=== PATIENT | female | born 1930 | race Caucasian/White ===

== ENCOUNTER 2016-06-29 17:44 | Inpatient (IN) | payer OTHER, BC ==
[~2016-06-29] VITALS: Ht 144.8 cm; Wt 38.8 kg
[~2016-06-29 17:44] MED LIST: ACET-1311 PO; ARTIOIN OPB; ASPI-435 PO; BSP/10 PO; CALC-211 PO; CARB25TA12 PO; CARB50TA3 PO; CHOL100010 PO; CYAN100020 PO; FERR325T18 PO; MIRT15TA PO; PANC1CAP PO; PANC1CAP17 PO; POLY99.02 OPB; ROPI2TAB PO; SENN-65 PO; SERT20CO PO
[2016-06-29] MEDS ORDERED: SODIUM CHLORIDE 0.9% 500ML 500 ML IV STA (18:06)
[2016-06-29 18:30] LABS: BASO % 0.3 %; BASO ABS # 0.04 K/uL (0-0.2); COMPLETE YES; EOS % 0.3 %; HEMATOCRIT 29.9 % (37-47); IG% 0.2 %; LYMPH % 11.7 %; LYMPH ABS # 1.45 K/uL (1.2-3.4); MEAN CELL VOLUME 92.6 fL (80-100); MEAN CORPUSCULAR HEMOGLOBIN 31.6 pg (25-34); MEAN CORPUSCULAR HGB CONC 34.1 g/dl (32-36); MEAN PLATELET VOLUME 10.5 fL (7.4-10.4); MONO % 11.8 %; NEUT % 75.7 %; PLATELET COUNT 413 K/uL (130-400); RED BLOOD COUNT 3.23 M/uL (4.2-5.4); WHITE BLOOD COUNT 12.38 K/uL (4.8-10.8)
--- NOTE | 2016-06-29 18:39 | DIAGNOSTIC IMAGING REPORT ---
SINGLE VIEW CHEST CLINICAL HISTORY: Change in mental status. FINDINGS: An AP, portable, upright chest radiograph is compared to study dated 02/11/2014. The examination is significantly degraded by portable technique and patient rotation. The heart is mildly enlarged and there is atherosclerotic calcification of the thoracic aorta. The pulmonary vasculature is noncongested. Chronic elevation of the right hemidiaphragm and chronic interstitial thickening is unchanged from previous. No airspace consolidation, large pleural effusion, or pneumothorax is seen. The skeletal structures are osteopenic. Scoliosis is noted in the thoracic spine. Arthritic change is present in the shoulders, left greater than right. IMPRESSION: Cardiomegaly with no acute cardiopulmonary abnormality. Electronically signed by: Landon Loo M.D. 06/29/2016 6:37 PM Dictated Date/Time: 06/29/2016 6:36 PM
[2016-06-29 18:56] LABS: ALT/SGPT 7 U/L (12-78); AST/SGOT 11 U/L (15-37); BLOOD UREA NITROGEN 38 mg/dl (7-18); BUN/CREATININE RATIO 37.7 (10-20); CALCIUM 9.9 mg/dl (8.5-10.1); CARBON DIOXIDE 28 mmol/L (21-32); CHLORIDE 107 mmol/L (98-107); GLUCOSE 95 mg/dl (70-99); MAGNESIUM 2.3 mg/dl (1.8-2.4); SODIUM 145 mmol/L (136-145)
[2016-06-29 19:01] LABS: ALKALINE PHOSPHATASE 85 U/L (45-117)
--- NOTE | 2016-06-29 19:04 | DIAGNOSTIC IMAGING REPORT ---
CT SCAN OF THE BRAIN WITHOUT IV CONTRAST CLINICAL HISTORY: Change in mental status. COMPARISON STUDY: CT of the brain dated 11/13/2015. TECHNIQUE: Unenhanced axial CT scan of the brain is performed from the vertex to the skull base. CT DOSE: 537.48 mGy.cm FINDINGS: Brain parenchyma: There are age-related involutional changes noting moderate subcortical and periventricular microangiopathic change. There is no hemorrhage, mass effect, or evidence of acute territorial ischemia by CT criteria. Lopes-white matter is preserved. No extra-axial fluid collection is seen. Ventricles, sulci, cisterns: Prominent secondary to involutional change. Intracranial vasculature: There is atherosclerotic calcification of the cavernous carotid and vertebral arteries. Calvarium: Unremarkable. Sinuses and mastoids: There is subtotal opacification of the left maxillary antrum with an air-fluid level. The remaining the visualized paranasal sinuses are clear. The mastoid air cells are well pneumatized. Orbits: The bony orbits are grossly intact. There are bilateral ocular lens implants. IMPRESSION: 1. Senescent changes as above with no hemorrhage, mass effect, or evidence of acute territorial ischemia by CT criteria. 2. Left maxillary sinus disease as above. Electronically signed by: Landon Loo M.D. 06/29/2016 7:02 PM Dictated Date/Time: 06/29/2016 6:59 PM
[2016-06-29 19:13] LABS: INR 1.1 (0.9-1.1); PARTIAL THROMBOPLASTIN RATIO 1.1
[2016-06-29] MEDS ORDERED: SODIUM CHLORIDE 0.9% 1000ML 1,000 ML IV STA (19:47)
[2016-06-29] MEDS ORDERED: ALUMINUM/MAGNESIUM/SIMETH (MAALOX MAX) 30 ML UDC PO PRN (20:45)
[2016-06-29] MEDS ORDERED: POLYETHYLENE (MIRALAX) 17 GM PACK PO PRN (20:45)
[2016-06-29] MEDS ORDERED: PANCREAZE (LIPASE 10,500U) CAP PO PRN (20:45)
[2016-06-29] MEDS ORDERED: MAGNESIUM HYDROXIDE SUSP 30 ML UDC PO PRN (20:45)
[2016-06-29] MEDS ORDERED: ONDANSETRON INJ 2 MG/ML 2 ML VIAL IV PRN (20:45)
[2016-06-29] MEDS ORDERED: ACETAMINOPHEN 325 MG TAB PO PRN (20:45)
[2016-06-29] MEDS ORDERED: CARBIDOPA/LEVODOPA 50/200MG EXT REL TAB PO SCH ×2 (21:00→23:00)
--- NOTE | 2016-06-29 21:06 | History and Physical ---
History & Physical Date & Time of Service: Jun 29, 2016 at 20:51 Chief Complaint: Low Grade Fever, Lethargy, Lack Of Appetite Primary Care Physician: Caryn Cho DO History of Present Illness Source: family Nishi Cruz is an 85 yo F with Parkinson's disease who resides at [facility] assisted living who presents with her daughter and son-in-law. The patient was sleeping upon my evaluation and did not communicate, so history was limited and taken from her daughter. Per daughter, she reports over the last 2 weeks the patient has not been eating or drinking much at all. She had a low grade fever last week ranging from 99-100F. She also seemed to not be as interactive as usual. She reportedly has lost weight over the recent months. The nurses at [facility] report her urine also smelled but did not have a sample to test. The daughter reports the patient's Parkinson's is mild but progressing - she does swallow but it takes encouraging from her daughter. She has no history of aspiration. She has not been coughing lately. Past Medical/Surgical History Medical Problems: (1) Closed left clavicular fracture Status: Resolved (2) Closed right tibial fracture Status: Resolved (3) Cushings syndrome Status: Chronic (4) Encounter for removal of michelle Status: Resolved (5) Fall Status: Resolved (6) Fall Status: Resolved (7) Fall at home Status: Resolved (8) Fracture of distal fibula Status: Resolved (9) Head injury Status: Resolved (10) Hypertension Status: Chronic (11) Laceration Status: Resolved (12) Parkinson disease Status: Chronic (13) Right Tibia and Fibula fractures Status: Resolved (14) Right Tibia Fracture Status: Resolved (15) Scalp laceration Status: Resolved (16) Scalp laceration Status: Resolved (17) Scalp laceration Status: Resolved Surgical Problems: (1) History of bilateral mastectomy Status: Resolved (2) History of cataract surgery Status: Resolved (3) History of hip replacement, total Status: Resolved (4) History of splenectomy Status: Resolved (5) Hx of total adrenalectomy Status: Resolved Family History Breast Ca Social History Smoking Status: Never Smoker Drug Use: none Marital Status: Occupational Status: retired Allergies Coded Allergies: Egg (Unverified Allergy, Unknown, UNKNOWN, 06/29/16) Penicillins (Verified Allergy, Unknown, RASH, 06/29/16) Spoke w daughter (Janine), who confirmed w Nishi that reaction was rash. Believes the reaction was to penicillin itself (vs. amoxicillin, etc). Home Medications Scheduled Artificial Tears (Artificial Tears), 1 DROPS OPB BID Artificial Tears Oph Oint (Lacri-Lube Sop Oph Oint), 1 APPLN OPB HS Aspirin (Aspirin 81), 81 MG PO DAILY Buspirone HCl (Buspirone HCl), 10 MG PO TID Calcium Carbonate-Cholecalcife (Oyster Shell Calcium + D), 1 TAB PO DAILY Carbidopa/Levodopa (Sinemet 25MG/100MG), 0.5 TAB PO 5XD Carbidopa/Levodopa (Sinemet Cr 50MG/200MG), 0.5 TAB PO 5XD Carbidopa/Levodopa (Sinemet Cr 50MG/200MG), 1 TAB PO HS Cholecalciferol (Vitamin D), 5,000 MG PO DAILY Cyanocobalamin (Vitamin B12), 1,000 MCG PO DAILY Ferrous Gluconate (Ferrous Gluconate), 324 MG PO DAILY Mirtazapine (Remeron), 15 MG PO DAILY Pancrelipase (Lipase-Protease- (Zenpep), 10,000 UNITS PO TIDM Ropinirole Hydrochloride (Requip Xl), 1 TAB PO DAILY Senna/Docusate Sod (Senokot S), 1-2 TAB PO HS Sertraline Hcl (Zoloft), 6 ML PO DAILY Scheduled PRN Acetaminophen (Tylenol), 650 MG PO Q6 PRN for Pain or Fever Pancrelipase (Lipase-Protease- (Zenpep [id number] Unit), 2 CAP PO UD PRN for W/SNACKS Review of Systems See HPI for pertinent positives & negatives, as per daughter. A total of 10 systems reviewed and were otherwise negative. Physical Exam Vital Signs Date Time Temp Pulse Resp B/P Pulse Ox O2 Delivery O2 Flow Rate FiO2 06/29/16 20:25 78 17 153/91 97 Room Air 06/29/16 18:37 37.3 79 20 145/87 95 06/29/16 18:10 81 06/29/16 18:03 94 06/29/16 18:03 36.7 83 96 Room Air 06/29/16 17:51 82 18 127/87 96 Room Air General Appearance: WD/WN, + cachetic, + thin Head: normocephalic, atraumatic Eyes: normal inspection, + pertinent finding (mild conjunctivitis R eye) ENT: + pertinent finding (dry) Neck: no JVD, no carotid bruits Respiratory/Chest: lungs clear, normal breath sounds, no respiratory distress Cardiovascular: regular rate, rhythm, no murmur, normal peripheral pulses Abdomen/GI: normal bowel sounds, non tender, soft Extremities/Musculoskelatal: no calf tenderness, no pedal edema Skin: + pertinent finding (small abrasian to R heel) Diagnostics Laboratory Results Results Past 24 Hours Test 06/29/16 18:18 Range/Units White Blood Count 12.38 4.8-10.8 K/uL Red Blood Count 3.23 4.2-5.4 M/uL Hemoglobin 10.2 12.0-16.0 g/dL Hematocrit 29.9 37-47 % Mean Corpuscular Volume 92.6 80-100 fL Mean Corpuscular Hemoglobin 31.6 25-34 pg Mean Corpuscular Hemoglobin Concent 34.1 32-36 g/dl Platelet Count 413 130-400 K/uL Mean Platelet Volume 10.5 7.4-10.4 fL Neutrophils (%) (Auto) 75.7 % Lymphocytes (%) (Auto) 11.7 % Monocytes (%) (Auto) 11.8 % Eosinophils (%) (Auto) 0.3 % Basophils (%) (Auto) 0.3 % Neutrophils # (Auto) 9.37 1.4-6.5 K/uL Lymphocytes # (Auto) 1.45 1.2-3.4 K/uL Monocytes # (Auto) 1.46 0.11-0.59 K/uL Eosinophils # (Auto) 0.04 0-0.5 K/uL Basophils # (Auto) 0.04 0-0.2 K/uL RDW Standard Deviation 45.5 36.4-46.3 fL RDW Coefficient of Variation 13.5 11.5-14.5 % Immature Granulocyte % (Auto) 0.2 % Immature Granulocyte # (Auto) 0.02 0.00-0.02 K/uL Prothrombin Time 12.0 9.0-12.0 SECONDS Prothromb Time International Ratio 1.1 0.9-1.1 Activated Partial Thromboplast Time 29.0 21.0-31.0 SECONDS Partial Thromboplastin Ratio 1.1 Sodium Level 145 136-145 mmol/L Potassium Level 4.0 3.5-5.1 mmol/L Chloride Level 107 98-107 mmol/L Carbon Dioxide Level 28 21-32 mmol/L Anion Gap 10.0 3-11 mmol/L Blood Urea Nitrogen 38 7-18 mg/dl Creatinine 1.00 0.60-1.20 mg/dl Estimated GFR () 59.9 Estimated GFR (Non- 51.7 BUN/Creatinine Ratio 37.7 10-20 Random Glucose 95 70-99 mg/dl Calcium Level 9.9 8.5-10.1 mg/dl Magnesium Level 2.3 1.8-2.4 mg/dl Total Bilirubin 0.6 0.2-1 mg/dl Direct Bilirubin 0.1 0-0.2 mg/dl Aspartate Amino Transf (AST/SGOT) 11 15-37 U/L Alanine Aminotransferase (ALT/SGPT) 7 12-78 U/L Alkaline Phosphatase 85 45-117 U/L Troponin I < 0.015 0-0.045 ng/ml Total Protein 7.6 6.4-8.2 gm/dl Albumin 3.1 3.4-5.0 gm/dl Diagnostic Radiology SINGLE VIEW CHEST CLINICAL HISTORY: Change in mental status. FINDINGS: An AP, portable, upright chest radiograph is compared to study dated 02/11/2014. The examination is significantly degraded by portable technique and patient rotation. The heart is mildly enlarged and there is atherosclerotic calcification of the thoracic aorta. The pulmonary vasculature is noncongested. Chronic elevation of the right hemidiaphragm and chronic interstitial thickening is unchanged from previous. No airspace consolidation, large pleural effusion, or pneumothorax is seen. The skeletal structures are osteopenic. Scoliosis is noted in the thoracic spine. Arthritic change is present in the shoulders, left greater than right. IMPRESSION: Cardiomegaly with no acute cardiopulmonary abnormality. CT HEAD: IMPRESSION: 1. Senescent changes as above with no hemorrhage, mass effect, or evidence of acute territorial ischemia by CT criteria. 2. Left maxillary sinus disease as above. Normal EKG Impression Assessment and Plan 85 yo F with lethargy, likely from dehydration,contributing to possible infection - urine vs sinusitis, with conjunctivitis. Plan: Dehydration - Fluid rehydration with 1/2NS with 20mmoL KCL 100mL hour. Received 2 fluid boluses in ED. Infection - pending UA, multiple failed attempts in ED, but left sinusitis on CT - will treat with Rocephin for now Conjunctivitis - Eyedrops to both eyes as prescribed Parkinson's disease - Continue home regime of Sinemet ER 50/200 0.5tablets 5x/ day and 1 tablet qHS, with Sinemet 25/100 0.5tablets 5x/day. Continue Ropinirole. Heel abrasion: Waffle boots PT/OT/Speech study - would benefit from doing this while daughter is there if able to coordinate this VTE: Heparin CODE STATUS: DNR Dispo: Med/Surg VTE Prophylaxis VTE Risk Assessment Done? Y/N: Yes Risk Level: Moderate Resident Tracking Resident Involvement: Resident Care Provided Care Provided: [facility] Medicine Assessment and Plan Attending addendum: I have personally seen and examined this patient, supervised the resident's activity, and my H&P is as follows below. HPI: The patient is an 85-year-old female resident of [facility] with a known history of Parkinson's disease who is brought to the emergency department by her daughter and son-in-law due to lethargy, decreased oral intake over the past 2 weeks, with last substantive meal 2 days ago, and temperature last week ranging from 99-100F. The nurses at [facility] had noted that her urine had a stronger smell than usual and because of the combination of signs and symptoms the patient was brought to the emergency department for assessment. She does have a history of slowly progressive Parkinson's disease, but at a baseline has been interactive with family and nurses. The patient only briefly opens her eyes, and most of the history of present illness and review of systems is obtained from her daughter, who is very involved in her care. Review of systems: The patient's daughter denies that the patient has had chest pain, palpitations , shortness of breath, cough, lower extremity swelling, vision change, hearing change, sore throat, nausea, vomiting, abdominal pain, pelvic pain, blood in urine or stool, headache, rash, abnormal bruising or bleeding, imbalance, focal weakness, numbness or tingling in arms or legs, night sweats, or allergy symptoms. The review of systems is otherwise negative other than for that already noted above, and at least 10 systems have been reviewed. 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 Lacri-Lube ophthalmic ointment, 1 application OPB at bedtime. Aspirin 81 mg by mouth daily. Buspirone 10 mg by mouth 3 times a day. Calcium carbonate 1 tablet by mouth daily. Carbidopa/levodopa 25/100, 0.5 tabs by mouth 5 times per day. Carbidopa/levodopa CR 50/200, 0.5 tablets by mouth 5 times per day. Carbidopa/levodopa CR 50/200, 1 by mouth at bedtime. Cholecalciferol, 5000 mg by mouth daily. Cyanocobalamin 1000 g by mouth daily. Ferrous gluconate 324 mg by mouth daily. Mirtazapine 15 mg by mouth at bedtime. Pancrelipase 10,000 units by mouth 3 times a day with meals. Ropinirole 2 mg by mouth at bedtime. Senokot-S one to 2 tablets by mouth at bedtime. Sertraline 20 mg per mL concentrate, taking 6 mils by mouth daily, for a total 120 mg. Physical examination: The patient is lethargic, does open her eyes to her name being called by her daughter, is lying in bed and in no acute distress. HEENT--PERRL, mucous membranes and oropharynx dry. Crusting at the bases both lashes bilaterally. Neck--supple, no JVD or bruits, thyroid normal, trachea midline, no adenopathy. Heart--normal S1 and S2, no extra beats, no murmurs, rubs or gallops. Lungs--diminished throughout, no respiratory distress, no accessory muscle use. Abdomen--normal bowel sounds and soft, nontender and nondistended, no hernias or masses, no organomegaly. Extremities--no cyanosis, clubbing or edema. There are good distal pulses b/l. Dermatologic--right heel with softening and small abrasion. Neurologic--cranial nerves II through XII grossly intact. Rheumatologic--deferred Psychiatric--lethargic. Imaging studies: Chest x-ray--no acute findings. CT of the head without contrast--left maxillary sinusitis. Urinalysis--positive for infection. Assessment and plan: Altered mental status--secondary to UTI, left maxillary sinusitis, and overall decreased oral intake leading to dehydration. The patient will be admitted to the medical floor, place on ceftriaxone 1 g IV daily, follow urine culture and sensitivity reports, and CBCD, BMP and magnesium levels. Place on half-normal saline with potassium chloride 20 mEq at 100 mils per hour. Bilateral conjunctivitis--place on sulfa Sulamyd ophthalmic solution 10% concentration 2 drops OPB 4 times a day. Parkinson's disease--continue regimen above as outlined. Early Right heal skin changes--incipient stage of injury taking place, we'll place and waffle boots prophylactically. Restless leg syndrome--continue ropinirole 2 mg by mouth at bedtime Anxiety/depression continue sertraline 120 mg liquid by mouth daily and buspirone 10 mg by mouth 3 times a day. Plan B12 deficiency--continue with his micrograms by mouth daily supplement. Malabsorption syndrome--continue pancrelipase as outlined above. Deconditioning--we'll consult PT/OT, discussed with daughter that since her mother stays at [facility], she may need a brief stay at [facility] or other rehabilitation facility prior to go back there if she remains weak. DVT prophylaxis--SCDs and heparin subcutaneous.
--- NOTE | 2016-06-29 21:10 | EMERGENCY ROOM VISIT NOTE ---
History Report prepared by Harsha: Yovana Peterson Under the Supervision of: Dr. Jorge Alamo D.O. First contact with patient: 17:53 Chief Complaint: LETHARGIC Stated Complaint: LOW GRADE FEVER, LETHARGY, LACK OF APPETITE History of Present Illness The patient is a 85 year old female who presents to the Emergency Room via family to be evaluated for worsening lethargy over the past 6 days. Per patient' s daughter, the patient has been running a low-grade fever below 100.4. She has not been eating or drinking compared to baseline. At baseline, she is able to feed herself, talk, and walk with a walker. Currently, she is not able to ambulate on her own. A week ago, the patient went on a walk with her daughter and seemed to be her normal self, but started to decline the following day. Per patient's daughter, staff at the assisted living facility where the patient resides have noticed that her urine smells foul. Pt denies headache, change in vision, chest pain, shortness of breath, nausea, vomiting, diarrhea, pain with urination, and melena. Source of History: patient, family Onset: 6 days ago Position: other (Global) Quality: other (lethargic) Timing: worsening Associated Symptoms: + fevers (low-grade), + urinary symptoms (foul smelling urine), No SOB, No chest pain, No diarrhea, No headache, No melena, No nausea, No vomiting Note: Other symptoms: decreased appetite Review of Systems See HPI for pertinent positives & negatives. A total of 10 systems reviewed and were otherwise negative. Past Medical & Surgical Medical Problems: (1) Closed left clavicular fracture (2) Closed right tibial fracture (3) Cushings syndrome (4) Dehydration (5) Encounter for removal of michelle (6) Fall (7) Fall (8) Fall at home (9) Fracture of distal fibula (10) Head injury (11) Hypertension (12) Laceration (13) Osteoporosis Nos (14) Parkinson disease (15) Right Tibia and Fibula fractures (16) Right Tibia Fracture (17) Scalp laceration (18) Scalp laceration (19) Scalp laceration (20) Urinary tract infection Surgical Problems: (1) History of bilateral mastectomy (2) History of cataract surgery (3) History of hip replacement, 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 Family History Noncontributory secondary to age. Social History Smoking Status: Never Smoker Alcohol Use: none Drug Use: none Marital Status: Housing Status: half-way Occupation Status: retired Current/Historical Medications Scheduled Artificial Tears (Artificial Tears), 1 DROPS OPB BID Artificial Tears Oph Oint (Lacri-Lube Sop Oph Oint), 1 APPLN OPB HS Aspirin (Aspirin 81), 81 MG PO DAILY Buspirone HCl (Buspirone HCl), 10 MG PO TID Calcium Carbonate-Cholecalcife (Oyster Shell Calcium + D), 1 TAB PO DAILY Carbidopa/Levodopa (Sinemet 25MG/100MG), 0.5 TAB PO 5XD Carbidopa/Levodopa (Sinemet Cr 50MG/200MG), 0.5 TAB PO 5XD Carbidopa/Levodopa (Sinemet Cr 50MG/200MG), 1 TAB PO HS Cholecalciferol (Vitamin D), 5,000 MG PO DAILY Cyanocobalamin (Vitamin B12), 1,000 MCG PO DAILY Ferrous Gluconate (Ferrous Gluconate), 324 MG PO DAILY Mirtazapine (Remeron), 15 MG PO DAILY Pancrelipase (Lipase-Protease- (Zenpep), 10,000 UNITS PO TIDM Ropinirole Hydrochloride (Requip Xl), 1 TAB PO DAILY Senna/Docusate Sod (Senokot S), 1-2 TAB PO HS Sertraline Hcl (Zoloft), 6 ML PO DAILY Scheduled PRN Acetaminophen (Tylenol), 650 MG PO Q6 PRN for Pain or Fever Pancrelipase (Lipase-Protease- (Zenpep 41315 Unit), 2 CAP PO UD PRN for W/SNACKS Allergies Coded Allergies: Egg (Unverified Allergy, Unknown, UNKNOWN, 06/29/16) Penicillins (Verified Allergy, Unknown, RASH, 06/29/16) Spoke w daughter (Janine), who confirmed w Nishi that reaction was rash. Believes the reaction was to penicillin itself (vs. amoxicillin, etc). Physical Exam Vital Signs Date Time Temp Pulse Resp B/P Pulse Ox O2 Delivery O2 Flow Rate FiO2 06/29/16 20:25 78 17 153/91 97 Room Air 06/29/16 18:37 37.3 79 20 145/87 95 06/29/16 18:10 81 06/29/16 18:03 94 06/29/16 18:03 36.7 83 96 Room Air 06/29/16 17:51 82 18 127/87 96 Room Air Physical Exam GENERAL: Cachectic, no acute distress, disheveled. EYE EXAM: normal conjunctiva OROPHARYNX: no exudate, no erythema, lips, buccal mucosa, and tongue normal and mucous membranes are moist NECK: supple, no nuchal rigidity, no adenopathy, non-tender LUNGS: Clear to auscultation. Normal chest wall mechanics HEART: no murmurs, S1 normal and S2 normal ABDOMEN: abdomen soft, non-tender, normo-active bowel sounds, no masses, no rebound or guarding. BACK: Back is symmetrical on inspection and there is no deformity, no midline tenderness, no CVA tenderness. SKIN: no rashes and no bruising UPPER EXTREMITIES: upper extremities are grossly normal. LOWER EXTREMITIES: No pitting edema. NEURO EXAM: Eyes are open and tracking, nods head to yes and no questions, non- verbal, able to give bilateral thumbs up and wiggle toes. Medical Decision & Procedures ER Provider Diagnostic Interpretation: Xray results per the radiologist and my interpretation. Other results have been interpreted by the radiologist and reviewed by me. CT SCAN OF THE BRAIN WITHOUT IV CONTRAST CLINICAL HISTORY: Change in mental status. COMPARISON STUDY: CT of the brain dated 11/13/2015. TECHNIQUE: Unenhanced axial CT scan of the brain is performed from the vertex to the skull base. CT DOSE: 537.48 mGy.cm FINDINGS: Brain parenchyma: There are age-related involutional changes noting moderate subcortical and periventricular microangiopathic change. There is no hemorrhage, mass effect, or evidence of acute territorial ischemia by CT criteria. Lopes-white matter is preserved. No extra-axial fluid collection is seen. Ventricles, sulci, cisterns: Prominent secondary to involutional change. Intracranial vasculature: There is atherosclerotic calcification of the cavernous carotid and vertebral arteries. Calvarium: Unremarkable. Sinuses and mastoids: There is subtotal opacification of the left maxillary antrum with an air-fluid level. The remaining the visualized paranasal sinuses are clear. The mastoid air cells are well pneumatized. Orbits: The bony orbits are grossly intact. There are bilateral ocular lens implants. IMPRESSION: 1. Senescent changes as above with no hemorrhage, mass effect, or evidence of acute territorial ischemia by CT criteria. 2. Left maxillary sinus disease as above. Electronically signed by: Landon Loo M.D. 06/29/2016 7:02 PM Dictated Date/Time: 06/29/2016 6:59 PM SINGLE VIEW CHEST CLINICAL HISTORY: Change in mental status. FINDINGS: An AP, portable, upright chest radiograph is compared to study dated 02/11/2014. The examination is significantly degraded by portable technique and patient rotation. The heart is mildly enlarged and there is atherosclerotic calcification of the thoracic aorta. The pulmonary vasculature is noncongested. Chronic elevation of the right hemidiaphragm and chronic interstitial thickening is unchanged from previous. No airspace consolidation, large pleural effusion, or pneumothorax is seen. The skeletal structures are osteopenic. Scoliosis is noted in the thoracic spine. Arthritic change is present in the shoulders, left greater than right. IMPRESSION: Cardiomegaly with no acute cardiopulmonary abnormality. Electronically signed by: Landon Loo M.D. 06/29/2016 6:37 PM Dictated Date/Time: 06/29/2016 6:36 PM Laboratory Results 06/29/16 18:18 Red Blood Count 3.23, Mean Corpuscular Volume 92.6, Mean Corpuscular Hemoglobin 31.6, Mean Corpuscular Hemoglobin Concent 34.1, Mean Platelet Volume 10.5, Neutrophils (%) (Auto) 75.7, Lymphocytes (%) (Auto) 11.7, Monocytes (%) (Auto) 11.8, Eosinophils (%) (Auto) 0.3, Basophils (%) (Auto) 0.3, Neutrophils # (Auto ) 9.37, Lymphocytes # (Auto) 1.45, Monocytes # (Auto) 1.46, Eosinophils # (Auto ) 0.04, Basophils # (Auto) 0.04 06/29/16 18:18 Test 06/29/16 18:18 White Blood Count 12.38 K/uL (4.8-10.8) Red Blood Count 3.23 M/uL (4.2-5.4) Hemoglobin 10.2 g/dL (12.0-16.0) Hematocrit 29.9 % (37-47) Mean Corpuscular Volume 92.6 fL (80-100) Mean Corpuscular Hemoglobin 31.6 pg (25-34) Mean Corpuscular Hemoglobin Concent 34.1 g/dl (32-36) Platelet Count 413 K/uL (130-400) Mean Platelet Volume 10.5 fL (7.4-10.4) Neutrophils (%) (Auto) 75.7 % Lymphocytes (%) (Auto) 11.7 % Monocytes (%) (Auto) 11.8 % Eosinophils (%) (Auto) 0.3 % Basophils (%) (Auto) 0.3 % Neutrophils # (Auto) 9.37 K/uL (1.4-6.5) Lymphocytes # (Auto) 1.45 K/uL (1.2-3.4) Monocytes # (Auto) 1.46 K/uL (0.11-0.59) Eosinophils # (Auto) 0.04 K/uL (0-0.5) Basophils # (Auto) 0.04 K/uL (0-0.2) RDW Standard Deviation 45.5 fL (36.4-46.3) RDW Coefficient of Variation 13.5 % (11.5-14.5) Immature Granulocyte % (Auto) 0.2 % Immature Granulocyte # (Auto) 0.02 K/uL (0.00-0.02) Prothrombin Time 12.0 SECONDS (9.0-12.0) Prothromb Time International Ratio 1.1 (0.9-1.1) Activated Partial Thromboplast Time 29.0 SECONDS (21.0-31.0) Partial Thromboplastin Ratio 1.1 Anion Gap 10.0 mmol/L (3-11) Estimated GFR () 59.9 Estimated GFR (Non- 51.7 BUN/Creatinine Ratio 37.7 (10-20) Calcium Level 9.9 mg/dl (8.5-10.1) Magnesium Level 2.3 mg/dl (1.8-2.4) Total Bilirubin 0.6 mg/dl (0.2-1) Direct Bilirubin 0.1 mg/dl (0-0.2) Aspartate Amino Transf (AST/SGOT) 11 U/L (15-37) Alanine Aminotransferase (ALT/SGPT) 7 U/L (12-78) Alkaline Phosphatase 85 U/L (45-117) Troponin I < 0.015 ng/ml (0-0.045) Total Protein 7.6 gm/dl (6.4-8.2) Albumin 3.1 gm/dl (3.4-5.0) Laboratory results per my review. Medications Administered Medications (Trade) Dose Ordered Sig/Laura Route Start Time Stop Time Status Last Admin Dose Admin Sodium Chloride 500 ml @ 999 mls/hr Q31M STAT IV 06/29/16 18:06 06/29/16 18:36 DC 06/29/16 18:40 999 MLS/HR Sodium Chloride (Nss 1000ml) 1,000 ml @ 999 mls/hr Q1H1M STAT IV 06/29/16 19:47 06/29/16 20:47 DC 06/29/16 19:47 999 MLS/HR ECG Indication: weakness Rate (beats per minute): 81 Rhythm: sinus rhythm Findings: left axis deviation, other (ST scooping, peaked T waves laterally) ED Course ED COURSE: Vital signs were reviewed and showed normal vitals. The patients medical record was reviewed The above diagnostic studies were performed and reviewed. ED treatments and interventions as stated above. 1800: The patient was evaluated in room C7. A complete history and physical examination was performed. 1805: Ordered NSS 500 ml @ 999 mls/hr IV. 1946: I reassessed the patient and spoke with the family about results. They would prefer to take her home, but will take some time to think about it. Ordered NSS 1000 ml @ 999 mls/hr IV. 2044: Upon reevaluation, the patient is stable.I discussed my findings with the patient's family and they understand and agree with the treatment plan. Based on the patients age, coexisting illnesses, exam and lab findings the decision to treat as an inpatient was made. The patient remained stable while under my care. The patient will be evaluated for further management. 2025: I discussed the case with Dr. Tucker [facility] Hospitalist. The patient will be evaluated for further management. Medical Decision Differential diagnoses includes but is not limited to toxic, metabolic, infectious, traumatic, cardiac, neurologic, hematologic, psychiatric and inflammatory etiologies. Patient is an 85-year-old female brought in by daughter from half-way for diffuse weakness. She is not been an drinking for the past several days. She' s been running low-grade fevers less than 100. Patient is nonverbal but answers questions by nodding her head. She is normally able to ambulate and carry on a conversation. She does have a history of Parkinson's. On exam she is very malnourished and cachectic. She has a mild leukocytosis of 12,000. No significant anemia. BMP along with LFTs, bilirubin, magnesium, troponin are all negative. Straight cath was performed but there is no urine. She is given 1.5 L normal saline. Patient family were updated at bedside. She is in its internal medicine for failure to thrive diffuse weakness. Consults Time Called: 2021 Consulting Physician: Dr. Garrett FLOWERS Hospitalist Returned Call: 2025 I discussed the case with Dr. Garrett FLOWERS Hospitalist. The patient will be evaluated for further management. Impression Primary Impression: Altered mental status Additional Impression: Weakness Scribe Attestation The scribe's documentation has been prepared under my direction and personally reviewed by me in its entirety. I confirm that the note above accurately reflects all work, treatment, procedures, and medical decision making performed by me. Departure Information Dispostion Being Evaluated By Hospitalist Referrals Caryn Cho DO (PCP) Patient Instructions My [facility] Problem Qualifiers Primary Impression: Altered mental status Altered mental status type: unspecified Qualified Codes: R41.82 - Altered mental status, unspecified
[2016-06-29] MEDS: SODIUM CHLOR 0.45% + 20MEQ KCL 1,000 ML IV SCH (22:24)
[2016-06-29] MEDS: CEFTRIAXONE SOD INJ 2,000 MG in DEXTROSE 5% 50ML 50 ML IV SCH (22:25)
[2016-06-29] MEDS: HEPARIN SOD 5000 UNIT/0.5 ML CARP SQ SCH (22:27)
[2016-06-29 22:29] LABS: URINE APPEARANCE TURBID (CLEAR); URINE BILIRUBIN NEG (NEG); URINE COLOR YELLOW; URINE NITRITE POS (NEG); URINE SPECIFIC GRAVITY 1.015 (1.000-1.030); UROBILINOGEN NEG (NEG); ZZURINE CULT IF INDIC CATH YES
[2016-06-29] MEDS: ARTIFICIAL TEARS OP OINT 3.5 GM TUBE OPB SCH (22:30)
[2016-06-29] MEDS: ARTIFICIAL TEARS OP SOLN OPB SCH ×2 (22:31)
[2016-06-29 22:35] LABS: MANUAL MICROSCOPIC REQUIRED? NO; REVIEW REQ? YES
[2016-06-29] MEDS ORDERED: CARBIDOPA/LEVODOPA 25/100MG TAB PO SCH (23:00)
[2016-06-29] MEDS ORDERED: NURSING VERBAL MED ORDER ONE (23:00)
[2016-06-29 23:14] VITALS: BP 159/88; PULSE 76; TEMP 36.3; O2SAT 98
[2016-06-29 23:21] VITALS: BP 152/85; PULSE 78; TEMP 36.5; O2SAT 97; BMI 18.5
[2016-06-29] MEDS: DOCUSATE SODIUM/SENNA 50/8.6MG TAB PO SCH (23:47)
[2016-06-29] MEDS: CARBIDOPA/LEVODOPA 50/200MG EXT REL TAB PO SCH (23:47)
[2016-06-29] MEDS: REQUIP XL - ORDER AWAITING ACTION SCH (23:47)
[2016-06-30 01:53] LABS: INFLUENZA A PCR Neg for Influ A (NEG); INFLUENZA B PCR Neg for Influ B (NEG)
[2016-06-30] MEDS: CARBIDOPA/LEVODOPA 25/100MG TAB PO SCH ×5 (06:30→19:00)
[2016-06-30] MEDS: CARBIDOPA/LEVODOPA 50/200MG EXT REL TAB PO SCH ×6 (06:30→23:00)
[2016-06-30 07:24] VITALS: PULSE 74; TEMP 36.8
[2016-06-30 07:25] VITALS: BP 163/98; PULSE 74; TEMP 36.8; O2SAT 95
[2016-06-30] MEDS: SODIUM CHLOR 0.45% + 20MEQ KCL 1,000 ML IV SCH ×2 (07:35→17:29)
[2016-06-30] MEDS: REQUIP XL - ORDER AWAITING ACTION SCH ×3 (07:35→23:11)
[2016-06-30] MEDS: SULFACETAMIDE SODIUM 10% OP SOLN 15 ML BTL OP SCH ×4 (07:36→20:51)
[2016-06-30] MEDS: ARTIFICIAL TEARS OP SOLN OPB SCH ×4 (07:37→20:52)
[2016-06-30] MEDS: FERROUS GLUCONATE 324 MG TAB PO SCH (07:40)
[2016-06-30] MEDS: ASPIRIN 81 MG ECTAB PO SCH (07:40)
[2016-06-30] MEDS: CALCIUM 600MG + VIT D 400 IU TAB PO SCH (07:40)
[2016-06-30] MEDS: SERTRALINE HCL 50 MG TAB PO SCH (07:40)
[2016-06-30] MEDS: CYANOCOBALAMIN 500 MCG TAB (VIT B-12) PO SCH (07:40)
[2016-06-30] MEDS: PANCREAZE (LIPASE 10,500U) CAP PO SCH ×3 (07:40→16:38)
[2016-06-30] MEDS: HEPARIN SOD 5000 UNIT/0.5 ML CARP SQ SCH ×2 (07:44→20:53)
[2016-06-30] MEDS ORDERED: MIRTAZAPINE TAB 15 MG TAB PO SCH (08:00)
--- NOTE | 2016-06-30 09:15 | Clinical Documentation Query ---
CLINICAL DOCUMENTATION QUERY Dr. CURTIS, In your clinical opinion is this patient being managed for: ( ) Metabolic encephalopathy ( ) Other explanation of clinical findings (Please Explain) ( ) Unable to determine (Please Define) ( ) Need to Discuss ( ) Not Agree The medical record reflects the following clinical findings, treatment, and risk factors. Clinical Indicators: 85 yo female presenting with worsening lethargy, low grade temperature. WBC 12.39, BUN 38, UA with large LE/WBC >30/bacteria +4. CT head showed subtotal opacification of the left maxillary antrum with an air-fluid level Treatment: IV fluid bolus 1.5 L then continuous, UA cx pending, IV rocephin, serial labs, CT head Risk Factors: age, suspected UTI, sinusitis, dehydration Please clarify and document your clinical opinion in the progress notes and discharge summary. Terms such as "probable", "suspected", "likely", "questionable", "possible", or "still to be ruled out" are acceptable. IF IN AGREEMENT, YOU MUST DOCUMENT ABOVE DIAGNOSTIC STATEMENT IN DAILY PROGRESS NOTES AND DISCHARGE SUMMARY. This document is not part of the patient's record. Thank You, Maryan Olmedo, MOISÉS [phone]
--- NOTE | 2016-06-30 09:16 | Clinical Documentation Query ---
CLINICAL DOCUMENTATION QUERY Dr. DENTON, In your clinical opinion is this patient being managed for: ( x ) Metabolic encephalopathy ( ) Other explanation of clinical findings (Please Explain) ( ) Unable to determine (Please Define) ( ) Need to Discuss ( ) Not Agree The medical record reflects the following clinical findings, treatment, and risk factors. Clinical Indicators: 85 yo female presenting with worsening lethargy, low grade temperature. WBC 12.39, BUN 38, UA with large LE/WBC >30/bacteria +4. CT head showed subtotal opacification of the left maxillary antrum with an air-fluid level Treatment: IV fluid bolus 1.5 L then continuous, UA cx pending, IV rocephin, serial labs, CT head Risk Factors: age, suspected UTI, sinusitis, dehydration Please clarify and document your clinical opinion in the progress notes and discharge summary. Terms such as "probable", "suspected", "likely", "questionable", "possible", or "still to be ruled out" are acceptable. IF IN AGREEMENT, YOU MUST DOCUMENT ABOVE DIAGNOSTIC STATEMENT IN DAILY PROGRESS NOTES AND DISCHARGE SUMMARY. This document is not part of the patient's record. Thank You, Maryan Olmedo RN [phone]
[2016-06-30 09:18] LABS: HEMATOCRIT 29.3 % (37-47); MEAN CELL VOLUME 93.9 fL (80-100); MEAN CORPUSCULAR HEMOGLOBIN 31.1 pg (25-34); MEAN CORPUSCULAR HGB CONC 33.1 g/dl (32-36); MEAN PLATELET VOLUME 10.9 fL (7.4-10.4); PLATELET COUNT 378 K/uL (130-400); RED BLOOD COUNT 3.12 M/uL (4.2-5.4); WHITE BLOOD COUNT 10.49 K/uL (4.8-10.8)
[2016-06-30 09:51] LABS: BUN/CREATININE RATIO 36.5 (10-20); CALCIUM 8.8 mg/dl (8.5-10.1); CREATININE 0.63 mg/dl (0.60-1.20); POTASSIUM 4.2 mmol/L (3.5-5.1)
--- NOTE | 2016-06-30 12:58 | Family Medicine Progress Note ---
Progress Note Date of Service Jun 30, 2016. Subjective Pt evaluation today including: conversation w/ family, physical exam Unable to complete ROS and history because patient was very lethargic lengthy discussion with Dr Mott and I about the patient's care. The son in law and daughter had a lot of concerns revolving around the patient' s care. First off the family was worried that the patient was not receiving her medications in particular her Sinemet because they believe she has not been getting her correct dose for a few days and this could be te cause of this lethargy. It was discussed and we reiterated our concern many time about aspiration risks etc. Family understood and stated that the will not try to feed / give drinks to the patient prior to asking nurses. They would also like to visit the idea of an NG tube tomorrow and it necessity. Once NG tube is in we will revisit the idea for nutrition and family agrees with rehydration at this time. They were also very concerned with the patient's lack of PT/OT visits as they believe the patient's lack of moving is what is causing the patient's symptoms. We described to the patient that when a patient is ill such as with a UTI and is an older age that reserve etc is depleted and can affect an individual more profoundly. Agreed to order PT/OT but they can assess and they will know how aggressive is appropriate for the patient. Family understood and was agreeable to this. Another concern was that the patient has a tendency to have high anxiety and family does not wish to have her care discussed in the room where she can hear as they believe this will worsen the psyche. Daughter did note that she does have a fear that this is "the end" however " i'm not ready to accept it and I don't believe this is it." As per the family the patient was mentating very well prior to the past two weeks and even went to vote. She would visit her girlfriends at lunch and was able to ambulate with a walker. This is very far from the patient's BL. Medications Medications Administered Medications (Trade) Dose Ordered Sig/Laura Route Start Time Stop Time Status Last Admin Dose Admin Sodium Chloride 500 ml @ 999 mls/hr Q31M STAT IV 06/29/16 18:06 06/29/16 18:36 DC 06/29/16 18:40 999 MLS/HR Sodium Chloride (Nss 1000ml) 1,000 ml @ 999 mls/hr Q1H1M STAT IV 06/29/16 19:47 06/29/16 20:47 DC 06/29/16 19:47 999 MLS/HR Heparin Sodium (Porcine) 5000 unit 5,000 unit Q12 SQ 06/29/16 22:00 07/29/16 21:59 06/30/16 07:44 5,000 UNIT Ceftriaxone Sodium 2000 mg/ Dextrose 70 ml @ 100 mls/hr Q24H IV 06/29/16 22:00 07/09/16 21:59 06/29/16 22:25 100 MLS/HR Potassium Chloride/Sodium Chloride (06/08 Nss + 20meq KCl 1000ml) 1,000 ml @ 100 mls/hr Q10H IV 06/29/16 22:00 07/29/16 21:59 06/30/16 07:35 100 MLS/HR Artificial Tears (Lacri-Lube Oph Oint) 1 appln HS OPB 06/29/16 21:00 07/29/16 20:59 06/29/16 22:30 1 APPLN Artificial Tears (Artificial Tears) 1 drops BID OPB 06/29/16 21:00 07/29/16 20:59 06/30/16 07:37 1 DROPS Sulfacetamide Sodium (Sulfacetamide Sod 10% Oph Soln) 2 drops QID OP 06/29/16 21:00 07/29/16 20:59 06/30/16 11:46 2 DROPS Objective Vital Signs Date Time Temp Pulse Resp B/P Pulse Ox O2 Delivery O2 Flow Rate FiO2 06/30/16 07:30 Room Air 06/30/16 07:25 36.8 74 20 163/98 95 Room Air 06/30/16 07:24 36.8 74 06/29/16 23:21 36.5 78 16 152/85 97 Room Air 06/29/16 23:14 36.3 76 22 159/88 98 Room Air 06/29/16 21:53 81 16 161/95 96 06/29/16 20:25 78 17 153/91 97 Room Air 06/29/16 18:37 37.3 79 20 145/87 95 06/29/16 18:10 81 06/29/16 18:03 94 06/29/16 18:03 36.7 83 96 Room Air 06/29/16 17:51 82 18 127/87 96 Room Air Physical Exam General Appearance: WD/WN, no apparent distress, + cachetic Eyes: normal inspection, + pertinent finding (slightly sunken eyes) ENT: + pertinent finding (dry lips and tongue) Neck: supple Respiratory/Chest: lungs clear, normal breath sounds, no respiratory distress, no accessory muscle use Cardiovascular: regular rate, rhythm, no murmur Abdomen: normal bowel sounds, soft Extremities: normal inspection, no pedal edema, no calf tenderness Neurologic/Psychiatric: + pertinent finding (very somnolent, requires a lot of coaxing to awaken and does not respond to questions) Skin: normal color, warm/dry, no rash Lymphatic: no adenopathy Laboratory Results Results Past 24 Hours Test 06/29/16 18:18 06/29/16 21:35 06/30/16 00:00 06/30/16 08:30 Range/Units White Blood Count 12.38 10.49 4.8-10.8 K/uL Red Blood Count 3.23 3.12 4.2-5.4 M/uL Hemoglobin 10.2 9.7 12.0-16.0 g/dL Hematocrit 29.9 29.3 37-47 % Mean Corpuscular Volume 92.6 93.9 80-100 fL Mean Corpuscular Hemoglobin 31.6 31.1 25-34 pg Mean Corpuscular Hemoglobin Concent 34.1 33.1 32-36 g/dl Platelet Count 413 378 130-400 K/uL Mean Platelet Volume 10.5 10.9 7.4-10.4 fL Neutrophils (%) (Auto) 75.7 % Lymphocytes (%) (Auto) 11.7 % Monocytes (%) (Auto) 11.8 % Eosinophils (%) (Auto) 0.3 % Basophils (%) (Auto) 0.3 % Neutrophils # (Auto) 9.37 1.4-6.5 K/uL Lymphocytes # (Auto) 1.45 1.2-3.4 K/uL Monocytes # (Auto) 1.46 0.11-0.59 K/uL Eosinophils # (Auto) 0.04 0-0.5 K/uL Basophils # (Auto) 0.04 0-0.2 K/uL RDW Standard Deviation 45.5 47.0 36.4-46.3 fL RDW Coefficient of Variation 13.5 13.8 11.5-14.5 % Immature Granulocyte % (Auto) 0.2 % Immature Granulocyte # (Auto) 0.02 0.00-0.02 K/uL Prothrombin Time 12.0 9.0-12.0 SECONDS Prothromb Time International Ratio 1.1 0.9-1.1 Activated Partial Thromboplast Time 29.0 21.0-31.0 SECONDS Partial Thromboplastin Ratio 1.1 Sodium Level 145 143 136-145 mmol/L Potassium Level 4.0 4.2 3.5-5.1 mmol/L Chloride Level 107 109 98-107 mmol/L Carbon Dioxide Level 28 22 21-32 mmol/L Anion Gap 10.0 12.0 3-11 mmol/L Blood Urea Nitrogen 38 23 7-18 mg/dl Creatinine 1.00 0.63 0.60-1.20 mg/dl Estimated GFR () 59.9 95.5 Estimated GFR (Non- 51.7 82.4 BUN/Creatinine Ratio 37.7 36.5 10-20 Random Glucose 95 77 70-99 mg/dl Calcium Level 9.9 8.8 8.5-10.1 mg/dl Magnesium Level 2.3 1.8-2.4 mg/dl Total Bilirubin 0.6 0.2-1 mg/dl Direct Bilirubin 0.1 0-0.2 mg/dl Aspartate Amino Transf (AST/SGOT) 11 15-37 U/L Alanine Aminotransferase (ALT/SGPT) 7 12-78 U/L Alkaline Phosphatase 85 45-117 U/L Troponin I < 0.015 0-0.045 ng/ml Total Protein 7.6 6.4-8.2 gm/dl Albumin 3.1 3.4-5.0 gm/dl Urine Color YELLOW Urine Appearance TURBID CLEAR Urine pH 5.0 4.5-7.5 Urine Specific [place] 1.015 1.000-1.030 Urine Protein TRACE NEG Urine Glucose (UA) NEG NEG Urine Ketones TRACE NEG Urine Occult Blood 1+ NEG Urine Nitrite POS NEG Urine Bilirubin NEG NEG Urine Urobilinogen NEG NEG Urine Leukocyte Esterase LARGE NEG Urine WBC (Auto) >30 0-5 /hpf Urine RBC (Auto) 0-4 0-4 /hpf Urine Hyaline Casts (Auto) 0 0-5 /lpf Urine Epithelial Cells (Auto) 10-20 0-5 /lpf Urine Bacteria (Auto) 4+ NEG Urine Pathogenic Casts 0 /lpf Urine Yeast (Auto) NONE PRSENT Influenza Type A (RT-PCR) Neg for Influ A NEG Influenza Type B (RT-PCR) Neg for Influ B NEG Nucleated RBC Absolute Count (auto) 0.02 0-0 K/uL Nucleated Red Blood Cells % 0.2 % Est Creatinine Clear Calc Drug Dose 40.5 ml/min Microbiology Results 06/29/16 Urine Culture - Preliminary, Resulted Escherichia Coli Assessment and Plan 85 yo F with a h/o parkinsonism that is currently being treated for metabolic encephalopathy for dehydration/ UTI. She is being empirically treated with Rocephin until culture returns. a lot of family concern revolving receiving medications and PT. Will revisit idea of NG tomorrow. 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 Discussed with Dr. Ro and agree with findings and plan as documented in the note. Any exceptions or clarifications are listed here: None Documented By: Jorge Mott no HPI or ROS obtainable from pt. d/w speech - poor volition to swallow - huge aspiration risk at current time; d/w PT - able to get her to sit with assistance but very weak and poor volition. d/w nursing as well. family present - initially son-in-law - was very hostile and accusatory in tones almost before we were even able to introduce ourselves asking about when PT would be working with her and when she would be getting her pills. EXTENSIVE discussion with son in law discussing current working dx (delirium due to dehydration + UTI, possibly with elements of parkinsons at play due to not being able to take her meds, likely with additional compounding delirogenic effects of hospitalization, possibly with small amount of effect of not eating well for days as well; outside concern on ?degree of underlying dementia due to parkinsons- but this doesn't seem as likely with his description of her baseline )-- and plan of treating overlying factors (UTI, dehydration) and treating parkinsons (due to the complicating factor that not getting parkinsons meds could make withdrawal/appearance of delirium worse and no IV equivalent available- may need to consider NGT for parkinsons meds if ability to take PO doesn't quickly improve), while having PT/OT/speech work with her as best she is possible. as he started to express understanding and lessen his hostile tones and posturing, pt's dtr then nearly stormed into room, son-in-law noted that we'd just had ~30mins discussion and he'd fill her in, but wondered if she had any questions, to which she responded, with angry and almost accusatory tones, "when is therapy going to be working with her?!?" when i started to try to re-explain the whole clinical picture to her she demanded we speak in the [place], when i tried to start to explain that disorientation can be part of what perpetuates delirium in hospital, and our having discussions about what's going on can help to at least provide a little clarity on setting and maybe mitigate the confusing/delirogenic effects of being inpatient --- before i could finish explaining even this, dtr stormed out of room, angrily paced halls for a few seconds, then came back in and demanded i speak with her in the hallway. as i tried to apologize for accidentally doing something that offended her, she began to berate me for not being sensitive to her mother's needs and again demanding that therapy be started. as i tried to explain what we were seeing clinically to help her understand the clinical picture (trying to discuss the case as personally as possible, and trying to avoid overtly clinical language), she interrupted me and said, "she's not a patient, she's john sink." and continued with VERY hostile tones and posturing. i answered some of her questions directly, and again tried to explain the clinical picture to her, while at the same time offering background on myself and my team, and how we approach patient care, and that we do look at her mother as a person, that we need to take care of her as a team approach, and that barriers and hostility from the daughter as we are trying to help the patient will actually make it far harder to take care of her mother. she started to calm some and allowed me to explain clinical situation, working diagnoses, and plans, but had a vitriolic reaction when i tried to explain deliriums. she later explained that her mom takes on what's going on around her and internalizes it, and she's worried that her mom is giving up and quitting. i explained then that this will be something we'll need to take into account, but with the UTI, dehydration , and potential issues with parkinsons since she's not been getting her meds, there are plenty of medical issues that can be making her acutely in this state. i explained goals of care (treat overlying medical causes, stabilize situation, have PT/OT/speech work with her, and then, when medically appropriate , that SNF likely would be needed for short term after hospitalization with goal of return to [facility] when she improves). after this second, extensive discussion, dtr did start to express some understanding of what we're seeing and trying to do to help her mother, still seemed skeptical and definitely not showing much of a level of trust, but at least was no longer overtly hostile. when asked what i could do to gain her trust, she did not really directly answer. vitals noted, mucous membranes sl dry, breathing unlabored no respiratory distress, no accessory muscle use, labs and imaging reviewed. a/p acute metabolic encephalopathy - probably driven by UTI + dehydration, likely additional factors being lack of parkinsons meds, lack of sufficient PO intake, and hospital setting provoking further delirium. ?any underlying parkinsons dementia but does not appear that way based on family reports; will review neurology notes as well UTI - continue current abx, pending final ID&S, no appearance of sepsis dehydration - from poor PO intake; only significant lab abnormality was quite high BUN/Cr ratio - which is improving. continue IVFs, continue following BMP daily parkinsons - will review neuro notes for additional information on baseline; because lack of meds could certainly induce worse bradykinesia, stiffness - making clinical picture appear more withdrawn, will need to get meds in her as soon as is safe - however - right now she is not at all safe to swallow in discussion w speech. w IV abx and IVFs, hopefully mentation will improve enough to allow for PO meds by tomorrow - if not then will have to give consideration to NGT to be able to give parkinsons meds. weakness - ongoing PT/OT dysphagia - probably from mental state - d/w speech will have to have ongoing eval as mentation improves acute malnutrition - from poor PO intake - as w meds, hopefully she'll awaken better and this would allow for better PO intake. if, however, NGT needed for parkinsons meds, would start enteral feeds at that time as well. anxiety/"internalizing" as per daughter - will want to resume zoloft as soon as feasible. continue to follow mentation closely. offer encouragement and support to pt and family. otherwise as above >1hr face to face (first ~30mins w son in law initially hostile then calming, followed by additional 30mins of dtr very hostile and slowly calming to more neutral tone) additional time in chart review, planning, d/w Dr Ro, etc. Continued [facility] stay due to: other Discharge planning: uncertain
[2016-06-30 14:49] VITALS: BP 171/106; PULSE 83; TEMP 36.9; O2SAT 100
[2016-06-30 15:05] VITALS: BP 158/96; PULSE 81
[2016-06-30] MEDS: ARTIFICIAL TEARS OP OINT 3.5 GM TUBE OPB SCH (20:56)
[2016-06-30] MEDS: MIRTAZAPINE TAB 15 MG TAB PO SCH (20:59)
[2016-06-30] MEDS: DOCUSATE SODIUM/SENNA 50/8.6MG TAB PO SCH (20:59)
[2016-06-30] MEDS: CEFTRIAXONE SOD INJ 2,000 MG in DEXTROSE 5% 50ML 50 ML IV SCH (23:04)
[2016-06-30 23:09] VITALS: BP_SYST 160; BP_SYST 167; BP_DIAS 112; BP_DIAS 98; PULSE 78; TEMP 36.5; O2SAT 98
[2016-07-01] MEDS: SODIUM CHLOR 0.45% + 20MEQ KCL 1,000 ML IV SCH ×3 (04:18→23:45)
[2016-07-01] MEDS: CARBIDOPA/LEVODOPA 50/200MG EXT REL TAB PO SCH ×6 (06:51→23:00)
[2016-07-01] MEDS: CARBIDOPA/LEVODOPA 25/100MG TAB PO SCH ×5 (06:51→19:00)
[2016-07-01 07:08] LABS: HEMATOCRIT 30.7 % (37-47); MEAN CELL VOLUME 92.7 fL (80-100); MEAN CORPUSCULAR HEMOGLOBIN 31.1 pg (25-34); MEAN CORPUSCULAR HGB CONC 33.6 g/dl (32-36); MEAN PLATELET VOLUME 11.2 fL (7.4-10.4); PLATELET COUNT 404 K/uL (130-400); RED BLOOD COUNT 3.31 M/uL (4.2-5.4); WHITE BLOOD COUNT 9.37 K/uL (4.8-10.8)
--- NOTE | 2016-07-01 07:16 | Clinical Documentation Query ---
CLINICAL DOCUMENTATION QUERY Dr. CURTIS, In your clinical opinion is this patient being managed for: ( ) Pressure ulcer of R medial sacrum, stage 2, and small deep tissue injury L medial buttocks, POA ( ) Other explanation of clinical findings (Please Explain) ( ) Unable to determine (Please Define) ( ) Need to Discuss ( ) Not Agree The medical record reflects the following clinical findings, treatment, and risk factors. Clinical Indicators: Noted consult for [facility] who has documented a stage II pressure ulcer R medial sacrum and small deep tissue injury L medial buttocks present on admission. Treatment: accumax mattress, cleanse with NSS and apply optifoam dressing q 3 days and prn Risk Factors: age, debility, parkinson's disease Please clarify and document your clinical opinion in the progress notes and discharge summary. Terms such as "probable", "suspected", "likely", "questionable", "possible", or "still to be ruled out" are acceptable. IF IN AGREEMENT, YOU MUST DOCUMENT ABOVE DIAGNOSTIC STATEMENT IN DAILY PROGRESS NOTES AND DISCHARGE SUMMARY. This document is not part of the patient's record. Thank You, Maryan Olmedo RN [phone]
[2016-07-01] MEDS: REQUIP XL - ORDER AWAITING ACTION SCH ×3 (07:34→23:45)
[2016-07-01] MEDS: ASPIRIN 81 MG ECTAB PO SCH (07:35)
[2016-07-01] MEDS: FERROUS GLUCONATE 324 MG TAB PO SCH (07:35)
[2016-07-01] MEDS: SERTRALINE HCL 50 MG TAB PO SCH (07:35)
[2016-07-01] MEDS: PANCREAZE (LIPASE 10,500U) CAP PO SCH ×3 (07:35→17:00)
[2016-07-01] MEDS: CYANOCOBALAMIN 500 MCG TAB (VIT B-12) PO SCH (07:35)
[2016-07-01] MEDS: CALCIUM 600MG + VIT D 400 IU TAB PO SCH (07:35)
[2016-07-01 07:40] VITALS: BP 161/98; PULSE 81; TEMP 36.5; O2SAT 98
[2016-07-01 07:42] LABS: BUN/CREATININE RATIO 31.1 (10-20); CALCIUM 9.3 mg/dl (8.5-10.1); CREATININE 0.61 mg/dl (0.60-1.20); MAGNESIUM 1.8 mg/dl (1.8-2.4); POTASSIUM 4.7 mmol/L (3.5-5.1)
[2016-07-01 07:43] LABS: PHOSPHORUS 2.4 mg/dl (2.5-4.9)
[2016-07-01] MEDS ORDERED: POTASSIUM PHOS 3 MMOL/1 ML INFUSION IV STA (07:58)
[2016-07-01] MEDS: ARTIFICIAL TEARS OP SOLN OPB SCH ×4 (08:12→20:52)
[2016-07-01] MEDS: SULFACETAMIDE SODIUM 10% OP SOLN 15 ML BTL OP SCH ×4 (08:12→20:51)
[2016-07-01] MEDS: HEPARIN SOD 5000 UNIT/0.5 ML CARP SQ SCH ×2 (08:17→20:55)
[2016-07-01] MEDS ORDERED: SODIUM PHOSPHATE INJ 21 MMOL in SODIUM CHLORIDE 0.9% 500ML 500 ML IV SCH (08:30)
[2016-07-01 10:44] VITALS: BP 168/102; PULSE 86
[2016-07-01 11:40] VITALS: BP 150/96; PULSE 86
--- NOTE | 2016-07-01 13:41 | Family Medicine Progress Note ---
Progress Note Date of Service Jul 01, 2016. Subjective Pt evaluation today including: conversation w/ family, chart review, lab review PO Intake: NPO Patient is more alert this morning, she opened her eyes to her name and when we asked her to lift her right arm she did attempt however was unable to fully lift Unable to complete ROS/ subjective history because of this Did talk to daughter about the patient and as patient's mentation is improving will continue to hold off on NG for now. She does have some concern about withdrawal and restarting medications and about like neurology involved. Medications Medications Administered Medications (Trade) Dose Ordered Sig/Laura Route Start Time Stop Time Status Last Admin Dose Admin Sodium Chloride 500 ml @ 999 mls/hr Q31M STAT IV 06/29/16 18:06 06/29/16 18:36 DC 06/29/16 18:40 999 MLS/HR Sodium Chloride (Nss 1000ml) 1,000 ml @ 999 mls/hr Q1H1M STAT IV 06/29/16 19:47 06/29/16 20:47 DC 06/29/16 19:47 999 MLS/HR Heparin Sodium (Porcine) 5000 unit 5,000 unit Q12 SQ 06/29/16 22:00 07/29/16 21:59 07/01/16 08:17 5,000 UNIT Ceftriaxone Sodium 2000 mg/ Dextrose 70 ml @ 100 mls/hr Q24H IV 06/29/16 22:00 07/09/16 21:59 06/30/16 23:04 100 MLS/HR Potassium Chloride/Sodium Chloride (06/08 Nss + 20meq KCl 1000ml) 1,000 ml @ 100 mls/hr Q10H IV 06/29/16 22:00 07/29/16 21:59 07/01/16 04:18 100 MLS/HR Artificial Tears (Lacri-Lube Oph Oint) 1 appln HS OPB 06/29/16 21:00 07/29/16 20:59 06/30/16 20:56 1 APPLN Artificial Tears (Artificial Tears) 1 drops BID OPB 06/29/16 21:00 07/29/16 20:59 07/01/16 08:12 1 DROPS Sulfacetamide Sodium 2 drops 2 drops QID OP 06/29/16 21:00 07/29/16 20:59 07/01/16 11:35 2 DROPS Sodium Phosphate/ Sodium Chloride (Sodium Phosphate Inj/Nss 500ml) 507 ml @ 88 mls/hr TODAY@0830 IV 07/01/16 08:30 07/01/16 14:16 07/01/16 09:10 88 MLS/HR Objective Vital Signs Date Time Temp Pulse Resp B/P Pulse Ox O2 Delivery O2 Flow Rate FiO2 07/01/16 11:40 86 150/96 07/01/16 10:44 86 168/102 07/01/16 08:00 Room Air 07/01/16 07:40 36.5 81 18 161/98 98 07/01/16 00:20 Room Air 06/30/16 23:09 36.5 78 24 167/112 98 Room Air 160/98 06/30/16 20:00 Room Air 06/30/16 15:47 Room Air 06/30/16 15:05 81 158/96 06/30/16 14:49 36.9 83 18 171/106 100 Physical Exam General Appearance: no apparent distress, + cachetic Eyes: normal inspection ENT: + pertinent finding (slightly dry mucus membranes) Neck: supple Respiratory/Chest: lungs clear, normal breath sounds, no respiratory distress, no accessory muscle use, + decreased breath sounds (bilat bases) Cardiovascular: regular rate, rhythm, no murmur Abdomen: normal bowel sounds, non tender, soft Extremities: normal inspection, no pedal edema, no calf tenderness, + pertinent finding (minimal active ROM ) Neurologic/Psychiatric: alert (however not responding to questions, she is trying but does not seem like she has the energy to) Skin: normal color, warm/dry, no rash Lymphatic: no adenopathy Laboratory Results Results Past 24 Hours Test 07/01/16 06:15 07/01/16 09:00 Range/Units White Blood Count 9.37 4.8-10.8 K/uL Red Blood Count 3.31 4.2-5.4 M/uL Hemoglobin 10.3 12.0-16.0 g/dL Hematocrit 30.7 37-47 % Mean Corpuscular Volume 92.7 80-100 fL Mean Corpuscular Hemoglobin 31.1 25-34 pg Mean Corpuscular Hemoglobin Concent 33.6 32-36 g/dl RDW Standard Deviation 46.2 36.4-46.3 fL RDW Coefficient of Variation 13.8 11.5-14.5 % Platelet Count 404 130-400 K/uL Mean Platelet Volume 11.2 7.4-10.4 fL Sodium Level 140 136-145 mmol/L Potassium Level 4.7 3.5-5.1 mmol/L Chloride Level 107 98-107 mmol/L Carbon Dioxide Level 16 21-32 mmol/L Anion Gap 17.0 3-11 mmol/L Blood Urea Nitrogen 19 7-18 mg/dl Creatinine 0.61 0.60-1.20 mg/dl Est Creatinine Clear Calc Drug Dose 41.8 ml/min Estimated GFR () 96.5 Estimated GFR (Non- 83.2 BUN/Creatinine Ratio 31.1 10-20 Random Glucose 53 70-99 mg/dl Calcium Level 9.3 8.5-10.1 mg/dl Phosphorus Level 2.4 2.5-4.9 mg/dl Magnesium Level 1.8 1.8-2.4 mg/dl Lactic Acid Level 0.9 0.4-2.0 mmol/L Assessment and Plan 85 yo F with a h/o parkinsonism that is currently being treated for metabolic encephalopathy for dehydration/ UTI. She is being empirically treated with Rocephin until culture returns. a lot of family concern revolving receiving medications and PT. Will revisit idea of NG tomorrow. Metabolic encephalopathy secondary to dehydration UTI - Empiric coverage with Rocephin - pansensitive E Coli so will continue this regimen - 2 L NSS in the ED and currently on 1/2 NSS KCL @ 100 - continue to monitor CBC and BMP Parkinsonism - Medication held at this time - consider administering sinemet tomorrow via NG - continue to hold Buspar Zoloft and Remeron unless AMS improves - PT OT ordered - Speech therapy - reevaluation tomorrow prior to NG tube placement consideration - Spoke with Dr Albrecht - Garrett to restart medications at original doses once NG placed/ tolerating PO Conjunctivitis - continue treatment Pressure Ulcer of right medialsacrum, stage 2, small deep tissue injury left medical buttocks POA - wound care consult- appreciate input 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 Discussed with Dr. Mtz and agree with findings and plan as documented in the note. Any exceptions or clarifications are listed here: None Documented By: Jorge Mott looking more awake! makes eye contact, tries to voice some, but can't really speak intelligibly. Dr mtz spoke w dtr extensively, updated on progress. dtr requested neuro consult. no meaningful hPI or ROS obtainable today, but trying to interact more vitals noted, nad, opens eyes, somewhat slow to react but tries to interact, mucous membranes less dry. skin no pallor. breathing unlabored with no distress and no accessory muscle use metabolic encephalopathy due to UTI, dehydration, compounded by not being able to take parkinson's meds (and maybe some by a mild element of malnutrition due to poor PO intake for weeks) - seems improved. continue IVFs, continue rocephin (e coli sensitive). seems slightly improved. hopefully can take PO intake for meds by tomorrow (will ask speech to re-eval) -- if not, given slow movements, etc - may need to place NGT to treat parkinsons to be able to affect further improvement (hopefully won't have to, though) otherwise as above Continued [facility] stay due to: other Discharge planning: uncertain
[2016-07-01] MEDS ORDERED: METOPROLOL TARTRATE 1 MG/ML VIAL IV PRN (13:45)
[2016-07-01] MEDS ORDERED: HydrALAZINE HCL 20 MG/ML VIAL IV. PRN (15:00)
[2016-07-01 16:07] VITALS: BP 150/83; PULSE 87; TEMP 36.9; O2SAT 97
[2016-07-01 19:58] VITALS: O2SAT 97
[2016-07-01] MEDS: DOCUSATE SODIUM/SENNA 50/8.6MG TAB PO SCH (20:52)
[2016-07-01] MEDS: ARTIFICIAL TEARS OP OINT 3.5 GM TUBE OPB SCH (20:52)
[2016-07-01] MEDS: MIRTAZAPINE TAB 15 MG TAB PO SCH (20:52)
[2016-07-01] MEDS: CEFTRIAXONE SOD INJ 2,000 MG in DEXTROSE 5% 50ML 50 ML IV SCH (22:12)
[2016-07-01 23:10] VITALS: BP 148/94; PULSE 84; TEMP 36.5; O2SAT 99
[2016-07-02] VITALS: O2SAT 97
[2016-07-02] MEDS: CARBIDOPA/LEVODOPA 50/200MG EXT REL TAB PO SCH ×3 (05:03→13:00)
[2016-07-02] MEDS: CARBIDOPA/LEVODOPA 25/100MG TAB PO SCH ×2 (05:03→09:27)
[2016-07-02 06:45] LABS: HEMATOCRIT 29.1 % (37-47); MEAN CELL VOLUME 92.1 fL (80-100); MEAN CORPUSCULAR HEMOGLOBIN 31.3 pg (25-34); PLATELET COUNT 377 K/uL (130-400); RED BLOOD COUNT 3.16 M/uL (4.2-5.4)
[2016-07-02 07:13] LABS: CALCIUM 8.9 mg/dl (8.5-10.1); CREATININE 0.56 mg/dl (0.60-1.20); PHOSPHORUS 2.5 mg/dl (2.5-4.9); POTASSIUM 4.6 mmol/L (3.5-5.1)
[2016-07-02 07:33] VITALS: BP 163/96; PULSE 78; TEMP 36.3; O2SAT 94
[2016-07-02] MEDS: SULFACETAMIDE SODIUM 10% OP SOLN 15 ML BTL OP SCH ×4 (07:37→20:46)
[2016-07-02] MEDS: ARTIFICIAL TEARS OP SOLN OPB SCH ×4 (07:37→20:45)
[2016-07-02] MEDS: HEPARIN SOD 5000 UNIT/0.5 ML CARP SQ SCH ×2 (07:44→20:54)
[2016-07-02] MEDS: SERTRALINE HCL 50 MG TAB PO SCH (07:46)
[2016-07-02] MEDS: CYANOCOBALAMIN 500 MCG TAB (VIT B-12) PO SCH (07:46)
[2016-07-02] MEDS: CALCIUM 600MG + VIT D 400 IU TAB PO SCH (07:46)
[2016-07-02] MEDS: REQUIP XL - ORDER AWAITING ACTION SCH ×3 (07:46→23:32)
[2016-07-02] MEDS: ASPIRIN 81 MG ECTAB PO SCH (07:46)
[2016-07-02] MEDS: FERROUS GLUCONATE 324 MG TAB PO SCH (07:46)
[2016-07-02] MEDS: PANCREAZE (LIPASE 10,500U) CAP PO SCH ×3 (07:46→16:39)
[2016-07-02] MEDS: SODIUM CHLOR 0.45% + 20MEQ KCL 1,000 ML IV SCH ×2 (09:40→20:44)
--- NOTE | 2016-07-02 12:01 | DIAGNOSTIC IMAGING REPORT ---
KUB HISTORY: core safe placement COMPARISON: None. FINDINGS: The bowel gas pattern is unremarkable. There are no dilated loops of small bowel to suggest an obstruction. No renal calculi. No ureteral calculi. No pneumoperitoneum or pneumatosis. Suspect a trace right pleural effusion. There is a feeding tube curled with in the left midabdomen. This likely resides within the distal body of the stomach. There is a right total hip arthroplasty. Of note, the patient is slightly rotated on this study. Moderate stool within the distal colon and rectum. IMPRESSION: The feeding tube projects over the body of the stomach. Electronically signed by: Benjy Reyes M.D. 07/02/2016 12:00 PM Dictated Date/Time: 07/02/2016 11:58 AM
[2016-07-02] MEDS ORDERED: CEFTRIAXONE SOD INJ 1,000 MG in DEXTROSE 5% 50ML 50 ML IV SCH (12:45)
[2016-07-02] MEDS ORDERED: ALUMINUM/MAGNESIUM/SIMETH (MAALOX MAX) 30 ML UDC NG PRN (13:00)
[2016-07-02] MEDS ORDERED: ACETAMINOPHEN SOLN 650MG/20.3 ML UDC NG PRN (13:00)
[2016-07-02] MEDS: CEFTRIAXONE SOD INJ 1,000 MG in DEXTROSE 5% 50ML 50 ML IV SCH (13:22)
[2016-07-02] MEDS: CARBIDOPA/LEVODOPA 25/100MG TAB NG SCH ×3 (13:24→20:49)
[2016-07-02 14:51] VITALS: BP 162/104; PULSE 88; TEMP 36.6; O2SAT 100
[2016-07-02 15:15] VITALS: Ht 144.8 cm; Wt 38.8 kg
--- NOTE | 2016-07-02 15:30 | Family Medicine Progress Note ---
Progress Note Date of Service Jul 02, 2016. Subjective Pt evaluation today including: conversation w/ patient, conversation w/ family , physical exam, chart review Patient has been trying to communicate however still no speech, she does squeeze hand for yes denies pain via this communication method unable to complete ROS Medications Medications Administered Medications (Trade) Dose Ordered Sig/Laura Route Start Time Stop Time Status Last Admin Dose Admin Sodium Chloride 500 ml @ 999 mls/hr Q31M STAT IV 06/29/16 18:06 06/29/16 18:36 DC 06/29/16 18:40 999 MLS/HR Sodium Chloride (Nss 1000ml) 1,000 ml @ 999 mls/hr Q1H1M STAT IV 06/29/16 19:47 06/29/16 20:47 DC 06/29/16 19:47 999 MLS/HR Heparin Sodium (Porcine) 5000 unit 5,000 unit Q12 SQ 06/29/16 22:00 07/29/16 21:59 07/02/16 07:44 5,000 UNIT Ceftriaxone Sodium 2000 mg/ Dextrose 70 ml @ 100 mls/hr Q24H IV 06/29/16 22:00 07/02/16 12:41 DC 07/01/16 22:12 100 MLS/HR Potassium Chloride/Sodium Chloride (1/2 Nss + 20meq KCl 1000ml) 1,000 ml @ 100 mls/hr Q10H IV 06/29/16 22:00 07/29/16 21:59 07/02/16 09:40 100 MLS/HR Artificial Tears (Lacri-Lube Oph Oint) 1 appln HS OPB 06/29/16 21:00 07/29/16 20:59 07/01/16 20:52 1 APPLN Artificial Tears (Artificial Tears) 1 drops BID OPB 06/29/16 21:00 07/29/16 20:59 07/02/16 07:37 1 DROPS Sulfacetamide Sodium 2 drops 2 drops QID OP 06/29/16 21:00 07/29/16 20:59 07/02/16 13:23 2 DROPS Sodium Phosphate 21 mmol/Sodium Chloride 507 ml @ 88 mls/hr TODAY@0830 IV 07/01/16 08:30 07/01/16 14:16 DC 07/01/16 09:10 88 MLS/HR Ceftriaxone Sodium/Dextrose (Rocephin Inj/D5 50ml) 60 ml @ 100 mls/hr Q24H IV 07/02/16 13:00 07/12/16 12:59 07/02/16 13:22 100 MLS/HR Buspirone HCl (Buspar Tab) 10 mg TID NG 07/02/16 14:00 08/01/16 13:59 07/02/16 13:23 10 MG Carbidopa/Levodopa (Sinemet 25/ 100MG Tab) 0.5 tab 0700,1000,1300,1600,1900 NG 07/02/16 16:00 08/01/16 15:59 07/02/16 13:24 0.5 TAB Objective Vital Signs Date Time Temp Pulse Resp B/P Pulse Ox O2 Delivery O2 Flow Rate FiO2 07/02/16 14:51 36.6 88 18 162/104 100 07/02/16 08:00 Room Air 07/02/16 07:33 36.3 78 20 163/96 94 07/02/16 00:00 97 Room Air 07/01/16 23:10 36.5 84 14 148/94 99 Room Air 07/01/16 19:58 97 Room Air 07/01/16 16:07 36.9 87 20 150/83 97 Room Air Physical Exam General Appearance: WD/WN, no apparent distress, + cachetic Eyes: normal inspection ENT: normal ENT inspection Neck: supple Respiratory/Chest: lungs clear, normal breath sounds, no respiratory distress, no accessory muscle use Cardiovascular: regular rate, rhythm, no murmur Abdomen: normal bowel sounds, non tender, soft Extremities: non-tender, normal inspection, no pedal edema Neurologic/Psychiatric: no motor/sensory deficits, alert, oriented x 3 Skin: normal color, no rash Lymphatic: no adenopathy Laboratory Results Results Past 24 Hours Test 07/02/16 06:00 Range/Units White Blood Count 8.40 4.8-10.8 K/uL Red Blood Count 3.16 4.2-5.4 M/uL Hemoglobin 9.9 12.0-16.0 g/dL Hematocrit 29.1 37-47 % Mean Corpuscular Volume 92.1 80-100 fL Mean Corpuscular Hemoglobin 31.3 25-34 pg Mean Corpuscular Hemoglobin Concent 34.0 32-36 g/dl RDW Standard Deviation 45.4 36.4-46.3 fL RDW Coefficient of Variation 13.6 11.5-14.5 % Platelet Count 377 130-400 K/uL Mean Platelet Volume 11.0 7.4-10.4 fL Sodium Level 138 136-145 mmol/L Potassium Level 4.6 3.5-5.1 mmol/L Chloride Level 105 98-107 mmol/L Carbon Dioxide Level 17 21-32 mmol/L Anion Gap 16.0 3-11 mmol/L Blood Urea Nitrogen 16 7-18 mg/dl Creatinine 0.56 0.60-1.20 mg/dl Est Creatinine Clear Calc Drug Dose 45.6 ml/min Estimated GFR () 99.2 Estimated GFR (Non- 85.6 BUN/Creatinine Ratio 28.0 10-20 Random Glucose 67 70-99 mg/dl Calcium Level 8.9 8.5-10.1 mg/dl Phosphorus Level 2.5 2.5-4.9 mg/dl Assessment and Plan 85 yo F with a h/o parkinsonism that is currently being treated for metabolic encephalopathy for dehydration/ UTI. She is being empirically treated with Rocephin until culture returns. a lot of family concern revolving receiving medications and PT. We allowed her 48 hours to help recuperate and potentially be a candidate to start feeding. A second swallow study was done and she is still unable to swallow so we discussed the use of coresafe with the patient's daughter to administer medications and nutrition. Patient's daughter was agreeable with this and it was placed on 07/02. Metabolic encephalopathy secondary to dehydration UTI - Empiric coverage with Rocephin - pansensitive E Coli so will continue this regimen - 2 L NSS in the ED and currently on 12 NSS KCL @ 100 - continue to monitor CBC and BMP - Coresafe was placed 07/02 - will initiate trickle feeds and administer medications via this method Parkinsonism - Restart medications via Coresafe - PT OT ordered - Speech therapy - aspiration risk - Spoke with Dr Ambrocio Tucker to restart medications at original doses once NG placed/ tolerating PO Conjunctivitis - continue treatment Pressure Ulcer of right medial sacrum, stage 2, small deep tissue injury left medical buttocks POA - wound care consult- appreciate input 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 Discussed with Dr. Ro and agree with findings and plan as documented in the note. Any exceptions or clarifications are listed here: None Documented By: Jorge Mott more alert - makes eye contact, loosely nods, and tries to interact. still failing speech, however. dtr contacted and after approval NGT inserted. later called to see due to gurgling sounds w respiration audible from bedside. pt unable to voice HPI or ROS but appearing in no distress. otherwise as above vitals noted, initially nad, less dry mucous membranes and less sunken eyes than before, cardiac reg no r/m/g and lungs cta b/l no r/r/w good effort. later exam still nad, breathign unlabored, upper airway gurgling sounds as well as R slightly > L rhonchi diffusely, still no accessory muscles no respiratory distress, 97-98% on RA. stat CXR chested, no infiltrate, no pulmonary edema a/p metabolic encephalopathy - from UTI and dehydration - compounded by not being able to get parkinsons meds and possibly some from poor PO intake/acute calorie malnutrition - improving. due to "bottleneck in improvement" related to parkinsons meds, had to place NGT to get meds in as her withdrawn state easily would be perpetuated by lack of meds/worsening parkinsons. overall showing slow but steady improvement, however. abnormal breath sounds -fortunatley after further review no overt aspiration pneumonia no CHF. probably a small degree of reflux of tube feeds. already on rocephin, without overt aspiration into lungs will not add anaerobic coverage. continue to follow closely - hold tube feeds for tonight resume in AM and have pt even more upright when giving. dysphagia - as above, continue daily swallowing assessment at bedside since she' s showing slow improvement dtr updated extensively. Continued [facility] stay due to: other Discharge planning: uncertain
[2016-07-02] MEDS: FIBERSOURCE HN 1000ML BAG NG SCH ×2 (16:39)
[2016-07-02 17:25] VITALS: O2SAT 100
--- NOTE | 2016-07-02 18:32 | DIAGNOSTIC IMAGING REPORT ---
CHEST ONE VIEW PORTABLE CLINICAL HISTORY: Abnormal physical examination with rhonchi difficulty breathing. COMPARISON STUDY: 06/29/2016 FINDINGS: The cardiac and mediastinal contours remain stable. There is been interval placement of a nasogastric tube. There is no lobar consolidation. There is a 25 mm opacity within the right midlung zone. This is of questionable significance as this was not visualized on the prior examination. When stable, a PA and lateral study is recommended in follow-up. There are no pleural effusions. There is no overt failure.[ IMPRESSION: 1. Interval placement of a nasogastric tube 2. No evidence of failure 3. No evidence of lobar consolidation 4. 25 mm right midlung zone opacity. As this was not visualized on this study performed earlier in the week, this finding is of uncertain significance. When stable, a PA and lateral chest in the department is recommended. Electronically signed by: Shahbaz Hastings M.D. 07/02/2016 6:31 PM Dictated Date/Time: 07/02/2016 6:25 PM
[2016-07-02] MEDS: SENNA 17.6 MG/10 ML UDP NG SCH (20:45)
[2016-07-02] MEDS: DOCUSATE SODIUM 100 MG/10 ML UDC NG SCH (20:45)
[2016-07-02] MEDS: ARTIFICIAL TEARS OP OINT 3.5 GM TUBE OPB SCH (20:47)
[2016-07-02] MEDS: MIRTAZAPINE TAB 15 MG TAB PO SCH (20:50)
[2016-07-02] MEDS ORDERED: NURSING VERBAL MED ORDER ONE (22:45)
[2016-07-03 00:21] VITALS: BP 130/88; PULSE 84; TEMP 36.3; O2SAT 96
[2016-07-03] MEDS: SODIUM CHLOR 0.45% + 20MEQ KCL 1,000 ML IV SCH ×2 (06:02→18:10)
[2016-07-03] MEDS: CARBIDOPA/LEVODOPA 25/100MG TAB NG SCH ×5 (06:30→20:18)
[2016-07-03 07:29] VITALS: BP 129/83; PULSE 83; TEMP 36.5; O2SAT 98
[2016-07-03] MEDS ORDERED: SERTRALINE HCL 50 MG TAB NG SCH (08:00)
[2016-07-03 08:12] LABS: HEMATOCRIT 29.5 % (37-47); MEAN CELL VOLUME 90.8 fL (80-100); MEAN CORPUSCULAR HEMOGLOBIN 31.4 pg (25-34); MEAN CORPUSCULAR HGB CONC 34.6 g/dl (32-36); MEAN PLATELET VOLUME 11.1 fL (7.4-10.4); PLATELET COUNT 374 K/uL (130-400); RED BLOOD COUNT 3.25 M/uL (4.2-5.4)
[2016-07-03] MEDS: ASPIRIN 81 MG CHEW NG SCH (08:27)
[2016-07-03] MEDS: CYANOCOBALAMIN 500 MCG TAB (VIT B-12) PO SCH (08:28)
[2016-07-03] MEDS: SULFACETAMIDE SODIUM 10% OP SOLN 15 ML BTL OP SCH ×4 (08:29→20:20)
[2016-07-03] MEDS: FERROUS SULFATE 325 MG/7.4 ML UDP NG SCH (08:29)
[2016-07-03] MEDS: PANCREAZE (LIPASE 10,500U) CAP PO SCH ×3 (08:29→16:33)
[2016-07-03] MEDS: ARTIFICIAL TEARS OP SOLN OPB SCH ×4 (08:30→20:21)
[2016-07-03] MEDS: PROSOURCE NOCARB 30ML/PKT NG SCH (08:31)
[2016-07-03] MEDS: CALCIUM 600MG + VIT D 400 IU TAB NG SCH (08:31)
[2016-07-03] MEDS: REQUIP XL - ORDER AWAITING ACTION SCH ×2 (08:31→16:00)
[2016-07-03 08:32] LABS: BUN/CREATININE RATIO 23.4 (10-20); CALCIUM 9.3 mg/dl (8.5-10.1); CREATININE 0.56 mg/dl (0.60-1.20); POTASSIUM 4.6 mmol/L (3.5-5.1)
--- NOTE | 2016-07-03 08:51 | Family Medicine Progress Note ---
Progress Note Date of Service Jul 03, 2016. Subjective Pt evaluation today including: conversation w/ patient, conversation w/ family , physical exam, chart review, lab review Pain: 0/10 PO Intake: coresafe Voiding: no voiding problems Patient is much more alert!!! Limited conversation so unable to complete a full ROS but denies pain. Did have some coarse breath sounds last night and some concern was from aspiration but CXR was clear Will resume trickle feeds this morning at half the rate Medications Medications Administered Medications (Trade) Dose Ordered Sig/Laura Route Start Time Stop Time Status Last Admin Dose Admin Sodium Chloride 500 ml @ 999 mls/hr Q31M STAT IV 06/29/16 18:06 06/29/16 18:36 DC 06/29/16 18:40 999 MLS/HR Sodium Chloride (Nss 1000ml) 1,000 ml @ 999 mls/hr Q1H1M STAT IV 06/29/16 19:47 06/29/16 20:47 DC 06/29/16 19:47 999 MLS/HR Heparin Sodium (Porcine) 5000 unit 5,000 unit Q12 SQ 06/29/16 22:00 07/29/16 21:59 07/02/16 20:54 5,000 UNIT Ceftriaxone Sodium 2000 mg/ Dextrose 70 ml @ 100 mls/hr Q24H IV 06/29/16 22:00 07/02/16 12:41 DC 07/01/16 22:12 100 MLS/HR Potassium Chloride/Sodium Chloride (06/08 Nss + 20meq KCl 1000ml) 1,000 ml @ 100 mls/hr Q10H IV 06/29/16 22:00 07/29/16 21:59 07/03/16 06:02 100 MLS/HR Artificial Tears (Lacri-Lube Oph Oint) 1 appln HS OPB 06/29/16 21:00 07/29/16 20:59 07/02/16 20:47 1 APPLN Artificial Tears (Artificial Tears) 1 drops BID OPB 06/29/16 21:00 07/29/16 20:59 07/03/16 08:30 1 DROPS Cyanocobalamin (Vitamin B-12 Tab) 1,000 mcg DAILY PO 06/30/16 08:00 07/30/16 08:59 07/03/16 08:28 1,000 MCG Amylase/Lipase/ Protease (Pancreaze (Lipase 10,500U) Cap) 1 cap TIDM PO 06/30/16 08:00 07/30/16 07:59 07/03/16 08:29 1 CAP Sulfacetamide Sodium (Sulfacetamide Sod 10% Oph Soln) 2 drops QID OP 06/29/16 21:00 07/29/16 20:59 07/03/16 08:29 2 DROPS Mirtazapine 15 mg 15 mg HS PO 06/30/16 21:00 07/30/16 20:59 07/02/16 20:50 15 MG Sodium Phosphate 21 mmol/Sodium Chloride 507 ml @ 88 mls/hr TODAY@0830 IV 07/01/16 08:30 07/01/16 14:16 DC 07/01/16 09:10 88 MLS/HR Ceftriaxone Sodium/Dextrose (Rocephin Inj/D5 50ml) 60 ml @ 100 mls/hr Q24H IV 07/02/16 13:00 07/12/16 12:59 07/02/16 13:22 100 MLS/HR Aspirin (Aspirin Chew) 81 mg DAILY NG 07/03/16 08:00 08/02/16 07:59 07/03/16 08:27 81 MG Buspirone HCl (Buspar Tab) 10 mg TID NG 07/02/16 14:00 08/01/16 13:59 07/03/16 08:27 10 MG Calcium/Vitamin D (Caltrate Plus Tab) 1 tab DAILY NG 07/03/16 08:00 08/02/16 07:59 07/03/16 08:31 1 TAB Carbidopa/Levodopa (Sinemet 25/ 100MG Tab) 0.5 tab 0700,1000,1300,1600,1900 NG 07/02/16 16:00 07/02/16 18:14 DC 07/02/16 15:33 0.5 TAB Ferrous Sulfate (Feosol Elix) 325 mg DAILY NG 07/03/16 08:00 08/02/16 07:59 07/03/16 08:29 325 MG Docusate Sodium (coLACE SYRUP) 100 mg HS NG 07/02/16 21:00 08/01/16 20:59 07/02/16 20:45 100 MG Senna (Senokot Syrup) 17.6 mg HS NG 07/02/16 21:00 08/01/16 20:59 07/02/16 20:45 17.6 MG Enteral Nutritional Formula (Fibersource HN) 1,000 ml UD NG 07/02/16 15:30 08/01/16 15:29 Future Hold 07/02/16 16:39 1,000 ML Enteral Nutritional Formula (Prosource No Carb) 30 ml DAILY NG 07/03/16 08:00 08/02/16 07:59 07/03/16 08:31 30 ML Carbidopa/Levodopa (Sinemet 25/ 100MG Tab) 1 tab 0700,1000,1300,1600,1900 NG 07/02/16 19:00 08/01/16 18:59 07/03/16 06:30 1 TAB Objective Vital Signs Date Time Temp Pulse Resp B/P Pulse Ox O2 Delivery O2 Flow Rate FiO2 07/03/16 07:29 36.5 83 18 129/83 98 Room Air 07/03/16 00:21 36.3 84 18 130/88 96 Room Air 07/03/16 00:05 Room Air 07/02/16 17:25 100 Room Air 07/02/16 14:51 36.6 88 18 162/104 100 Physical Exam General Appearance: WD/WN, no apparent distress, + cachetic Eyes: normal inspection ENT: normal ENT inspection Neck: supple Respiratory/Chest: lungs clear, normal breath sounds, no respiratory distress, no accessory muscle use Cardiovascular: regular rate, rhythm Abdomen: normal bowel sounds, soft Extremities: non-tender, normal inspection, no pedal edema, no calf tenderness , + pertinent finding (able to lift right arm much more ) Neurologic/Psychiatric: alert Skin: normal color, no rash Lymphatic: no adenopathy Laboratory Results Results Past 24 Hours Test 07/03/16 07:55 Range/Units White Blood Count 7.30 4.8-10.8 K/uL Red Blood Count 3.25 4.2-5.4 M/uL Hemoglobin 10.2 12.0-16.0 g/dL Hematocrit 29.5 37-47 % Mean Corpuscular Volume 90.8 80-100 fL Mean Corpuscular Hemoglobin 31.4 25-34 pg Mean Corpuscular Hemoglobin Concent 34.6 32-36 g/dl RDW Standard Deviation 43.9 36.4-46.3 fL RDW Coefficient of Variation 13.4 11.5-14.5 % Platelet Count 374 130-400 K/uL Mean Platelet Volume 11.1 7.4-10.4 fL Sodium Level 136 136-145 mmol/L Potassium Level 4.6 3.5-5.1 mmol/L Chloride Level 102 98-107 mmol/L Carbon Dioxide Level 20 21-32 mmol/L Anion Gap 14.0 3-11 mmol/L Blood Urea Nitrogen 13 7-18 mg/dl Creatinine 0.56 0.60-1.20 mg/dl Est Creatinine Clear Calc Drug Dose 45.6 ml/min Estimated GFR () 99.2 Estimated GFR (Non- 85.6 BUN/Creatinine Ratio 23.4 10-20 Random Glucose 81 70-99 mg/dl Calcium Level 9.3 8.5-10.1 mg/dl Assessment and Plan 85 yo F with a h/o parkinsonism that is currently being treated for metabolic encephalopathy for dehydration/ UTI. She is being empirically treated with Rocephin until culture returns. a lot of family concern revolving receiving medications and PT. We allowed her 48 hours to help recuperate and potentially be a candidate to start feeding. A second swallow study was done and she is still unable to swallow so we discussed the use of coresafe with the patient's daughter to administer medications and nutrition. Patient's daughter was agreeable with this and it was placed on 07/02. Overnight she had significant improvement in her alertness and ability to converse although limited. Metabolic encephalopathy secondary to dehydration UTI - Empiric coverage with Rocephin - pansensitive E Coli so will continue this regimen - 2 L NSS in the ED and currently on 06/08 NSS KCL @ 100 - continue to monitor CBC and BMP - Coresafe was placed 07/02 - trickle feeds and medications admin Parkinsonism - Restart medications via Coresafe - PT OT ordered - Speech therapy - aspiration risk - Spoke with Dr Albrecht - Ok to restart medications at original doses once NG placed/ tolerating PO Conjunctivitis - continue treatment Pressure Ulcer of right medial sacrum, stage 2, small deep tissue injury left medical buttocks POA - wound care consult- appreciate input 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 Discussed with Dr. Ro and agree with findings and plan as documented in the note. Any exceptions or clarifications are listed here: None Documented By: Jorge Mott more alert. when seen w R2, she noted that actually pt was more sleepy when we saw together than when she saw individually, but still more awake than yesterday , eye contact and loosely voices some words. no pain. no distress vitals noted, mucous membranes moist, eyes less sunken, lungs cta b/l no rrw good effort cardio reg no rmg, skin no pallor a/p acute metabolic encephalopathy due to UTI/dehydration likely also effects from missing parkinsons meds and then also probably lesser effects from acute calorie malnutrition from poor PO intake - improving dysphagia - still not alert/strong enough to swallow - ongoing NGT to get parkinsons meds, tube feeds in; ongoing speech reassessment and dc tube once she is able to swallow parkinsons - continue sinemet via NGT DVT proph - heparin SQ dw pharmacy and OK to open pancrease and put in NGT so may continue that as well Continued [facility] stay due to: other Discharge planning: uncertain
[2016-07-03] MEDS ORDERED: NURSING VERBAL MED ORDER ONE (09:15)
[2016-07-03 09:45] VITALS: O2SAT 98
[2016-07-03] MEDS: FIBERSOURCE HN 1000ML BAG NG SCH ×2 (09:49)
[2016-07-03] MEDS: HEPARIN SOD 5000 UNIT/0.5 ML CARP SQ SCH ×2 (10:28→20:22)
[2016-07-03] MEDS: SERTRALINE NG SCH (10:31)
[2016-07-03 11:56] VITALS: BP 143/94; PULSE 84; TEMP 36.4; O2SAT 96
[2016-07-03] MEDS: CEFTRIAXONE SOD INJ 1,000 MG in DEXTROSE 5% 50ML 50 ML IV SCH (12:44)
[2016-07-03 19:05] VITALS: O2SAT 96
[2016-07-03] MEDS: DOCUSATE SODIUM 100 MG/10 ML UDC NG SCH (20:19)
[2016-07-03] MEDS: MIRTAZAPINE TAB 15 MG TAB PO SCH (20:20)
[2016-07-03] MEDS: SENNA 17.6 MG/10 ML UDP NG SCH (20:20)
[2016-07-03] MEDS: ARTIFICIAL TEARS OP OINT 3.5 GM TUBE OPB SCH (20:21)
[2016-07-03 23:54] VITALS: BP 133/80; PULSE 91; TEMP 36.6; O2SAT 99
[2016-07-04] MEDS: REQUIP XL - ORDER AWAITING ACTION SCH ×3 (00:47→17:01)
[2016-07-04] MEDS: CARBIDOPA/LEVODOPA 25/100MG TAB NG SCH ×5 (06:07→19:05)
[2016-07-04 07:39] VITALS: BP 123/81; PULSE 90; TEMP 36.6; O2SAT 98
[2016-07-04] MEDS: ASPIRIN 81 MG CHEW NG SCH (07:42)
[2016-07-04] MEDS: CYANOCOBALAMIN 500 MCG TAB (VIT B-12) PO SCH (07:42)
[2016-07-04] MEDS: SODIUM CHLOR 0.45% + 20MEQ KCL 1,000 ML IV SCH ×2 (07:42→21:04)
[2016-07-04] MEDS: SULFACETAMIDE SODIUM 10% OP SOLN 15 ML BTL OP SCH ×4 (07:43→21:05)
[2016-07-04] MEDS: PROSOURCE NOCARB 30ML/PKT NG SCH (07:43)
[2016-07-04] MEDS: CALCIUM 600MG + VIT D 400 IU TAB NG SCH (07:43)
[2016-07-04] MEDS: PANCREAZE (LIPASE 10,500U) CAP PO SCH ×3 (07:43→17:03)
[2016-07-04] MEDS: FERROUS SULFATE 325 MG/7.4 ML UDP NG SCH (07:44)
[2016-07-04] MEDS: ARTIFICIAL TEARS OP SOLN OPB SCH ×4 (07:44→21:05)
[2016-07-04] MEDS: SERTRALINE NG SCH (07:45)
[2016-07-04 08:00] VITALS: O2SAT 98
--- NOTE | 2016-07-04 10:08 | Progress Note ---
Subjective Date of Service: Jul 04, 2016. Subjective Pt evaluation today including: conversation w/ patient, conversation w/ family , physical exam, chart review, lab review, review of inpatient medication list having a better day - still not really able to voice HPI or ROS but off and on talking more - dtr agrees more alert. visited twice. d/w psych liaison nurse drew dima noted -able to swallow some now! asked nursing to follow for reliability in this d/w dtr extensively - she's still not convinced pt ever had delirium - feels it' s all been psychogenic withdrawal mechanism Problem List Medical Problems: (1) Altered mental status Status: Acute (2) Facial laceration Status: Acute (3) Weakness Status: Acute Review of Systems see above, not meaningfully obtainable from pt, but does appear improving and dtr notes appears improving as well Objective Vital Signs Date Time Temp Pulse Resp B/P Pulse Ox O2 Delivery O2 Flow Rate FiO2 07/04/16 08:00 98 Room Air 07/04/16 07:39 36.6 90 18 123/81 98 Room Air 07/04/16 00:00 Room Air 07/03/16 23:54 36.6 91 18 133/80 99 Room Air 07/03/16 19:05 96 Room Air 07/03/16 11:56 36.4 84 143/94 96 Room Air Physical Exam General Appearance: no apparent distress Eyes: EOMI ENT: hearing grossly normal (responds to commands well, appears to hear and understand well) Neck: trachea midline Respiratory/Chest: lungs clear, normal breath sounds, no respiratory distress, no accessory muscle use Cardiovascular: regular rate, rhythm Abdomen: non tender, soft Extremities: normal range of motion, no pedal edema, no calf tenderness Neurologic/Psychiatric: tube cutter operator II-XII nml as tested, alert, + pertinent finding ( masked face, slow response, but does follow even multistep commands, although doesn't really verbalize much today) Skin: normal color, warm/dry Laboratory Results Last 24 Hours Test 07/03/16 12:45 07/04/16 08:58 07/04/16 09:22 Phosphorus Level 1.7 mg/dl Assessment and Plan withdrawn mentation -ddx being metabolic encephalopathy vs psychogenic vs elements of both. tried to explain to dtr at length. while she accepts an understanding of what a delirium is, she notes that from the beginning she has not really believed that much (if any) of her mother's mentation is due to delirium, and that most (if not all) is due to a psychogenic withdrawal (willfully keeping herself withdrawn because she gets sick, scared, withdraws -- notes that she's done similar at home from time to time) -i explained to her that certainly this could be a part of the picture, but that medically certainly signs point to (at least from the beginning) delirium being a major factor - but that her mental status is more likely to be a "pie chart" (with elements of delirium/parkinsons, and psychogenic) than a "bar graph " (where all of her mentation would be accounted for by psychogenic). she disagrees. offered to have one of my medical partners assume her care for fresh opinion as despite ongoing daily and frequent communication with her via myself and (during the week) dr mtz, there still seems to be a significant lack of trust and rapport (she notes she does not want this - feels we are working hard on her mother's case and is pleased with care thus far, and doesn' t want to start over with explaining her mom's background). will f/u after speech has seen (late addendum - did, she is swallowing better), after she's been with dtr for a while since dtr may be able to stimulate responsiveness more (late addendum - dtr notes she's doing better with interaction). will also order EEG to eval for disorganized pattern (more c/w delirium/ encephalopathy) vs more organized (would plead more towards psychogenic) and ask for psychiatry evaluation (doriss lisandro); low threshold for neuro consult as well. UTI - finish out 7 days ceftriaxone, appears improved. treat as complicated UTI due to encephalopathy as complication dehydration - -improved. continue fluids only until her PO intake is able to suffice. have reduced rate acute metabolic encephalopathy due to UTI/dehydration likely also effects from missing parkinsons meds and then also probably lesser effects from acute calorie malnutrition from poor PO intake - improving dysphagia - improving! hopefully by tonight/tomorrow can d/c NGT parkinsons - continue sinemet, requip via NGT depression - continue meds via NGT, psych input as above otherwise DVT proph - heparin SQ Pressure Ulcer of right medial sacrum, stage 2, small deep tissue injury left medical buttocks POA - wound care consult- ongoing wound treatment Metabolism disorder - continue pancrease improving
[2016-07-04 10:24] LABS: BUN/CREATININE RATIO 26.2 (10-20); CREATININE 0.6 mg/dl (0.60-1.20); POTASSIUM 4.2 mmol/L (3.5-5.1)
[2016-07-04] MEDS: HEPARIN SOD 5000 UNIT/0.5 ML CARP SQ SCH ×2 (10:37→21:17)
[2016-07-04] MEDS: CEFTRIAXONE SOD INJ 1,000 MG in DEXTROSE 5% 50ML 50 ML IV SCH (12:17)
--- NOTE | 2016-07-04 15:01 | Psychiatric Consultation ---
Psychiatric Consultation Date of Service: Jul 04, 2016. ID: 85 year old female CC: Assess delirium versus psychogenic HPI: Patient admitted 5 days ago from [facility] with UTI after nursing staff at [facility] observed foul smelling urine and mental status changes. Patient has been withdrawn and minimally verbal since admission. Daughter has expressed concern to staff about possibility of mental health source contributing to her her mental status. Patient is followed for outpatient psychiatric care by Dr. Tello Mosley at [facility] and last seen 03/18/16 and anxiety and depression stable on regimen of Remeron, Zoloft and Buspirone. Was tolerating medications well. Follow up appointment scheduled for 6 months. Past Psych History: No previous psychiatric hospitalizations. Previous psychiatric treatment with Dr. Norton in [place] as well as with a psychiatrist in [place]. Previous medications include her current medications and Klonopin in the past. Medical History: Parkinson's Disease. Urinary tract infection. Labs: On 07/03 WBC 7.3 and Hgb 10.2. On 07/04 Creatinine 0.6 and BUN 16 and Calcium 9.0. Allergies: Cillins Mental Status Examination: 85 year old female laying in her hospital bed dressed in hospital gown. No verbal responses to questions asked but would open eyes in response to saying her name. Appeared lethargic. 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 Patient has been stable on combination of Remeron, Zoloft and Buspirone. Plan: Due to patient's unresponsiveness nurse liason will meet with patient's daughter who is scheduled to return in a few hours per nursing staff and will obtain collateral history including time course for symptom development. Will continue current psychiatric medication regimen for now but will reassess with collateral history. Concur with plan for EEG help assess delirium versus psychogenic causes. Ordered TSH, freeT4 and Vitamin B12 levels to be drawn to help rule out other reversible causes of mental status changes. Thank you for this consult request
[2016-07-04 15:57] VITALS: BP 106/71; PULSE 86; TEMP 37; O2SAT 98
[2016-07-04] MEDS: MIRTAZAPINE TAB 15 MG TAB PO SCH (21:06)
[2016-07-04] MEDS: SENNA 17.6 MG/10 ML UDP NG SCH (21:06)
[2016-07-04] MEDS: DOCUSATE SODIUM 100 MG/10 ML UDC NG SCH (21:06)
[2016-07-04] MEDS: ARTIFICIAL TEARS OP OINT 3.5 GM TUBE OPB SCH (21:07)
[2016-07-04 23:44] VITALS: BP 123/77; PULSE 91; TEMP 36.4; O2SAT 98
[2016-07-05] MEDS: FIBERSOURCE HN 1000ML BAG NG SCH ×2 (06:25)
[2016-07-05] MEDS: CARBIDOPA/LEVODOPA 25/100MG TAB NG SCH ×5 (06:25→19:15)
[2016-07-05 06:38] LABS: HEMATOCRIT 28.2 % (37-47); MEAN CELL VOLUME 90.7 fL (80-100); MEAN CORPUSCULAR HEMOGLOBIN 31.8 pg (25-34); MEAN CORPUSCULAR HGB CONC 35.1 g/dl (32-36); MEAN PLATELET VOLUME 11.4 fL (7.4-10.4); PLATELET COUNT 395 K/uL (130-400); RED BLOOD COUNT 3.11 M/uL (4.2-5.4); WHITE BLOOD COUNT 6.44 K/uL (4.8-10.8)
[2016-07-05 07:18] LABS: THYROID STIMULATING HORMONE 1.94 uIu/ml (0.300-4.500)
[2016-07-05] MEDS: SERTRALINE NG SCH (07:31)
[2016-07-05] MEDS: PANCREAZE (LIPASE 10,500U) CAP PO SCH ×3 (07:32→16:58)
[2016-07-05] MEDS: CYANOCOBALAMIN 500 MCG TAB (VIT B-12) PO SCH (07:33)
[2016-07-05] MEDS: ROPINIROLE HCL 1 MG TAB NG SCH (07:33)
[2016-07-05] MEDS: PROSOURCE NOCARB 30ML/PKT NG SCH (07:33)
[2016-07-05] MEDS: CALCIUM 600MG + VIT D 400 IU TAB NG SCH (07:33)
[2016-07-05] MEDS: FERROUS SULFATE 325 MG/7.4 ML UDP NG SCH (07:33)
[2016-07-05] MEDS: ARTIFICIAL TEARS OP SOLN OPB SCH ×4 (07:33→19:41)
[2016-07-05 07:34] VITALS: BP 114/67; PULSE 93; TEMP 36.8; O2SAT 97
[2016-07-05] MEDS: ASPIRIN 81 MG CHEW NG SCH (07:34)
[2016-07-05] MEDS: REQUIP XL - ORDER AWAITING ACTION SCH ×3 (07:34→16:00)
[2016-07-05] MEDS: SULFACETAMIDE SODIUM 10% OP SOLN 15 ML BTL OP SCH ×4 (07:34→19:41)
[2016-07-05] MEDS: HEPARIN SOD 5000 UNIT/0.5 ML CARP SQ SCH ×2 (07:51→19:46)
[2016-07-05] MEDS: SODIUM CHLOR 0.45% + 20MEQ KCL 1,000 ML IV SCH (10:08)
[2016-07-05] MEDS: CEFTRIAXONE SOD INJ 1,000 MG in DEXTROSE 5% 50ML 50 ML IV SCH (12:18)
--- NOTE | 2016-07-05 14:48 | Progress Note ---
Subjective Date of Service: Jul 05, 2016. Subjective Pt evaluation today including: conversation w/ patient, conversation w/ family , physical exam, chart review, lab review, review of inpatient medication list very little HPI or ROS from pt to me - later nursing notes she is up and conversing some. for me she nods and mouths replies a little. denies pain denies complaints. dtr present, son in law present - they feel she is showing progress and i updated them on her care. later nursing notes she did well again on swallowing. NGT dcd Problem List Medical Problems: (1) Altered mental status Status: Acute (2) Facial laceration Status: Acute (3) Weakness Status: Acute Review of Systems see above, no acute problems as best can be ascertained, but ROS otherwise negative except for as above Objective Vital Signs Date Time Temp Pulse Resp B/P Pulse Ox O2 Delivery O2 Flow Rate FiO2 07/05/16 08:00 Room Air 07/05/16 07:34 36.8 93 16 114/67 97 Room Air 07/05/16 00:00 Room Air 07/04/16 23:44 36.4 91 18 123/77 98 Room Air 07/04/16 16:30 Room Air 07/04/16 15:57 37.0 86 19 106/71 98 Room Air Physical Exam General Appearance: no apparent distress Eyes: EOMI ENT: hearing grossly normal (responds to normal voice) Respiratory/Chest: lungs clear, normal breath sounds, no respiratory distress, no accessory muscle use Cardiovascular: regular rate, rhythm Abdomen: non tender, soft Extremities: normal inspection, no pedal edema, no calf tenderness Neurologic/Psychiatric: + pertinent finding (masked face, slow response. L hand chronically tight, no other focal neuro deficits, no new changes) Skin: normal color, warm/dry Laboratory Results Last 24 Hours Test 07/05/16 06:02 White Blood Count 6.44 K/uL Red Blood Count 3.11 M/uL Hemoglobin 9.9 g/dL Hematocrit 28.2 % Mean Corpuscular Volume 90.7 fL Mean Corpuscular Hemoglobin 31.8 pg Mean Corpuscular Hemoglobin Concent 35.1 g/dl RDW Standard Deviation 44.2 fL RDW Coefficient of Variation 13.6 % Platelet Count 395 K/uL Mean Platelet Volume 11.4 fL Vitamin B12 Level 1979 pg/mL Thyroid Stimulating Hormone (TSH) 1.940 uIu/ml Free Thyroxine 1.40 ng/dl Assessment and Plan withdrawn mentation -ddx being metabolic encephalopathy vs psychogenic vs elements of both. improving. NGT out. follow closely. since she's improved enough to where NGT is out, as long as swallowing/aspiration doesn't become a worsening issue again , can hold off on EEG. ongoing speech eval and treat, anticipate video swallow tomorrow UTI - finished 7 days ceftriaxone, appears improved. treated as complicated UTI due to encephalopathy as complication dehydration - -improved. continue fluids only until her PO intake is able to suffice. acute metabolic encephalopathy due to UTI/dehydration likely also effects from missing parkinsons meds and then also probably lesser effects from acute calorie malnutrition from poor PO intake - improving dysphagia - improving - see above, NGT out, cautious diet, video swallow anticipated for tomorrow parkinsons - can resume home meds at home dosing depression - home meds, psych input as above otherwise DVT proph - heparin SQ Pressure Ulcer of right medial sacrum, stage 2, small deep tissue injury left medical buttocks POA - wound care consult- ongoing wound treatment Metabolism disorder - continue pancrease improving dispo - anticipate likely need for SNF w goal of return to personal care. ongoing PT/OT/speech eval and treat to help determine this.
[2016-07-05 15:51] VITALS: BP 137/86; PULSE 106; TEMP 36.8; O2SAT 91
[2016-07-05] MEDS ORDERED: NURSING VERBAL MED ORDER ONE (18:30)
[2016-07-05] MEDS: DOCUSATE SODIUM 100 MG/10 ML UDC NG SCH (19:46)
[2016-07-05] MEDS: SENNA 17.6 MG/10 ML UDP NG SCH (19:46)
[2016-07-05 20:00] VITALS: O2SAT 91
[2016-07-05] MEDS: MIRTAZAPINE TAB 15 MG TAB PO SCH (20:05)
[2016-07-05] MEDS: ARTIFICIAL TEARS OP OINT 3.5 GM TUBE OPB SCH (21:14)
[2016-07-06] MEDS: SODIUM CHLOR 0.45% + 20MEQ KCL 1,000 ML IV SCH ×2 (00:29→13:06)
[2016-07-06] MEDS: CARBIDOPA/LEVODOPA 50/200MG EXT REL TAB PO SCH ×3 (00:47→19:36)
[2016-07-06 01:26] VITALS: BP 132/79; PULSE 76; TEMP 36.6; O2SAT 96
[2016-07-06 02:21] VITALS: O2SAT 91
[2016-07-06] MEDS: REQUIP XL - ORDER AWAITING ACTION SCH ×3 (06:44→16:59)
[2016-07-06] MEDS: CARBIDOPA/LEVODOPA 25/100MG TAB NG SCH ×6 (06:44→19:32)
[2016-07-06 07:50] VITALS: BP 112/76; PULSE 72; TEMP 37; O2SAT 98
[2016-07-06] MEDS: PANCREAZE (LIPASE 10,500U) CAP PO SCH ×3 (08:00→17:08)
[2016-07-06] MEDS: ROPINIROLE HCL 1 MG TAB NG SCH (08:00)
[2016-07-06] MEDS: SERTRALINE NG SCH (08:00)
[2016-07-06] MEDS: PROSOURCE NOCARB 30ML/PKT NG SCH (08:00)
[2016-07-06] MEDS: FERROUS SULFATE 325 MG/7.4 ML UDP NG SCH (08:00)
[2016-07-06] MEDS: ASPIRIN 81 MG CHEW NG SCH (08:00)
[2016-07-06] MEDS: CALCIUM 600MG + VIT D 400 IU TAB NG SCH (08:00)
[2016-07-06] MEDS: CYANOCOBALAMIN 500 MCG TAB (VIT B-12) PO SCH (08:00)
[2016-07-06] MEDS: SULFACETAMIDE SODIUM 10% OP SOLN 15 ML BTL OP SCH ×4 (08:37→19:35)
[2016-07-06] MEDS: ARTIFICIAL TEARS OP SOLN OPB SCH ×4 (08:38→19:35)
[2016-07-06] MEDS: HEPARIN SOD 5000 UNIT/0.5 ML CARP SQ SCH ×2 (08:41→21:12)
--- NOTE | 2016-07-06 09:50 | Psychiatric Progress Notes ---
Psychiatric Progress Note Date of Service Jul 06, 2016. Notes ID: Patient reviewed with liaison nurse. Initial consult by Dr. Wallace reviewed. Reviewed most recent progress note by Dr. Mosley (03/22). Case discussed with Dr. Mosley. 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 Her associated mood symptoms/anxiety have been well controlled on combo of Zoloft, Remeron and Buspar. Her daughter notified him that she had missed meds for a few days until NG tube placed and restarted. ROS: patient is unable to complete MSE: mute, cogwheeling, masked faces. limited to no eye contact. not combative with care. Imp: end stage parkinson's Plan: current symptoms seem primarily driven by parkinson's, no psych med changes recommended by outpatient psychiatrist who as cared for patient since 2012.
[2016-07-06 14:13] VITALS: BP 164/83; PULSE 81; TEMP 36.9; O2SAT 98
--- NOTE | 2016-07-06 16:36 | Family Medicine Progress Note ---
Progress Note Date of Service Jul 06, 2016. Subjective Patient was minimally responsive this morning Opens eyes with verbal stimuli. Additional Comments: unable to obtain Objective Physical Exam General Appearance: + pertinent finding (minimally responsive) Respiratory/Chest: lungs clear, normal breath sounds, no respiratory distress Cardiovascular: regular rate, rhythm, no edema Abdomen: normal bowel sounds, non tender, soft Neurologic/Psychiatric: + depressed affect Assessment and Plan 85 yo F with a h/o end stage parkinsonism presented with altered mentation secondary to UTI/dehydration. This has resolved with treatment and she is back to her baseline as per daughter. We met the daughter this evening and Mrs. Cruz was more responsive, awake and alert, eating dinner. The daughter was concerned about her Sinemet Dosing being inaccurate. We double checked with Dr. Albrecht's last note from may 2016, and we adjusted the dosing as per her last Med rec. We advised to the daughter, that if this is her baseline, she is clinically doing well. She is just not as responsive when her daughter is not around. She will need continued encouragement in order to be up to take meds 5x daily as per her dosing. Video swallow was not done due to her lack of alertness today. Speech recommendations noted. Metabolic encephalopathy secondary to UTI- resolved - Currently on NSS/ KCL End stage Parkinsonism - Meds adjusted Sinemet 25/100 0.5 tab 5x daily sinemet 50/200 0.5 tab 5x daily + 1 tab at night - PT/OT Dysphagia: - likely due to Parkinsons - aspiration precautions thin/pureed diet - no further eval - SPeech Depression: Continue Buspar, Mirtazapine Conjunctivitis - continue treatment Pressure Ulcer of right medial sacrum, stage 2 - wound care following Metabolism disorder - Pancrease will be held for now DVT prophylaxis Heparin Code: DNR Dispo: To SNF, continue PT/OT History Resident Physician Supervision Note: I was present with Dr. Lynn during the history and exam. I discussed the case with the resident and agree with the findings and plan as documented in the note. Any exceptions or clarifications are listed here Pt seen and examined at bedside. Initially, open eyes to voice but did not respond to nor follow commands, would not answer questions and was nonverbal. When re-evaluated in presence of daughter, was interactive, alert and would respond appropriately to conversation and humor, though still nonverbal. Reports no pain, nausea, lightheadedness. General Appearance: no apparent distress, cachetic Eye Exam: bilateral eye EOMI, bilateral eye PERRL Respiratory: chest non-tender, lungs clear, normal breath sounds, no respiratory distress Cardiovascular: normal peripheral pulses, regular rate, rhythm, no edema, no murmur Gastrointestinal: normal bowel sounds, non tender, soft, no organomegaly Assessment/Plan 85 y/o male h/o end-stage Parkinson's, depression p/w metabolic encephalopathy, worsened parkinson's, dehydration w/ DIONI End-stage Parkinson's - re-evaluate outpatient medication regimen w/ 0.5 tab of both doses of sinemet 5/day and 1qHS Depression - psychiatric input appreciated, will continue present psych regimen UTI - completed course of abx Dehydration - improved, encourage POI and continue IVF Acute metabolic encephalopathy - improving, especially with daughter present Dysphagia - was uncooperative w/ S/S but will do puree diet for now w/ aspiration precautions Pressure ulcer (stg 2 R med sacrum) - wound care aware d/w PT/OT and S/S regarding recommended supports in light of waxing/waning mental status. Would recommend supports for most waned status to work toward recovery.
[2016-07-06] MEDS ORDERED: CARBIDOPA/LEVODOPA 50/200MG EXT REL TAB PO SCH (21:00)
[2016-07-06] MEDS: ARTIFICIAL TEARS OP OINT 3.5 GM TUBE OPB SCH (21:08)
[2016-07-06] MEDS: MIRTAZAPINE TAB 15 MG TAB PO SCH (21:08)
[2016-07-06] MEDS: DOCUSATE SODIUM 100 MG/10 ML UDC NG SCH (21:09)
[2016-07-06] MEDS: SENNA 17.6 MG/10 ML UDP NG SCH (21:09)
[2016-07-07 00:13] VITALS: BP 113/70; PULSE 86; TEMP 36.6; O2SAT 96
[2016-07-07] MEDS: CARBIDOPA/LEVODOPA 50/200MG EXT REL TAB PO SCH ×4 (02:10→14:44)
[2016-07-07] MEDS: SODIUM CHLOR 0.45% + 20MEQ KCL 1,000 ML IV SCH (02:13)
[2016-07-07 07:13] LABS: BUN/CREATININE RATIO 18.7 (10-20); CALCIUM 8.5 mg/dl (8.5-10.1); CREATININE 0.61 mg/dl (0.60-1.20); POTASSIUM 4.5 mmol/L (3.5-5.1)
[2016-07-07] MEDS: ASPIRIN 81 MG CHEW NG SCH (07:42)
[2016-07-07] MEDS: CARBIDOPA/LEVODOPA 25/100MG TAB NG SCH ×4 (07:43→16:30)
[2016-07-07] MEDS: CALCIUM 600MG + VIT D 400 IU TAB NG SCH (07:44)
[2016-07-07] MEDS: ROPINIROLE HCL 1 MG TAB NG SCH (07:45)
[2016-07-07] MEDS: PANCREAZE (LIPASE 10,500U) CAP PO SCH ×2 (07:45→12:20)
[2016-07-07] MEDS: PROSOURCE NOCARB 30ML/PKT NG SCH (07:47)
[2016-07-07] MEDS: FERROUS SULFATE 325 MG/7.4 ML UDP NG SCH (07:47)
[2016-07-07] MEDS: ARTIFICIAL TEARS OP SOLN OPB SCH ×2 (07:48)
[2016-07-07] MEDS: SULFACETAMIDE SODIUM 10% OP SOLN 15 ML BTL OP SCH ×2 (07:48→12:36)
[2016-07-07] MEDS: CYANOCOBALAMIN 500 MCG TAB (VIT B-12) PO SCH (07:49)
[2016-07-07] MEDS: REQUIP XL - ORDER AWAITING ACTION SCH ×2 (08:00)
[2016-07-07] MEDS: SERTRALINE NG SCH (08:26)
[2016-07-07 08:39] VITALS: BP 151/95; PULSE 71; O2SAT 99
[2016-07-07] MEDS: HEPARIN SOD 5000 UNIT/0.5 ML CARP SQ SCH (08:53)
[2016-07-07 09:19] VITALS: TEMP 36.4
--- NOTE | 2016-07-07 14:55 | DIAGNOSTIC IMAGING REPORT ---
VIDEO SWALLOW HISTORY: Aspiration. TECHNIQUE: Video fluoroscopic evaluation of swallowing was performed in the AP and lateral projections by the speech pathology staff. The patient is fed thin liquid barium, nectar thick liquid, and pudding. FLUOROSCOPY TIME: 3.6 minutes. COMPARISON STUDY: None. FINDINGS: With swallowing thin liquid barium, there was silent aspiration. When swallowing nectar thick liquid there was penetration but no definite evidence for aspiration. The patient was unable to swallow pudding. The patient was not administered a cracker. IMPRESSION: 1. Aspiration of thin liquids. 2. Please see the speech pathologist report for detailed findings and recommendations. Electronically signed by: Shahbaz Hastings M.D. 07/07/2016 2:54 PM Dictated Date/Time: 07/07/2016 2:41 PM
--- NOTE | 2016-07-07 15:44 | Discharge Instructions ---
Discharge Instructions Admission Reason for Admission: Dehydration,Urinary Tract Infection Discharge Discharge Diagnosis / Problem: altered mental status, parkinsons Discharge Goals Goal(s): Decrease discomfort, Learn about illness, Diagnostic testing, Prevent Disease Progression Activity Recommendations Activity Level: Assistance Required Therapies: Physical Therapy, Occupational Therapy, Speech Therapy Lifting Limitations: gradually increase as tolerated Exercise/Sports Limitations: gradually increase as tolerated Shower/Bathe: no limitations . Additional Information Patient informed of condition: Yes Advance Directives: Yes DNR: Yes Level of Care: Acute Rehab Communicable Disease: No Prognosis: Improving Instructions / Follow-Up Instructions / Follow-Up Please continue her Sinemet at the appropriate dosing and times. Patient is at risk of aspirating. Speech recommendations are Pureed and Honey thick. Encourage fluid intake. Please monitor her sacral pressure ulcer and have appropriate wound care. Continue all other medications unless otherwise specified by her specialists. She will need follow up with her PCP and Neurology upon discharge. Current Hospital Diet Patient's current hospital diet: Regular Diet Discharge Diet Recommended Diet: Regular Diet Diet Texture: Pureed (blended smooth) Liquid Consistency: Honey Thick Pending Studies Studies pending at discharge: no Physician Orders On Transfer POLST Discussion: without POLST completion Medical Emergencies . Who to Call and When: Medical Emergencies: If at any time you feel your situation is an emergency, please call 911 immediately. . Non-Emergent Contact Non-Emergency issues call your: Primary Care Provider, Neurologist . . "Provider Documentation" section prepared by Damaris Munson. Core Measure Problem Core Measures: None
[2016-07-07 15:55] VITALS: BP 117/67; PULSE 90; TEMP 36.5; O2SAT 94
[2016-07-07 16:10] VITALS: BP 117/67; PULSE 90; TEMP 36.5; O2SAT 94
--- NOTE | 2016-07-07 19:11 | Discharge Summary ---
Discharge Summary Admission Date: Jun 29, 2016 at 20:37 Discharge Date: Jul 07, 2016 Discharge Disposition: Rehab Principal Diagnosis: Metabolic encephalopathy, UTI/ Dehydration Problems/Secondary Diagnoses: Pressure Ulcer,Sacral Parkinsonism Procedures: Head CT: IMPRESSION: 1. Senescent changes as above with no hemorrhage, mass effect, or evidence of acute territorial ischemia by CT criteria. 2. Left maxillary sinus disease as above. VIDEO SWALLOW HISTORY: Aspiration. TECHNIQUE: Video fluoroscopic evaluation of swallowing was performed in the AP and lateral projections by the speech pathology staff. The patient is fed thin liquid barium, nectar thick liquid, and pudding. FLUOROSCOPY TIME: 3.6 minutes. COMPARISON STUDY: None. FINDINGS: With swallowing thin liquid barium, there was silent aspiration. When swallowing nectar thick liquid there was penetration but no definite evidence for aspiration. The patient was unable to swallow pudding. The patient was not administered a cracker. IMPRESSION: 1. Aspiration of thin liquids. 2. Please see the speech pathologist report for detailed findings and recommendations. : SPEECH SUMMARY/RECOMMENDATIONS: This patient presents with moderate-severe oral-pharyngeal dysphagia. It is likely that the patients swallowing is varied throughout the day as well. The following is recommended: 1.Pureed diet and HONEY thick liquids 2.Aspiration precautions, NO straws. Stringent oral care. This includes cleaning the mouth prior to oral intake in the morning, after meals, and before going to bed at night. Mouth care q shift as well to minimize oral bacteria that can be aspirated in saliva. 3.Safe swallow strategies: Small bites, small sips. Alternate solids and liquids. Will need to be fed and require verbal encouragement to swallow. Slow rate, discontinue if difficulty noted. Only feed when alert and able to participate. 4. Would benefit from continued speech therapy upon discharge to acute rehab for carryover of diet and strategies. May benefit from a repeat from a repeat video swallow study should her overall status improve as appropriate. (Damaris Lynn MD) Discharge Exam 85 yo F with a h/o end stage parkinsonism presented with Metabolic Encephalopathy secondary to UTI/dehydration. This resolved with antibiotics and supportive therapy and she was back to her baseline prior to discharge. However , her baseline does involve some waxing and waning levels of mentation/ alertness but for the most part she is responsive and cooperative with simple tasks. There were significant concerns about dysphagia, given her Parkinson's and a coresafe was placed temporarily. This was removed a few days later when patients mentation improved and she was tolerating PO intake. A VFSS was eventually done and confirmed silent aspiration. Her diet was adjusted to pureed /honey thick. It was decided that she would benefit from acute rehab to regain better strength prior to going back to [facility]. Arrangements were made for the patient to be transferred to [facility]. Prior to discharge, we had a brief conversation with her daughter about goals of care and the daughter was certain that if her mother had other acute issues in the near future, she would like to proceed with treatment and possibly be brought back to the hospital, if necessary for further eval/treatment. The patient seemed to agree with this as well. No further discussions about palliative care as the daughter did not seem receptive to this idea. The patient is DNR. The patient will need to have all of her meds, specifically her Sinemet timed appropriately. Patient also has a Sacral stage 2 ulcer, that will need close follow up; wound was following here. All other acute/chronic issues were managed accordingly. Review of Systems: Constitutional: No chills, No fever ENT: + hearing loss, + trouble swallowing Respiratory: No cough, No dyspnea at rest, No dyspnea on exertion, No shortness of breath, No sputum Cardiovascular: No chest pain Abdomen: No nausea, No pain, No vomiting Genitourinary - Female: No dysuria, No urinary frequency, No urinary urgency Physical Exam: General Appearance: no apparent distress Eyes: PERRL, EOMI Neck: supple, no adenopathy Respiratory/Chest: lungs clear, normal breath sounds, no respiratory distress, no accessory muscle use Cardiovascular: regular rate, rhythm, no edema Abdomen / GI: normal bowel sounds, non tender, soft Extremities: no calf tenderness, no pedal edema Skin: + pertinent finding (Damaris Lynn MD) Hospital Course Total Time Spent: Greater than 30 minutes This includes examination of the patient, discharge planning, medication reconciliation, and communication with other providers. (Damaris Lynn MD) Total Time Spent: Less than 30 minutes (Braden Holt MD) Discharge Instructions Please refer to the electronic Patient Visit Report (Discharge Instructions) for additional information. (Damaris Lynn MD) Follow-Up PCP Neurology (Damaris Lynn MD) History Resident Physician Supervision Note: I was present with Dr. Lynn during the history and exam. I discussed the case with the resident and agree with the findings and plan as documented in the note. Any exceptions or clarifications are listed here. Pt seen and examined at bedside. Awake, sitting comfortably, drinking cocoa and eating raspberries without difficulty. Pleasant and talkative. Reports no KHAN, vision changes, nausea, CP/SOB, urinary complaints, abd pain, fatigue. Feels she is returning to baseline. (Braden Holt MD) General Appearance: no apparent distress, thin Respiratory: chest non-tender, lungs clear, normal breath sounds, no respiratory distress Cardiovascular: normal peripheral pulses, regular rate, rhythm, no edema, no murmur Gastrointestinal: normal bowel sounds, non tender, soft, no organomegaly (Braden Holt MD) Assessment/Plan 85 y/o male h/o end-stage Parkinson's, depression p/w metabolic encephalopathy, worsened parkinson's, dehydration w/ DIONI End-stage Parkinson's - on outpatient regimen, returning to baseline Depression - psychiatric input appreciated, will discharge on present psych regimen UTI - completed course of abx Dehydration - improved, encourage POI Acute metabolic encephalopathy - improving to baseline, especially with daughter present Dysphagia - VFSS completed, result pending Pressure ulcer (stg 2 R med sacrum) - wound care follow as outpatient (Braden Holt MD)
== END 2016-07-07 16:45 | DRG 689 ==
LOC: ENRESERVDT → ENRESERVTM → C.EDB 17:45 → C.4E 20:37
PROVIDERS: ADMIT Hospitalist; ATTEND Family Medicine
DX: N39.0 Urinary tract infection, site not specified (principal); G93.41 Metabolic encephalopathy; E46 Unspecified protein-calorie malnutrition; N17.9 Acute kidney failure, unspecified; R64 Cachexia; E24.9 Cushing's syndrome, unspecified; Z68.1 Body mass index [BMI] 19.9 or less, adult; K90.9 Intestinal malabsorption, unspecified; E89.6 Postprocedural adrenocortical (-medullary) hypofunction; E86.0 Dehydration; Z66 Do not resuscitate; I10 Essential (primary) hypertension; H10.9 Unspecified conjunctivitis; G25.81 Restless legs syndrome; F41.9 Anxiety disorder, unspecified; F32.9 Major depressive disorder, single episode, unspecified; E53.8 Deficiency of other specified B group vitamins; R13.10 Dysphagia, unspecified; B96.20 Unspecified Escherichia coli [E. coli] as the cause of diseases classified elsewhere; L89.152 Pressure ulcer of sacral region, stage 2; G20 Parkinson's disease; Z79.82 Long term (current) use of aspirin; Z79.899 Other long term (current) drug therapy; Z91.012 Allergy to eggs; Z88.0 Allergy status to penicillin; Z80.3 Family history of malignant neoplasm of breast; Z90.13 Acquired absence of bilateral breasts and nipples; Z96.649 Presence of unspecified artificial hip joint; Z90.81 Acquired absence of spleen

== ENCOUNTER 2017-02-06 08:08 | Emergency (ER) | payer OTHER, BC ==
[~2017-02-06] VITALS: Ht 144.8 cm; Wt 40.0 kg
[2017-02-06 08:16] VITALS: TEMP 36.4; Ht 144.8 cm; Wt 40.0 kg
--- NOTE | 2017-02-06 08:39 | EMERGENCY ROOM VISIT NOTE ---
History Report prepared by Harsha: Agusto Correa Under the Supervision of: Dr. Laurent Gautam M.D. First contact with patient: 08:20 Chief Complaint: LACERATION/CUT (SUT/DERMABOND) Stated Complaint: GASH NEAR CROWN OF HEAD FROM A FALL Nursing Triage Summary: pt arrives from [facility] with daughter pt fell around 0200 striking head on dresser, lac to top of head,denies LOC , History of Present Illness The patient is a 86 year old female who presents to the Emergency Room with complaints of laceration to the top of her head that occurred 6 hours ago. The patient has a history of Parkinson's and frequent falls and lives at [facility]. At this time, she fell and hit her head on her dresser. She did not lose consciousness, and she is not having any head pain, neck pain, or back pain. Source of History: patient, custodial notes Onset: 6 horus ago Position: head Symptom Intensity: mild Quality: other (Laceration) Timing: constant Associated Symptoms: No LOC, No headache, No neck pain, No back pain Review of Systems See HPI for pertinent positives & negatives. A total of 10 systems reviewed and were otherwise negative. Past Medical & Surgical Medical Problems: (1) Closed left clavicular fracture (2) Closed right tibial fracture (3) Cushings syndrome (4) Dehydration (5) Encounter for removal of michelle (6) Fall (7) Fall (8) Fall at home (9) Fracture of distal fibula (10) Head injury (11) Hypertension (12) Laceration (13) Osteoporosis Nos (14) Parkinson disease (15) Right Tibia and Fibula fractures (16) Right Tibia Fracture (17) Scalp laceration (18) Scalp laceration (19) Scalp laceration (20) Urinary tract infection Surgical Problems: (1) History of bilateral mastectomy (2) History of cataract surgery (3) History of hip replacement, 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 Social History Smoking Status: Never Smoker Smokeless Tobacco Use: No Alcohol Use: none Drug Use: none Marital Status: Housing Status: custodial Occupation Status: retired Current/Historical Medications Scheduled Artificial Tears (Artificial Tears), 1 DROPS OPB BID Artificial Tears Oph Oint (Lacri-Lube Sop Oph Oint), 1 APPLN OPB HS Aspirin (Aspirin 81), 81 MG PO DAILY Buspirone HCl (Buspirone HCl), 10 MG PO TID Calcium Carbonate-Cholecalcife (Oyster Shell Calcium + D), 1 TAB PO DAILY Carbidopa/Levodopa (Sinemet 25MG/100MG), 0.5 TAB PO 5XD Carbidopa/Levodopa (Sinemet Cr 50MG/200MG), 0.5 TAB PO 5XD Carbidopa/Levodopa (Sinemet Cr 50MG/200MG), 1 TAB PO HS Cholecalciferol (Vitamin D), 5,000 MG PO DAILY Cyanocobalamin (Vitamin B12), 1,000 MCG PO DAILY Docusate Sodium (Docusate Sodium), 100 MG PO HS Ferrous Gluconate (Ferrous Gluconate), 324 MG PO DAILY Mirtazapine (Remeron), 15 MG PO DAILY Multivitamin (Multivitamin), 1 TAB PO DAILY Pancrelipase (Lipase-Protease- (Zenpep), 10,000 UNITS PO TIDM Ropinirole Hydrochloride (Requip Xl), 1 TAB PO DAILY Sertraline Hcl (Zoloft), 7 ML PO DAILY Scheduled PRN Acetaminophen (Tylenol), 650 MG PO Q6 PRN for Pain or Fever Pancrelipase (Lipase-Protease- (Zenpep 24168 Unit), 2 CAP PO UD PRN for W/SNACKS Allergies Coded Allergies: Egg (Unverified Allergy, Unknown, UNKNOWN, 02/06/17) Penicillins (Verified Allergy, Unknown, RASH, 02/06/17) Spoke w daughter (Janine), who confirmed w Nishi that reaction was rash. Believes the reaction was to penicillin itself (vs. amoxicillin, etc). Physical Exam Vital Signs Date Time Temp Pulse Resp B/P (MAP) Pulse Ox O2 Delivery O2 Flow Rate FiO2 02/06/17 10:45 75 18 128/86 98 02/06/17 08:16 36.4 79 20 146/87 99 Room Air Medical Decision & Procedures ER Provider Diagnostic Interpretation: Radiology results and stated below per my review and radiologist interpretation: HEAD WITHOUT CONTRAST (CT) CLINICAL HISTORY: 86 years-old Female with Fall, laceration on back of head. Acute posterior injury status post fall TECHNIQUE: Multiple axial CT images of the head were obtained without contrast. A dose lowering technique was utilized adhering to the principles of ALARA. CT DOSE: 614.27 mGy.cm COMPARISON: CT head 06/29/2016 FINDINGS: No acute intracranial hemorrhage, midline shift, mass, large territorial ischemia or abnormal extra-axial collection. Moderate atrophy with background moderate to severe chronic microvascular ischemic changes. Vascular calcifications are seen at the level of the skull base. The calvarium is intact. [id number] mucosal disease in the left maxillary sinus with air-fluid level. Prior bilateral cataract repair. No large scalp hematoma. IMPRESSION: 1. No acute intracranial abnormality. Negative for hemorrhage or calvarial fracture. 2. Atrophy with background moderate to severe chronic microvascular ischemic changes. 3. Acute left maxillary sinus disease. The above report was generated using voice recognition software. It may contain grammatical, syntax or spelling errors. Electronically signed by: Tayo Mendez M.D. 02/06/2017 9:01 AM Dictated Date/Time: 02/06/2017 8:57 AM Medications Administered Medications (Trade) Dose Ordered Sig/Laura Route Start Time Stop Time Status Last Admin Dose Admin Acetaminophen (Tylenol Tab) 650 mg NOW STAT PO 02/06/17 10:02 02/06/17 10:03 DC 02/06/17 10:18 650 MG Bacitracin (Bacitracin Oint) 1 appln NOW ONCE EXT 02/06/17 10:15 02/06/17 10:16 DC 02/06/17 10:18 1 APPLN ED Course 0820: The patient was evaluated in room A3. A complete history and physical exam was performed. Medical Decision Differential: Intracranial Injury, Cervical Injury, Intrathoracic/Abdominal Injury, Neurologic Injuries, Fractures/Dislocations, Lacerations, Tetanus Status , amongst other pathologies entertained. Head Trauma GCS Score: 15 Medication Reconcilliation Current Medication List: was personally reviewed by me Blood Pressure Screening Patient's blood pressure: Elevated blood pressure Blood pressure disposition: Elevated BP felt to be situational Scribe Attestation The scribe's documentation has been prepared under my direction and personally reviewed by me in its entirety. I confirm that the note above accurately reflects all work, treatment, procedures, and medical decision making performed by me. Departure Information Dispostion Home / Self-Care Referrals No Doctor, Assigned (PCP) Forms HOME CARE DOCUMENTATION FORM, IMPORTANT VISIT INFORMATION Patient Instructions My [facility]
[2017-02-06] MEDS ORDERED: MULT-506 PO (08:45)
[2017-02-06] MEDS ORDERED: DOCU100C31 PO (08:45)
--- NOTE | 2017-02-06 09:02 | DIAGNOSTIC IMAGING REPORT ---
HEAD WITHOUT CONTRAST (CT) CLINICAL HISTORY: 86 years-old Female with Fall, laceration on back of head. Acute posterior injury status post fall TECHNIQUE: Multiple axial CT images of the head were obtained without contrast. A dose lowering technique was utilized adhering to the principles of ALARA. CT DOSE: 614.27 mGy.cm COMPARISON: CT head 06/29/2016 FINDINGS: No acute intracranial hemorrhage, midline shift, mass, large territorial ischemia or abnormal extra-axial collection. Moderate atrophy with background moderate to severe chronic microvascular ischemic changes. Vascular calcifications are seen at the level of the skull base. The calvarium is intact. [id number] mucosal disease in the left maxillary sinus with air-fluid level. Prior bilateral cataract repair. No large scalp hematoma. IMPRESSION: 1. No acute intracranial abnormality. Negative for hemorrhage or calvarial fracture. 2. Atrophy with background moderate to severe chronic microvascular ischemic changes. 3. Acute left maxillary sinus disease. The above report was generated using voice recognition software. It may contain grammatical, syntax or spelling errors. Electronically signed by: Tayo Mendez M.D. 02/06/2017 9:01 AM Dictated Date/Time: 02/06/2017 8:57 AM
[2017-02-06] MEDS ORDERED: LIDO/EPINEPHRINE/SOD BICARB 20 ML VIAL INFIL ONE ×2 (09:15→09:18)
[2017-02-06] MEDS ORDERED: XYLOCAINE 1%/SOD BICARB 20 ML VIAL INFIL ONE (09:16)
[2017-02-06] MEDS ORDERED: ACETAMINOPHEN 325 MG TAB PO STA (10:02)
--- NOTE | 2017-02-06 10:11 | EMERGENCY ROOM VISIT NOTE ---
History First contact with patient: 08:20 Chief Complaint: LACERATION/CUT (SUT/DERMABOND) Stated Complaint: GASH NEAR CROWN OF HEAD FROM A FALL Nursing Triage Summary: pt arrives from [facility] with daughter pt fell around 0200 striking head on dresser, lac to top of head,denies LOC , History of Present Illness The patient is a 86 year old female with Parkinson's disease who presents to the Emergency Room with complaints of scalp laceration after falling. She falls approximately x4/month due to her Parkinson's disease she loses balance and usually goes backwards. On this occasion she hit her dresser on the way down. It initially bled a lot but she stopped it with a bandage and pressure. She denies any pre-syncopal symptoms including dizziness, chest pain and shortness of breath. She did not lose consciousness. Since her fall she denies any change in mental status, vision/hearing/speech changes, new weakness or change in sensation. She has been up and walking after the fall. She denies any other injuries from the fall and does not have any back pain, hip pain or wrist pain. Review of Systems All other systems otherwise negative other than HPI Past Medical/Surgical History Medical Problems: (1) Closed left clavicular fracture (2) Closed right tibial fracture (3) Cushings syndrome (4) Dehydration (5) Encounter for removal of michelle (6) Fall (7) Fall (8) Fall at home (9) Fracture of distal fibula (10) Head injury (11) Hypertension (12) Laceration (13) Osteoporosis Nos (14) Parkinson disease (15) Right Tibia and Fibula fractures (16) Right Tibia Fracture (17) Scalp laceration (18) Scalp laceration (19) Scalp laceration (20) Urinary tract infection Surgical Problems: (1) History of bilateral mastectomy (2) History of cataract surgery (3) History of hip replacement, 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 Social History Smoking Status: Never Smoker Smokeless Tobacco Use: No Alcohol Use: none Drug Use: none Marital Status: Housing Status: group home Occupation Status: retired Current/Historical Medications Scheduled Artificial Tears (Artificial Tears), 1 DROPS OPB BID Artificial Tears Oph Oint (Lacri-Lube Sop Oph Oint), 1 APPLN OPB HS Aspirin (Aspirin 81), 81 MG PO DAILY Buspirone HCl (Buspirone HCl), 10 MG PO TID Calcium Carbonate-Cholecalcife (Oyster Shell Calcium + D), 1 TAB PO DAILY Carbidopa/Levodopa (Sinemet 25MG/100MG), 0.5 TAB PO 5XD Carbidopa/Levodopa (Sinemet Cr 50MG/200MG), 0.5 TAB PO 5XD Carbidopa/Levodopa (Sinemet Cr 50MG/200MG), 1 TAB PO HS Cholecalciferol (Vitamin D), 5,000 MG PO DAILY Cyanocobalamin (Vitamin B12), 1,000 MCG PO DAILY Docusate Sodium (Docusate Sodium), 100 MG PO HS Ferrous Gluconate (Ferrous Gluconate), 324 MG PO DAILY Mirtazapine (Remeron), 15 MG PO DAILY Multivitamin (Multivitamin), 1 TAB PO DAILY Pancrelipase (Lipase-Protease- (Zenpep), 10,000 UNITS PO TIDM Ropinirole Hydrochloride (Requip Xl), 1 TAB PO DAILY Sertraline Hcl (Zoloft), 7 ML PO DAILY Scheduled PRN Acetaminophen (Tylenol), 650 MG PO Q6 PRN for Pain or Fever Pancrelipase (Lipase-Protease- (Zenpep 00526 Unit), 2 CAP PO UD PRN for W/SNACKS Physical Exam Vital Signs Date Time Temp Pulse Resp B/P (MAP) Pulse Ox O2 Delivery O2 Flow Rate FiO2 02/06/17 10:45 75 18 128/86 98 02/06/17 08:16 36.4 79 20 146/87 99 Room Air Physical Exam General Appearance: no apparent distress, + thin Head: + evidence of trama (7cm posterior scalp laceration, non bleeding, visible bone on inspection) Eyes: normal inspection, PERRL, EOMI Respiratory/Chest: chest non-tender, lungs clear, normal breath sounds, no respiratory distress, no accessory muscle use Cardiovascular: regular rate, rhythm, no murmur, normal peripheral pulses Abdomen / GI: normal bowel sounds, non tender, soft Back: normal inspection (no back pain on palpation), no CVA tenderness Extremities: no calf tenderness, normal capillary refill, no pedal edema, + pertinent finding (no pain on hip rotation or wrist flexion/extension) 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 Acute posterior injury status post fall TECHNIQUE: Multiple axial CT images of the head were obtained without contrast. A dose lowering technique was utilized adhering to the principles of ALARA. CT DOSE: 614.27 mGy.cm COMPARISON: CT head 06/29/2016 FINDINGS: No acute intracranial hemorrhage, midline shift, mass, large territorial ischemia or abnormal extra-axial collection. Moderate atrophy with background moderate to severe chronic microvascular ischemic changes. Vascular calcifications are seen at the level of the skull base. The calvarium is intact. Bhdi-[id number] mucosal disease in the left maxillary sinus with air-fluid level. Prior bilateral cataract repair. No large scalp hematoma. IMPRESSION: 1. No acute intracranial abnormality. Negative for hemorrhage or calvarial fracture. 2. Atrophy with background moderate to severe chronic microvascular ischemic changes. 3. Acute left maxillary sinus disease. The above report was generated using voice recognition software. It may contain grammatical, syntax or spelling errors. Electronically signed by: Tayo Mendez M.D. 02/06/2017 9:01 AM Dictated Date/Time: 02/06/2017 8:57 AM Medications Administered Medications (Trade) Dose Ordered Sig/Laura Route Start Time Stop Time Status Last Admin Dose Admin Acetaminophen (Tylenol Tab) 650 mg NOW STAT PO 02/06/17 10:02 02/06/17 10:03 DC 02/06/17 10:18 650 MG Bacitracin (Bacitracin Oint) 1 appln NOW ONCE EXT 02/06/17 10:15 02/06/17 10:16 DC 02/06/17 10:18 1 APPLN Procedure Location: scalp Total length: 7cm Complexity: mild Verbal consent was obtained after the risks and benefits were explained, including but not limited to bleeding, scarring, infection, pain, and bone/joint /nerve damage. At this time, the risks of the procedure are less than the risks of NOT performing the procedure. A time out was taken and the correct patient and site identified. The skin was prepped with normal saline. The target area was anesthetized with 11 ml of 1% lidocaine with epinephrine. Copious irrigation was performed using normal saline. The skin was re-prepped with normal saline and a sterile field set. The wound was explored for foreign bodies and none found. Examination revealed no injury to deep structures such as tendons, bone, or significant blood vessels. Debridement was not performed. The wound edges were approximated using 13 michelle. Hemostasis and excellent approximation was achieved. Antibacterial ointment and a sterile dressing applied. Detailed wound care instructions and signs and symptoms of infection reviewed with the patient and her daughter. No complications and the patient tolerated the procedure well. ED Course 8:23am - Complete history and physical was performed by myself 8:30am - Patient was discussed with Dr Gautam who separately performed history and examination 9:16am - Patient's scalp laceration was stapled (see procedure above) 10:26am - Patient was reassessed. No new symptoms. Pain under control. Happy for discharge. Medical Decision Prior records/ancillary studies reviewed. Triage Nursing notes reviewed. Additional history obtained from patient and her daughter. The patient's history was concerning for traumatic head injury Differential diagnosis: Etiologies such as concussion, contusion, fracture, subdural hematoma, epidural hematoma, intraparenchymal hemorrhage, as well as other traumatic pathologies were entertained. Physical examination findings: As above. 7cm scalp laceration ER treatment provided: Stapled laceration (see procedure above) P.o. Tylenol Bacitracin applied to wound On reassessment the patient felt better. Given her multiple falls and clear history of balance problems with Parkinson's no further investigations were deemed necessary to evaluate her fall. CT head was performed due to degree of scalp laceration and difficulty in neurological examination secondary to Parkinson's disease and chronic changes. Imaging studies: CT head - left maxillary sinus opacity (she is not having any pain here), otherwise no acute intracranial findings It appears the patient has a mechanical fall and subsequent scalp laceration. I did discuss if symptoms were to change she should return to the ER including change in mental status, vision, hearing, speech, weakness or change in sensation. By the evaluation outlined above emergent etiologies such as fracture, subdural hematoma, epidural hematoma, intraparenchymal hemorrhage, as well as others were deemed relatively unlikely. The patient and her daughter were informed about the findings as listed above. All questions were answered and they pleased with the treatment. Return instructions were outlined and the patient was discharged in stable condition. She will return to the ER in 10-14 days for a wound check and suture removal. Medication Reconcilliation Current Medication List: was personally reviewed by me Blood Pressure Screening Patient's blood pressure: Normal blood pressure Blood pressure disposition: Did not require urgent referral Impression Primary Impression: Scalp laceration Additional Impressions: Fall at home Parkinson disease Departure Information Dispostion Home / Self-Care ([facility]) Condition GOOD Referrals Lynda Villaseñor MD (PCP) Patient Instructions My [facility] Additional Instructions Keep the area clean and dry. If you develop a scab or dried crust, soak the area using a hot washcloth for 20 minutes until the scab is soft, and then use a Q-tip to loosen any debris.If the debris persists, mix equal amounts of hydrogen peroxide and water and use a Q-tip to clean the wound. Every day, apply Bacitracin ointment. The michelle should be removed in 10-14 days. If you see any signs of infection such as redness, swelling, pus, drainage, increased pain, or if you get sick with a fever, call or come back to the Emergency Department. Take Tylenol as directed for pain relief. Use ice 3 to 4 times a day for 4 to 5 days to help with pain and swelling. Come back to the Emergency Department for a wound check in 10-14 days. Problem Qualifiers Primary Impression: Scalp laceration Encounter type: initial encounter Qualified Codes: S01.01XA - Laceration without foreign body of scalp, initial encounter Additional Impressions: Fall at home Encounter type: initial encounter Qualified Codes: W19.XXXA - Unspecified fall, initial encounter; Y92.099 - Unspecified place in other non-institutional residence as the place of occurrence of the external cause
[2017-02-06] MEDS ORDERED: BACITRACIN OINT 15 GM TUBE EXT ONE (10:15)
[2017-02-06 10:45] VITALS: BP 128/86; PULSE 75; O2SAT 98
--- NOTE | 2017-02-06 13:37 | EMERGENCY ROOM VISIT NOTE ---
ED Visit Note First contact with patient: 08:20 Resident Physician Supervision Note: Dr. Otilio Smith was resident physician during care of patient. I separately evaluated patient and did history and exam. I discussed the case with the resident and generally agree with the findings and plan. Very pleasant 86 yr old female arrives with daughter after trip/fall hitting back of head. Large laceration repaired by Dr Smith with stapled. CT head negative for acute findings. She is stable. No indication for labs/further imaging at this time. Diagnosis: Head injury, Closed Scalp Laceration Mechanical Fall Documented By: Laurent Gautam MD
== END 2017-02-06 10:44 | disposition home or self-care (01) ==
LOC: C.EDB 08:10 → C.EDA 10:44
DX: S01.01XA Laceration without foreign body of scalp, initial encounter (principal); W01.190A Fall on same level from slipping, tripping and stumbling with subsequent striking against furniture, initial encounter; Y92.099 Unspecified place in other non-institutional residence as the place of occurrence of the external cause; G20 Parkinson's disease; I10 Essential (primary) hypertension; M81.0 Age-related osteoporosis without current pathological fracture; E89.6 Postprocedural adrenocortical (-medullary) hypofunction; Z91.81 History of falling; Z87.828 Personal history of other (healed) physical injury and trauma; Z87.440 Personal history of urinary (tract) infections; Z90.81 Acquired absence of spleen; Z90.13 Acquired absence of bilateral breasts and nipples; Z98.49 Cataract extraction status, unspecified eye; Z96.649 Presence of unspecified artificial hip joint; Z79.82 Long term (current) use of aspirin

== ENCOUNTER 2017-02-18 17:13 | Emergency (ER) | payer OTHER, BC ==
[~2017-02-18 17:13] MED LIST changes: +DOCU100C31 PO; +MULT-506 PO; -SENN-65 PO
[2017-02-18 17:17] VITALS: BP 116/81; PULSE 85; TEMP 36.8; O2SAT 94
--- NOTE | 2017-02-18 17:30 | EMERGENCY ROOM VISIT NOTE ---
ED Visit Note First contact with patient: 17:20 CHIEF COMPLAINT: Staple removal HPI: This patient returns to the ED today for removal of michelle that were placed 12 days ago on the patient's scalp. There has been no swelling, redness , or drainage from the wound. The patient feels like the laceration is healing well. REVIEW OF SYSTEMS: A complete 6 point review of systems was reviewed with the patient with pertinent positives and negatives as per history of present illness. All else were negative. PMH: Anxiety, Parkinson's disease, RLS, depression MEDS: See List. I did personally review the patient's medication list with her at bedside. ALLERGIES: Egg, PCN SOCIAL HISTORY: Patient lives locally in an assisted living. She denies drug, alcohol, tobacco use. PHYSICAL EXAM: Vital Signs: Reviewed Nurse's notes. There is a stapled wound on the superior/posterior scalp with no signs of infection. There is no erythema, swelling, or tenderness. EMERGENCY DEPARTMENT COURSE: 13 michelle were removed from the superior/ posterior scalp without any difficulty and there was no separation of the wound edges. DIAGNOSIS: Healing laceration and staple removal DISCHARGE INSTRUCTIONS AND TREATMENT: Wash any remaining crusts off of the wound today and resume your normal activities. Problem List Medical Problems: (1) Closed left clavicular fracture Status: Resolved (2) Closed right tibial fracture Status: Resolved (3) Cushings syndrome Status: Chronic (4) Encounter for removal of michelle Status: Resolved (5) Fall Status: Resolved (6) Fall Status: Resolved (7) Fall at home Status: Resolved (8) Fracture of distal fibula Status: Resolved (9) Head injury Status: Resolved (10) Hypertension Status: Chronic (11) Laceration Status: Resolved (12) Parkinson disease Status: Chronic (13) Right Tibia and Fibula fractures Status: Resolved (14) Right Tibia Fracture Status: Resolved (15) Scalp laceration Status: Resolved (16) Scalp laceration Status: Resolved (17) Scalp laceration Status: Resolved Surgical Problems: (1) History of bilateral mastectomy Status: Resolved (2) History of cataract surgery Status: Resolved (3) History of hip replacement, total Status: Resolved (4) History of splenectomy Status: Resolved (5) Hx of total adrenalectomy Status: Resolved Current/Historical Medications Scheduled Artificial Tears (Artificial Tears), 1 DROPS OPB BID Artificial Tears Oph Oint (Lacri-Lube Sop Oph Oint), 1 APPLN OPB HS Aspirin (Aspirin 81), 81 MG PO DAILY Buspirone HCl (Buspirone HCl), 10 MG PO TID Calcium Carbonate-Cholecalcife (Oyster Shell Calcium + D), 1 TAB PO DAILY Carbidopa/Levodopa (Sinemet 25MG/100MG), 0.5 TAB PO 5XD Carbidopa/Levodopa (Sinemet Cr 50MG/200MG), 0.5 TAB PO 5XD Carbidopa/Levodopa (Sinemet Cr 50MG/200MG), 1 TAB PO HS Cholecalciferol (Vitamin D), 5,000 MG PO DAILY Cyanocobalamin (Vitamin B12), 1,000 MCG PO DAILY Docusate Sodium (Docusate Sodium), 100 MG PO HS Ferrous Gluconate (Ferrous Gluconate), 324 MG PO DAILY Mirtazapine (Remeron), 15 MG PO DAILY Multivitamin (Multivitamin), 1 TAB PO DAILY Pancrelipase (Lipase-Protease- (Zenpep), 10,000 UNITS PO TIDM Ropinirole Hydrochloride (Requip Xl), 1 TAB PO DAILY Sertraline Hcl (Zoloft), 7 ML PO DAILY Scheduled PRN Acetaminophen (Tylenol), 650 MG PO Q6 PRN for Pain or Fever Pancrelipase (Lipase-Protease- (Zenpep 02706 Unit), 2 CAP PO UD PRN for W/SNACKS Allergies Coded Allergies: Egg (Unverified Allergy, Unknown, UNKNOWN, 02/06/17) Penicillins (Verified Allergy, Unknown, RASH, 02/06/17) Spoke w daughter (Janine), who confirmed w Nishi that reaction was rash. Believes the reaction was to penicillin itself (vs. amoxicillin, etc). Vital Signs Date Time Temp Pulse Resp B/P (MAP) Pulse Ox O2 Delivery O2 Flow Rate FiO2 02/18/17 17:17 36.8 85 20 116/81 94 Room Air Departure Information Impression Primary Impression: Encounter for removal of michelle Dispostion Home / Self-Care Condition GOOD Referrals Caryn Cho DO (PCP) Patient Instructions ED Stap Removal No Complication, My [facility] Additional Instructions Proper wound care is essential for adequate wound healing and infection prevention. You can shower and clean the wound with soap and water. Do not scour over the wound, pat dry with a towel. Do not submerse the wound (i.e. bathe or dish wash) until the wound has fully healed. You can use an antibiotic ointment with a dressing over the wound for the next 3-4 days. After this time you may leave the wound dry and open to the air. You may wash the hair and wash the crusts from the laceration. Return for redness, pus-like drainage, fever, chills, nausea, vomiting, or other concerning symptoms.
== END 2017-02-18 17:46 | disposition home or self-care (01) ==
LOC: C.EDB 17:15 → C.EDD 17:46
DX: S01.01XD Laceration without foreign body of scalp, subsequent encounter (principal); X58.XXXD Exposure to other specified factors, subsequent encounter; G20 Parkinson's disease; I10 Essential (primary) hypertension; E89.6 Postprocedural adrenocortical (-medullary) hypofunction; F32.9 Major depressive disorder, single episode, unspecified; G25.81 Restless legs syndrome; Z91.81 History of falling; Z90.13 Acquired absence of bilateral breasts and nipples; Z90.81 Acquired absence of spleen; Z98.49 Cataract extraction status, unspecified eye; Z96.649 Presence of unspecified artificial hip joint; Z79.82 Long term (current) use of aspirin; Z79.899 Other long term (current) drug therapy

== ENCOUNTER 2018-10-09 02:31 | Inpatient (IN) ==
[2018-10-09] MEDS ORDERED: SODIUM CHLORIDE 0.9% 1000ML 500 ML IV ONE (02:56)
[2018-10-09 04:07] LABS: Basophils # (auto) 0.04 K/uL (0-0.2); Basophils % (auto) 0.2 %; Eosinophils # (auto) 0.02 K/uL (0-0.5); Eosinophils % (auto) 0.1 %; Hematocrit (blood only) 31.6 % (37-47); Hemoglobin 10.8 g/dL (12.0-16.0); Immature Granulocytes # (auto) 0.04 K/uL (0.00-0.02); Immature Granulocytes % (auto) 0.2 %; Lymphocytes # (auto) 1.36 K/uL (1.2-3.4); Lymphocytes % (auto) 8.2 %; Mean Corpuscular Hgb Conc 34.2 g/dL (32-36); Mean Corpuscular Volume 95.2 fL (80-100); Mean Platelet Volume 10.3 fL (7.4-10.4); Monocytes # (auto) 2.38 K/uL (0.11-0.59); Monocytes % (auto) 14.3 %; Neutrophils # (auto) 12.82 K/uL (1.4-6.5); Platelet Count 276 K/uL (130-400); RDW Coefficient of Variation 14.1 % (11.5-14.5); RDW Standard Deviation 48.6 fL (36.4-46.3); Red Blood Count 3.32 M/uL (4.2-5.4); White Blood Count 16.66 K/uL (4.8-10.8)
[2018-10-09 04:14] LABS: Prothrombin Time 10.6 Seconds (9.0-12.0)
[2018-10-09] MEDS ORDERED: VANCOMYCIN HCL 750 MG in SODIUM CHLORIDE 0.9% 500 ML IV ONE (04:23)
[2018-10-09] MEDS ORDERED: VANCOMYCIN CONSULT ACTIVE PRN (04:23)
[2018-10-09 04:42] LABS: Alanine Aminotransferase < 6 U/L (12-78); Albumin Level 2.8 gm/dl (3.4-5.0); Aspartate Aminotransferase 19 U/L (15-37); BUN Creatinine Ratio 24.5 (10-20); Bilirubin Direct 0.2 mg/dl (0-0.2); Blood Urea Nitrogen 26 mg/dl (7-18); Calcium 8.5 mg/dl (8.5-10.1); Carbon Dioxide 26 mmol/L (21-32); Chloride 109 mmol/L (98-107); Creatinine Clr Calc Pharmacy 20.1 ml/min; Est GFR (African American) 54.7; Est GFR (Non-African American) 47.2; Glucose 131 mg/dl (70-99); Magnesium 2.2 mg/dl (1.8-2.4); Sodium 138 mmol/L (136-145)
[2018-10-09] MEDS ORDERED: SODIUM CHLORIDE 0.9% 1000ML 1,000 ML IV SCH (04:45)
[2018-10-09 04:47] LABS: Alkaline Phosphatase 70 U/L (45-117); Total Protein 6.2 gm/dl (6.4-8.2); Troponin I < 0.015 ng/ml (0-0.045)
--- NOTE | 2018-10-09 06:43 | History & Physical Report ---
Date of Service October 09, 2018 Assessment & Plan (1) Cellulitis of left lower extremity without foot: Cellulitis of left lower extremity/stage II pressure ulcer of sacral region-- Patient has had enterococcus faecalis and MRSA grown from buttock lesions. She received vancomycin in the ED. We will place on daptomycin IV. Consult infectious disease. Consult wound care. PICC line Gentle IV fluid rehydration Present on Admission?: Yes (2) Stage II pressure ulcer of sacral region: See above Present on Admission?: Yes (3) Parkinson disease: Continue usual regimen of carbidopa levodopa and Neupro Present on Admission?: Yes (4) Vitamin B12 deficiency: Continue oral supplement 1000 mcg every morning Present on Admission?: Yes (5) Anxiety with depression: Continue usual regimen of buspirone 3 times daily and mirtazapine at bedtime Present on Admission?: Yes (6) Pancreatic insufficiency: Resume pancreatic enzymes Zenpep or equivalent when dietary intake is normalized Present on Admission?: Yes History of Present Illness Chief Complaint: The patient presents to the emergency department with a worsening wound on her left lower extremity. Primary Care Provider: Eze Benton DO The patient is a 88-year-old female resident of [facility], who has been followed at the wound care clinic for a buttock lesion, and more recently developed left lower extremity injury, there is now become infected and has presented to the ED for assessment. She has a history of enterococcus faecalis and staph aureus MRSA in her buttock wounds. She is also somewhat more fatigued than usual, appears dehydrated as well. Patient is unable to contribute significantly to her HPI and review of systems due to altered mental state, and her daughter who is with her, who has been her primary levi maker for years until recently, is with her aunt and relates her information. Allergies Allergy/AdvReac Type Severity Reaction Status Date / Time egg Allergy Unknown UNKNOWN Verified 10/09/18 05:44 Penicillins Allergy Unknown RASH Verified 10/09/18 05:44 Home Medications Home Medications Medication Instructions Recorded Confirmed Type acetaminophen [Tylenol] 650 mg PO Q4H PRN MDD 3G/24HR 02/16/18 10/09/18 History aspirin 81 mg PO QAM 02/16/18 10/09/18 History buspirone 10 mg PO TID 02/16/18 10/09/18 History carbidopa-levodopa [Sinemet CR] 0.5 tab PO 5XD 02/16/18 10/09/18 History carbidopa-levodopa [Sinemet CR] 1 tab PO HS 02/16/18 10/09/18 History carbidopa-levodopa [Sinemet] 0.5 tab PO 5XD 02/16/18 10/09/18 History cholecalciferol (vitamin D3) 5,000 unit PO QAM 02/16/18 09/29/18 History [Vitamin D3] cyanocobalamin (vitamin B-12) 1,000 mcg PO QAM 02/16/18 09/29/18 History [Vitamin B-12] dextran 70-hypromellose 1 drp OPHTHALMIC (EYE) BID 02/16/18 10/09/18 History [Artificial Tears (PF)] docusate sodium 100 mg PO HS 02/16/18 09/29/18 History ferrous gluconate 324 mg PO QAM 02/16/18 09/29/18 History vavjts-tgyespwx-parljou [Zenpep] 1 cap PO TIDM 02/16/18 09/29/18 History zynsir-leowgesx-icxvsha [Zenpep] 2 cap PO Q1H PRN 02/16/18 09/29/18 History mirtazapine 15 mg PO HS 02/16/18 09/29/18 History multivitamin 1 tab PO QAM 02/16/18 09/29/18 History rotigotine [Neupro] 2 mg TRANSDERMAL QAM 02/16/18 09/29/18 History sertraline [Zoloft] 7 ml PO QAM 02/16/18 09/29/18 History calcium carbonate-vitamin D3 1 tab PO QAM 04/17/18 09/29/18 History [Oyster Shell Calcium-Vit D3] white petrolatum-mineral oil 1 applic OPHTHALMIC (EYE) HS 09/19/18 10/09/18 History [Artificial Tears (nguyen/min)] Past Med/Surg History Social History Communication Ability: Effective Hearing Ability: Normal Beliefs That Will Affect Care: None current occupational status: retired other: Lives in Personal Care Feels Safe at Home: Yes Smoking Status: Never smoker Review of Systems Review of Systems: As noted above. Physical Exam Physical Exam: The patient is somewhat somnolent, normocephalic and atraumatic, lying in bed and in no acute distress. HEENT--PERRL, EOMI, mucous membranes and oropharynx dry. Neck--supple. No JVD. No bruits. Thyroid normal, trachea midline, no adenopathy. Heart--normal S1 and S2. No murmurs, rubs or gallops. Lungs--clear bilaterally, no respiratory distress, no accessory muscle use. Abdomen--normal bowel sounds and soft. Nontender. Nondistended. Extremities--no cyanosis or clubbing. No edema. Dermatologic--buttock/sacral ulcer as noted in wound care notes, and left lower extremity cellulitis/abscess recently wrapped. Neurologic--cranial nerves II through XII grossly intact. Rheumatologic-deferred Psychiatric--somnolent Results & Data Vital Signs (Past 12 Hours) Vital Signs Temp Pulse Pulse Resp BP BP Pulse Ox 10/09/18 06:00 94 H 19 10/09/18 05:45 99 H 34 H 10/09/18 05:31 82 22 128/69 10/09/18 05:30 110 H 25 H 10/09/18 05:15 83 19 115/71 98 10/09/18 05:01 81 22 122/72 99 10/09/18 05:00 82 20 98 10/09/18 04:46 81 20 113/71 96 10/09/18 04:45 82 20 97 10/09/18 04:31 81 17 113/68 98 10/09/18 04:30 81 20 98 10/09/18 04:25 80 16 113/68 97 10/09/18 04:24 82 19 96 10/09/18 04:22 81 19 109/68 99 10/09/18 02:38 98.8 F 91 H 18 84/55 L 96 Laboratory Results Laboratory Results WBC 16.66 K/uL (4.8-10.8) H 10/09/18 03:25 RBC 3.32 M/uL (4.2-5.4) L 10/09/18 03:25 Hgb 10.8 g/dL (12.0-16.0) L 10/09/18 03:25 Hct 31.6 % (37-47) L 10/09/18 03:25 MCV 95.2 fL (80-100) 10/09/18 03:25 MCH 32.5 pg (25-34) 10/09/18 03:25 MCHC 34.2 g/dL (32-36) 10/09/18 03:25 RDW Std Deviation 48.6 fL (36.4-46.3) H 10/09/18 03:25 RDW Coeff of Sawyer 14.1 % (11.5-14.5) 10/09/18 03:25 Plt Count 276 K/uL (130-400) 10/09/18 03:25 MPV 10.3 fL (7.4-10.4) 10/09/18 03:25 Immature Gran % (Auto) 0.2 % 10/09/18 03:25 Neut % (Auto) 77.0 % 10/09/18 03:25 Lymph % (Auto) 8.2 % 10/09/18 03:25 Ocean % (Auto) 14.3 % 10/09/18 03:25 Eos % (Auto) 0.1 % 10/09/18 03:25 Baso % (Auto) 0.2 % 10/09/18 03:25 Immature Gran # (Auto) 0.04 K/uL (0.00-0.02) H 10/09/18 03:25 Neut # (Auto) 12.82 K/uL (1.4-6.5) H 10/09/18 03:25 Lymph # (Auto) 1.36 K/uL (1.2-3.4) 10/09/18 03:25 Ocean # (Auto) 2.38 K/uL (0.11-0.59) H 10/09/18 03:25 Eos # (Auto) 0.02 K/uL (0-0.5) 10/09/18 03:25 Baso # (Auto) 0.04 K/uL (0-0.2) 10/09/18 03:25 PT 10.6 Seconds (9.0-12.0) 10/09/18 03:25 INR 1.0 (0.9-1.1) 10/09/18 03:25 Sodium 138 mmol/L (136-145) 10/09/18 03:55 Potassium 4.0 mmol/L (3.5-5.1) 10/09/18 03:55 Chloride 109 mmol/L (98-107) H 10/09/18 03:55 Carbon Dioxide 26 mmol/L (21-32) 10/09/18 03:55 Anion Gap 3.0 (3-11) 10/09/18 03:55 BUN 26 mg/dl (7-18) H 10/09/18 03:55 Creatinine 1.06 mg/dl (0.6-1.2) 10/09/18 03:55 Est Cr Clr Drug Dosing 20.1 ml/min 10/09/18 03:55 Est GFR ( Amer) 54.7 10/09/18 03:55 Est GFR (Non-Af Amer) 47.2 10/09/18 03:55 BUN/Creatinine Ratio 24.5 (10-20) H 10/09/18 03:55 Glucose 131 mg/dl (70-99) H 10/09/18 03:55 Lactate 1.0 mmol/L (0.4-2.0) 10/09/18 04:16 Calcium 8.5 mg/dl (8.5-10.1) 10/09/18 03:55 Magnesium 2.2 mg/dl (1.8-2.4) 10/09/18 03:55 Total Bilirubin 1.0 mg/dl (0.2-1) 10/09/18 03:55 Direct Bilirubin 0.2 mg/dl (0-0.2) 10/09/18 03:55 AST 19 U/L (15-37) 10/09/18 03:55 ALT < 6 U/L (12-78) L 10/09/18 03:55 Alkaline Phosphatase 70 U/L (45-117) 10/09/18 03:55 Troponin I < 0.015 ng/ml (0-0.045) 10/09/18 03:55 Total Protein 6.2 gm/dl (6.4-8.2) L 10/09/18 03:55 Albumin 2.8 gm/dl (3.4-5.0) L 10/09/18 03:55 Code Status & VTE Plan Code Status DNR/DNI VTE Prophylaxis Plan VTE Prophylaxis will be ordered: Yes
--- NOTE | 2018-10-09 07:58 | XRay Report ---
LEFT TIBIA AND FIBULA 2 VIEWS CLINICAL HISTORY: Left randall injury. Laceration. FINDINGS: AP and crosstable lateral views of the left tibia and fibula are obtained. No prior studies are available for comparison at the time of dictation. The skeletal structures are osteopenic. There is no radiographic evidence of left tibial or fibular fracture. The knee and ankle joints appear celso ntained. There is mild pretibial soft tissue edema. No radiodense foreign body is identified. IMPRESSION: Mild soft tissue swelling with no radiographic evidence of left tibial or fibular fractur e. Electronically signed by: Landon Loo M.D. 10/09/2018 7:57 AM
--- NOTE | 2018-10-09 08:10 | Emergency Department Note ---
Entered by Susan Welch acting as a scribe for Laurent Gautam MD ED Provider Note Chief complaint: Fever The patient is an 88 year old female presenting to the Emergency Department complaining of persistent fever starting 2 days ago. The patient reports that she has had a fever of 103F. The patients daughter reports that the patient has a wound on her buttocks and a new wound on her left leg. She states that the patient has been taking Keflex for the wound on her buttocks that seemed to help. She notes that the patient is a resident at [facility]. The patient reports that she is not currently in any pain or discomfort. She states that her appetite has been normal. She notes that she has been taking Tylenol [employer] for her fever. The patient denies vomiting, abdominal pain, chest pain and shortness of breath. ROS: See above HPI for pertinent positives & negatives. A total of 10 systems reviewed and were otherwise negative. Past Medical History: Bilateral carpal tunnel syndrome, Pain in joint, Vitamin D deficiency, Pancreatic internal secretion disorder, Major depressive disorder, Anxiety disorder, Diverticulitis, Nonpyogenic meningitis, HTN, Parkinsons disease, Cushings syndrome. Past Surgical History: Bilateral mastectomy, Total adrenalectomy, Splenectomy, Total hip replacement, Cataract surgery. Family History: Non-contributory. Social History: Feels safe at home. Never a smoker.Lives in personal care. Home Medications: Tylenol 650 mg PO, Aspirin 81 mg PO, Buspirone 10 mg PO, Sinemet CR 0.5 tab PO,Vitamin D3 5000 unit PO, Vitamin B-12 1000 mcg PO, Docusate sodium 100 mg PO, Ferrous gluconate 324 mg PO, Zenpep 2 cap PO, Calmoseptine 1 applic TOPICAL, Mirtazapine 15 mg PO, Neupro 2 mg PO, Zoloft 7 ml PO. Allergies: Egg, Penicillins. Physical: Vitals: BP: 84/55, Pulse: 91, Respirations: 18, Temperature: 98.8F, O2 Saturation: 96, Delivery: Room Air . Exam: GENERAL: Patient is cachectic and dehydrating appearing and in no acute distress. EYES: No scleral icterus, unremarkable pupils. ENT: Mucous membranes moist, no nasal congestion. NECK: No masses appreciated, no meningismus, trachea is midline. RESPIRATORY: No dyspnea. Clear to auscultation and equal bilaterally. No wheeze, no rhonchi. CARDIOVASCULAR: Regular rate and rhythm. No murmurs, rubs, gallops appreciated. GASTROINTESTINAL: Abdomen soft, non-tender, no peritonitis. Bowel sounds positive. No masses appreciated. BACK: No midline tenderness, no CVA tenderness EXTREMITIES: Normal motion all extremities, no cyanosis, no edema. 4 cm wound to left anterior randall with surrounding cellulitis and poor wound healing. This is significantly worse from imaging done 2 days ago. Left buttock pressure ulcer with thickened skin. Mild erythema. This is significantly improved from picture a few days ago. NEUROLOGIC: Alert and oriented, no acute motor or sensory deficits, no focal weakness, cranial nerves grossly intact. Parkinsons with very soft voice. Continuous tremor. SKIN: No rash, no jaundice, no diaphoresis. ED Course: 0249: Prior Medical Record, Triage/Nursing Notes, Medications reviewed by Me. The patient was evaluated in room A12B, and a complete history and physical examination were performed. 0342: I reevaluated the patient at this time. 0429: The patients systolic blood pressure is 109 after fluid bolus. 0500: I discussed the patients case with Dr. Tucker - [facility] hospitalist. He will evaluate the patient for further management. Labs reviewed and remarkable for elevated WBC, normal lactate Vital Signs reviewed and remarkable for hypotension Imaging: X ray results are stated below per my interpretation: Chest: 1 view: No infiltrate, no effusion, normal cardiac border. Consults: Hospitalist Blood pressure: Hypotensive initially Differentials: sepsis, UTI, pneumonia, bacteremia, metabolic process, electrolyte abnormalities, cardiac sources, intracerebral event, intra-abdominal process, toxicological process, neurologic process, as well as others were entertained. Medical Decision Makin yr old female with fevers over last few days. Patient on keflex for left leg laceration. She has worsening wound of left lower leg without evidence of abscess and imaging without sub q air nor evidence osteo. She has improving left buttock sacral ulcer. She is not febrile here but had tylenol prior to arrival. Hypotensive on arrival responded well to initial fluid bolus. WBC is elevated. She is already on keflex with worsening. She is likely early sepsis. I do not see evidence lung involvement. She has soft abdomen. No other clear cause of infection at this time other than left anterior randall infection. With worsening and early sepsis will need to bring in for further management. Given IV vanco as recent culture of sacral wound enteroccocus. While not shock she was hypotensive on arrival which after initial bolus improving and she was given further fluids for 30ml/kg through nss and vanco. Impression: Sepsis Acute Hypotension Wound Infection Laurent Gautam MD The scribe's documentation has been prepared under my direction and personally reviewed by me in its entirety. I confirm that the note above accurately refle cts all work, treatment, procedures, and medical decision making performed by me. Impression & Plan Sepsis, Acute hypotension, Wound infection Past Med/Surg History Social History Communication Ability: Effective Hearing Ability: Normal Beliefs That Will Affect Care: None current occupational status: retired other: Lives in Personal Care Feels Safe at Home: Yes Smoking Status: Never smoker Results & Data Vital Signs Vital Signs - 24 hr 10/09/18 02:38 10/09/18 04:22 10/09/18 04:24 Temperature 37.1 C Temperature Source Oral Sepsis Recent Fever Within 48 Hours Yes Sepsis Action Taken by Nursing No Action Required Pulse Rate 91 H 81 82 Pulse Rate [Apical] Pulse Rate from SpO2 Sensor 81 82 Respiratory Rate 18 19 19 Respiratory Effort / Characteristics Non-Labored Spontaneous Respiratory Depth Normal Blood Pressure 84/55 L 109/68 Blood Pressure [Right Arm] Blood Pressure Mean 64 81 Blood Pressure Mean [Right Arm] Pulse Oximetry 96 99 96 Oxygen Delivery Method Room Air 10/09/18 04:25 10/09/18 04:30 10/09/18 04:31 Temperature Temperature Source Sepsis Recent Fever Within 48 Hours Sepsis Action Taken by Nursing Pulse Rate 81 81 Pulse Rate [Apical] 80 Pulse Rate from SpO2 Sensor 80 81 Respiratory Rate 16 20 17 Respiratory Effort / Characteristics Non-Labored Spontaneous Respiratory Depth Normal Blood Pressure 113/68 Blood Pressure [Right Arm] 113/68 Blood Pressure Mean 83 Blood Pressure Mean [Right Arm] 83 Pulse Oximetry 97 98 98 Oxygen Delivery Method Room Air 10/09/18 04:45 10/09/18 04:46 10/09/18 05:00 Temperature Temperature Source Sepsis Recent Fever Within 48 Hours Sepsis Action Taken by Nursing Pulse Rate 82 81 82 Pulse Rate [Apical] Pulse Rate from SpO2 Sensor 82 81 83 Respiratory Rate 20 20 20 Respiratory Effort / Characteristics Respiratory Depth Blood Pressure 113/71 Blood Pressure [Right Arm] Blood Pressure Mean 85 Blood Pressure Mean [Right Arm] Pulse Oximetry 97 96 98 Oxygen Delivery Method 10/09/18 05:01 10/09/18 05:15 10/09/18 05:30 Temperature Temperature Source Sepsis Recent Fever Within 48 Hours Sepsis Action Taken by Nursing Pulse Rate 81 83 110 H Pulse Rate [Apical] Pulse Rate from SpO2 Sensor 82 83 Respiratory Rate 22 19 25 H Respiratory Effort / Characteristics Respiratory Depth Blood Pressure 122/72 115/71 Blood Pressure [Right Arm] Blood Pressure Mean 88 85 Blood Pressure Mean [Right Arm] Pulse Oximetry 99 98 Oxygen Delivery Method 10/09/18 05:31 10/09/18 05:45 10/09/18 06:00 Temperature Temperature Source Sepsis Recent Fever Within 48 Hours Sepsis Action Taken by Nursing Pulse Rate 82 99 H 94 H Pulse Rate [Apical] Pulse Rate from SpO2 Sensor Respiratory Rate 22 34 H 19 Respiratory Effort / Characteristics Respiratory Depth Blood Pressure 128/69 Blood Pressure [Right Arm] Blood Pressure Mean 88 Blood Pressure Mean [Right Arm] Pulse Oximetry Oxygen Delivery Method 10/09/18 07:15 Temperature Temperature Source Sepsis Recent Fever Within 48 Hours Sepsis Action Taken by Nursing Pulse Rate Pulse Rate [Apical] 97 H Pulse Rate from SpO2 Sensor Respiratory Rate 16 Respiratory Effort / Characteristics Respiratory Depth Blood Pressure Blood Pressure [Right Arm] 148/95 H Blood Pressure Mean Blood Pressure Mean [Right Arm] 112 Pulse Oximetry 94 Oxygen Delivery Method Room Air Home Medications Current Medication List: was personally reviewed by me Laboratory Data Attestation: I reviewed the patient's lab results. Result diagrams: 10/09/18 03:25 10/09/18 03:55 Lab Results 10/09/18 10/09/18 10/09/18 Range/Units 03:25 03:25 03:55 WBC 16.66 H (4.8-10.8) K/uL RBC 3.32 L (4.2-5.4) M/uL Hgb 10.8 L (12.0-16.0) g/dL Hct 31.6 L (37-47) % MCV 95.2 (80-100) fL MCH 32.5 (25-34) pg MCHC 34.2 (32-36) g/dL RDW Std Deviation 48.6 H (36.4-46.3) fL RDW Coeff of Sawyer 14.1 (11.5-14.5) % Plt Count 276 (130-400) K/uL MPV 10.3 (7.4-10.4) fL Immature Gran % (Auto) 0.2 % Neut % (Auto) 77.0 % Lymph % (Auto) 8.2 % [place] % (Auto) 14.3 % Eos % (Auto) 0.1 % Baso % (Auto) 0.2 % Immature Gran # (Auto) 0.04 H (0.00-0.02) K/uL Neut # (Auto) 12.82 H (1.4-6.5) K/uL Lymph # (Auto) 1.36 (1.2-3.4) K/uL [place] # (Auto) 2.38 H (0.11-0.59) K/uL Eos # (Auto) 0.02 (0-0.5) K/uL Baso # (Auto) 0.04 (0-0.2) K/uL PT 10.6 (9.0-12.0) Seconds INR 1.0 (0.9-1.1) Sodium 138 (136-145) mmol/L Potassium 4.0 (3.5-5.1) mmol/L Chloride 109 H (98-107) mmol/L Carbon Dioxide 26 (21-32) mmol/L Anion Gap 3.0 (3-11) BUN 26 H (7-18) mg/dl Creatinine 1.06 (0.6-1.2) mg/dl Est Cr Clr Drug Dosing 20.1 ml/min Est GFR ( Amer) 54.7 Est GFR (Non-Af Amer) 47.2 BUN/Creatinine Ratio 24.5 H (10-20) Glucose 131 H (70-99) mg/dl Lactate (0.4-2.0) mmol/L Calcium 8.5 (8.5-10.1) mg/dl Magnesium 2.2 (1.8-2.4) mg/dl Total Bilirubin 1.0 (0.2-1) mg/dl Direct Bilirubin 0.2 (0-0.2) mg/dl AST 19 (15-37) U/L ALT < 6 L (12-78) U/L Alkaline Phosphatase 70 (45-117) U/L Troponin I < 0.015 (0-0.045) ng/ml Total Protein 6.2 L (6.4-8.2) gm/dl Albumin 2.8 L (3.4-5.0) gm/dl 10/09/18 Range/Units 04:16 WBC (4.8-10.8) K/uL RBC (4.2-5.4) M/uL Hgb (12.0-16.0) g/dL Hct (37-47) % MCV (80-100) fL MCH (25-34) pg MCHC (32-36) g/dL RDW Std Deviation (36.4-46.3) fL RDW Coeff of Sawyer (11.5-14.5) % Plt Count (130-400) K/uL MPV (7.4-10.4) fL Immature Gran % (Auto) % Neut % (Auto) % Lymph % (Auto) % [place] % (Auto) % Eos % (Auto) % Baso % (Auto) % Immature Gran # (Auto) (0.00-0.02) K/uL Neut # (Auto) (1.4-6.5) K/uL Lymph # (Auto) (1.2-3.4) K/uL [place] # (Auto) (0.11-0.59) K/uL Eos # (Auto) (0-0.5) K/uL Baso # (Auto) (0-0.2) K/uL PT (9.0-12.0) Seconds INR (0.9-1.1) Sodium (136-145) mmol/L Potassium (3.5-5.1) mmol/L Chloride (98-107) mmol/L Carbon Dioxide (21-32) mmol/L Anion Gap (3-11) BUN (7-18) mg/dl Creatinine (0.6-1.2) mg/dl Est Cr Clr Drug Dosing ml/min Est GFR ( Amer) Est GFR (Non-Af Amer) BUN/Creatinine Ratio (10-20) Glucose (70-99) mg/dl Lactate 1.0 (0.4-2.0) mmol/L Calcium (8.5-10.1) mg/dl Magnesium (1.8-2.4) mg/dl Total Bilirubin (0.2-1) mg/dl Direct Bilirubin (0-0.2) mg/dl AST (15-37) U/L ALT (12-78) U/L Alkaline Phosphatase (45-117) U/L Troponin I (0-0.045) ng/ml Total Protein (6.4-8.2) gm/dl Albumin (3.4-5.0) gm/dl Administered Medications Sodium Chloride (Nss 1000ml) 1,000 mls @ 80 mls/hr IV .[id number] PITA Stop: 11/08/18 04:44 Last Infusion: 10/09/18 07:36 Dose: 0 mls/hr Documented by: [id number] Admin: 10/09/18 04:59 Dose: 80 mls/hr Documented by: [id number] Discontinued Medications Sodium Chloride (Nss 1000ml) 500 mls @ 999 mls/hr IV .[id number] ONE Stop: 10/09/18 03:26 Last Infusion: 10/09/18 04:28 Dose: 0 mls/hr Documented by: [id number] Admin: 10/09/18 03:55 Dose: 999 mls/hr Documented by: [id number] Vancomycin HCl 750 mg/ Sodium (Chloride) 515 mls @ 200 mls/hr IV NOW ONE; Prot ocol Stop: 10/09/18 06:52 Last Admin: 10/09/18 04:59 Dose: 200 mls/hr Documented by: [id number] Blood Pressure Blood Pressure Findings: Normal blood pressure Blood Pressure Disposition: further management by hospitalist Discharge Plan Visit Data Chief Complaint: Fever Stated Complaint: FEVER,WOUND ON BUTTOX AND RIGHT LEG ED Provider: Laurent Gautam Discharge Problem: Sepsis, Acute hypotension, Wound infection Patient Disposition: Being Evaluated by Hospitalist Discharge Problem: Sepsis Qualifiers: Sepsis type: sepsis due to unspecified organism Qualified Code(s): A41.9 - Sepsis, unspecified organism The scribe's documentation has been prepared under my direction and personally reviewed by me in its entirety. I confirm that the note above accurately reflects all work, treatment, procedures, and medical decision making performed by me.
--- NOTE | 2018-10-09 08:17 | XRay Report ---
SINGLE VIEW CHEST CLINICAL HISTORY: Sepsis. Fever. FINDINGS: An AP, portable, upright chest radiograph is compared to study dated 09/19/2018 and correlat ed with chest CT dated 04/17/2018. The examination is significantly degraded by portable technique an d patient rotation. The heart is enlarged and there is atherosclerotic calcification of the thoracic aorta. The pulmonary vasculature is noncongested. There is chronic elevation of the right hemidiaphr agm and bibasilar atelectasis. No airspace consolidation or large pleural effusion is identified. No pneumothorax is seen. The skeletal structures are osteopenic. The bony thorax is grossly intact. Adva nced degenerative change is noted in the shoulders. IMPRESSION: Cardiomegaly with no acute cardiopulmonary abnormality. Electronically signed by: Landon Loo M.D. 10/09/2018 8:16 AM
[2018-10-09] MEDS ORDERED: ACETAMINOPHEN 325 MG TAB PO PRN (08:33)
[2018-10-09] MEDS ORDERED: DAPTOMYCIN IV ONE (08:33)
[2018-10-09] MEDS ORDERED: ARTIFICIAL TEARS OP SCH (09:00)
[2018-10-09] MEDS ORDERED: DAPTOmycin 150 MG in SYRINGE 0 ML IV ONE (09:00)
[2018-10-09] MEDS: CARBIDOPA/LEVODOPA 25/100MG TAB PO SCH ×4 (09:54→18:43)
[2018-10-09] MEDS: ASPIRIN 81 MG CHEW PO SCH (09:54)
[2018-10-09] MEDS: CARBIDOPA/LEVODOPA 50/200MG EXT REL TAB PO SCH ×5 (09:55→21:30)
[2018-10-09] MEDS: MULTIVITAMIN TAB PO SCH ×2 (10:13→12:53)
[2018-10-09] MEDS: CYANOCOBALAMIN 500 MCG TABLET (VITAMIN B-12) PO SCH ×2 (10:13→12:53)
[2018-10-09] MEDS: CHOLECALCIFEROL 1,000 UNITS TAB PO SCH ×2 (10:14→12:53)
[2018-10-09] MEDS: ACETAMINOPHEN 1000 MG/100 ML IV IV PRN ×2 (10:35→21:57)
[2018-10-09] MEDS: SERTRALINE 20 MG/ML PO SCH (13:09)
--- NOTE | 2018-10-09 13:35 | Hospitalist Progress Note ---
Date of Service October 09, 2018 Assessment & Plan (1) Cellulitis of left lower extremity without foot: Cellulitis of left lower extremity/stage II pressure ulcer of sacral region-- Patient has had enterococcus faecalis 10/04 and MRSA 08/16 grown from buttock lesions. Continue daptomycin IV. Consult infectious disease. Consult wound care. PICC line Gentle IV fluid rehydration (2) Stage II pressure ulcer of sacral region: See above (3) Parkinson disease: Continue usual regimen of carbidopa levodopa and Neupro (4) Vitamin B12 deficiency: Continue oral supplement 1000 mcg every morning (5) Anxiety with depression: Continue usual regimen of buspirone 3 times daily and mirtazapine at bedtime (6) Pancreatic insufficiency: Resume pancreatic enzymes Zenpep or equivalent when dietary intake is normalized (7) DVT prophylaxis: SCDs Subjective Ms. Cruz is accompanied by her daughter and son in law at bedside. She reports that she has some pain but feels a bit better than when she arrived. She continu es to be febrile Review of Systems Review of Systems: All systems reviewed & are unremarkable except as noted in HPI & below Physical Exam Physical Exam: General: no distress Eyes: normal inspection, PERLL Respiratory: chest non tender, clear to auscultation, normal breath sounds, no respiratory distress, no accessory muscle use Cardiac: regular rate and rhythm, no rub or gallop, no murmur, no edema, no jvd GI/: active bowel sounds, no abd pain or tenderness, soft, non distended Extremities: normal range of motion, generalized weakness, non tender Neuro/Psych: alert and oriented x 3, normal mood and affect Skin: normal color, dry, fragile Results & Data Vital Signs (Past 12 Hours) Vital Signs Temp Pulse Pulse Resp BP BP Pulse Ox 10/09/18 10:18 38.6 C H 10/09/18 08:26 36.9 C 94 H 16 144/76 H 95 10/09/18 07:15 97 H 16 148/95 H 94 10/09/18 06:00 94 H 19 10/09/18 05:45 99 H 34 H 10/09/18 05:31 82 22 128/69 10/09/18 05:30 110 H 25 H 10/09/18 05:15 83 19 115/71 98 10/09/18 05:01 81 22 122/72 99 10/09/18 05:00 82 20 98 10/09/18 04:46 81 20 113/71 96 10/09/18 04:45 82 20 97 10/09/18 04:31 81 17 113/68 98 10/09/18 04:30 81 20 98 10/09/18 04:25 80 16 113/68 97 10/09/18 04:24 82 19 96 10/09/18 04:22 81 19 109/68 99 10/09/18 02:38 37.1 C 91 H 18 84/55 L 96
--- NOTE | 2018-10-09 16:51 | Infectious Disease Consult ---
Date of Consultation October 09, 2018 Assessment & Plan (1) Cellulitis of left lower extremity without foot: 88-year-old female with infected traumatic wound to her left lower extremity, as well as sacral pressure sore. Given previous culture results, daptomycin appropriate pending further culture results. Will adjust once these are available. Length of IV antibiotics will be determined by clinical response. Will follow. (2) Stage II pressure ulcer of sacral region: History of Present Illness Reason for Consultation: Left lower extremity cellulitis, sacral pressure ulcer Attending Physician: Gael Tucker MD History of Present Illness History obtained from medical staff and medical records as patient unable to provide adequate history. 88-year-old female with history of Parkinson's, hypertension, Pérez's syndrome, who follows with the wound care center because of sacral pressure wound. She has received local wound care, and previous cultures were positive for MRSA and enterococcus. She had previously been treated with cephalexin without apparent improvement. She recently suffered a traumatic wound to her left lower leg, over the past several days has developed fever to 103 associated with increasing redness and swelling around the left leg wound. She was transferred for admission, and is started empirically on daptomycin. Blood cultures are pending. X-ray of left lower leg, read by me, shows no obvious bony infection. Allergies Allergy/AdvReac Type Severity Reaction Status Date / Time egg Allergy Unknown UNKNOWN Verified 10/09/18 05:44 Penicillins Allergy Unknown RASH Verified 10/09/18 05:44 Home Medications Home Medications Medication Instructions Recorded Confirmed Type acetaminophen [Tylenol] 650 mg PO Q4H PRN MDD 3G/24HR 02/16/18 10/09/18 History aspirin 81 mg PO QAM 02/16/18 10/09/18 History buspirone 10 mg PO TID 02/16/18 10/09/18 History carbidopa-levodopa [Sinemet CR] 0.5 tab PO 5XD 02/16/18 10/09/18 History carbidopa-levodopa [Sinemet CR] 1 tab PO HS 02/16/18 10/09/18 History carbidopa-levodopa [Sinemet] 0.5 tab PO 5XD 02/16/18 10/09/18 History cholecalciferol (vitamin D3) 5,000 unit PO QAM 02/16/18 10/09/18 History [Vitamin D3] cyanocobalamin (vitamin B-12) 1,000 mcg PO QAM 02/16/18 10/09/18 History [Vitamin B-12] dextran 70-hypromellose 1 drp OPHTHALMIC (EYE) BID 02/16/18 10/09/18 History [Artificial Tears (PF)] docusate sodium 100 mg PO HS 02/16/18 10/09/18 History ferrous gluconate 324 mg PO QAM 02/16/18 10/09/18 History vhukua-vuyexbkf-kzoexhk [Zenpep] 1 cap PO TIDM 02/16/18 10/09/18 History owbzyu-tygfvran-aeuhrqr [Zenpep] 2 cap PO Q1H PRN 02/16/18 10/09/18 History mirtazapine 15 mg PO HS 02/16/18 10/09/18 History multivitamin 1 tab PO QAM 02/16/18 10/09/18 History rotigotine [Neupro] 2 mg TRANSDERMAL QAM 02/16/18 10/09/18 History sertraline [Zoloft] 7 ml PO QAM 02/16/18 10/09/18 History calcium carbonate-vitamin D3 1 tab PO QAM 04/17/18 10/09/18 History [Oyster Shell Calcium-Vit D3] white petrolatum-mineral oil 1 applic OPHTHALMIC (EYE) HS 09/19/18 10/09/18 History [Artificial Tears (nguyen/min)] Patient History Medical History Hypertension (Chronic) Parkinson disease (Chronic) Cushings syndrome (Chronic) Urinary tract infection Parkinson disease Anxiety disorder (Chronic) Bilateral carpal tunnel syndrome (Chronic) Disorder of pancreatic internal secretion (Chronic) Diverticulosis of large intestine without perforation or abscess without bleeding (Chronic) Muscle weakness (generalized) (Chronic) Nonpyogenic meningitis (Chronic) Other dietary vitamin B12 deficiency anemia (Chronic) Pain in joint (Chronic) Recurrent major depressive disorder (Chronic) Vitamin D deficiency (Chronic) Cataract (Resolved) Surgical History History of bilateral mastectomy (Resolved) Hx of total adrenalectomy (Resolved) History of splenectomy (Resolved) History of hip replacement, total (Resolved) History of cataract surgery (Resolved) Family History Other Family history non-contributory Social History Preferred Language: Burkinan Communication Ability: Effective Hearing Ability: Normal Beliefs That Will Affect Care: None Current Living Situation: Personal Care Facility Current Living Situation Comment: [facility] current occupational status: retired Other Information That Helps Us Care for You: No other: Lives in Personal Care Feels Safe at Home: Yes Safety Concerns: Feels Safe At This Time Smoking Status: Never smoker Hx Alcohol Use: No Hx Substance Use: No Review of Systems Review of Systems: Unobtainable due to cognitive status Physical Exam Constitutional: WD/WN, vitals as above comfortable; no acute distress Eyes: PERRL, conjunctivae normal, anicteric sclerae ENMT: external ear and nose normal, oropharynx normal Neck: trachea midline, no thyromegaly neck nontender Respiratory: normal respiratory effort, lungs clear to auscultation normal percussion; does not use accessory muscles Cardiovascular: Rate/Rhythm: regular rate and regular rhythm Heart Sounds: normal S1 and normal S2; no gallop, no murmur and no cardiac rub Vessels: normal peripheral pulses; no JVD Gastrointestinal (Abdomen): normal bowel sounds, soft, nontender, no hepatosplenomegaly Musculoskeletal: no cyanosis or clubbing, extremities motor strength 5/5 Spine: thoracic spine normal to inspection and lumbar spine normal to inspection; no cervical spinal tenderness Skin: normal turgor and + wound (Sacral pressure sore with some surrounding erythema, left lower leg superficial hematoma with surrounding erythema); no rashes Neurologic: moves all extremities, awake and + confused Psychiatric: Orientation: alert and oriented to person Lymphatic: no cervical or axillary lymphadenopathy no inguinal lymphadenopathy Results & Data Vital Signs (Past 12 Hours) Vital Signs Temp Pulse Pulse Resp BP BP Pulse Ox 10/09/18 15:51 36.4 C L 77 20 91/54 L 96 10/09/18 10:18 38.6 C H 10/09/18 08:26 36.9 C 94 H 16 144/76 H 95 10/09/18 07:15 97 H 16 148/95 H 94 10/09/18 06:00 94 H 19 10/09/18 05:45 99 H 34 H 05/05/19 05:31 82 22 128/69 05/05/19 05:30 110 H 25 H 10/09/18 05:15 83 19 115/71 98 10/09/18 05:01 81 22 122/72 99 10/09/18 05:00 82 20 98 Laboratory Results Short CBC 10/09/18 Range/Units 03:25 WBC 16.66 H (4.8-10.8) K/uL Hgb 10.8 L (12.0-16.0) g/dL Hct 31.6 L (37-47) % Plt Count 276 (130-400) K/uL BMP 10/09/18 03:55 Sodium 138 Potassium 4.0 Chloride 109 H Carbon Dioxide 26 BUN 26 H Creatinine 1.06 Glucose 131 H Calcium 8.5 Cardiac Enzymes 10/09/18 Range/Units 03:55 Troponin I < 0.015 (0-0.045) ng/ml Liver Function 10/09/18 Range/Units 03:55 Total Bilirubin 1.0 (0.2-1) mg/dl Direct Bilirubin 0.2 (0-0.2) mg/dl AST 19 (15-37) U/L ALT < 6 L (12-78) U/L Alkaline Phosphatase 70 (45-117) U/L Albumin 2.8 L (3.4-5.0) gm/dl Diagnostic Findings 10/04/18-UNK Received: 10/04/18-[address]: Fidel Cordova, Copy To: Eze Benton DO Source: Buttock OV Order: Ordered: Surf Wnd Cul/Sm Procedure Result Verified Site Gram Stain Final 10/05/18 Gram Stain Result No Epithelial Cells No WBCs Seen No Organisms Seen Surface Wound Culture Final 10/07/18-124 Organism 1 Enterococcus faecalis Quantity Rare Sens Sensitivities to Follow E faecalis RX M.I.C. --- --------- Ampicillin S <=2 Daptomycin S 2 Gent Synergy R >500 Penicillin S 2 Strep Synergy S <=1000 Vancomycin S 2 Enterococcus faecalis: Positive Combo 33 Streptomycin Synergy Screen S Gentamicin Synergy Screen R S = SENSITIVE I = INTERMEDIATE R = RESISTANT LEFT TIBIA AND FIBULA 2 VIEWS CLINICAL HISTORY: Left randall injury. Laceration. FINDINGS: AP and crosstable lateral views of the left tibia and fibula are obtained. No prior studies are available for comparison at the time of dictation. The skeletal structures are osteopenic. There is no radiographic evidence of left tibial or fibular fracture. The knee and ankle joints appear maintained. There is mild pretibial soft tissue edema. No radiodense foreign body is identified. IMPRESSION: Mild soft tissue swelling with no radiographic evidence of left tibial or fibular fracture. Electronically signed by: Landon Loo M.D. 10/09/2018 7:57 AM Name: AYANA PEDRO : 1930 PAGE 1 Printed: 10/09/18 [id number]
[2018-10-09] MEDS: ARTIFICIAL TEARS OP SCH ×2 (17:45→21:32)
[2018-10-09] MEDS: ARTIFICIAL TEARS OP OINT 3.5 GM TUBE OP SCH (21:31)
[2018-10-09] MEDS: MIRTAZAPINE TAB 15 MG TAB PO SCH (21:32)
[2018-10-10 07:04] LABS: Hematocrit (blood only) 32.9 % (37-47); Hemoglobin 11.4 g/dL (12.0-16.0); Mean Corpuscular Hgb Conc 34.7 g/dL (32-36); Mean Corpuscular Volume 95.4 fL (80-100); Mean Platelet Volume 10.3 fL (7.4-10.4); Platelet Count 265 K/uL (130-400); RDW Standard Deviation 48.5 fL (36.4-46.3); Red Blood Count 3.45 M/uL (4.2-5.4); White Blood Count 21.24 K/uL (4.8-10.8)
[2018-10-10 07:21] LABS: BUN Creatinine Ratio 21.7 (10-20); Calcium 9.1 mg/dl (8.5-10.1); Creatinine Clr Calc Pharmacy 24.5 ml/min; Est GFR (African American) 69.4; Est GFR (Non-African American) 59.9; Potassium 4.1 mmol/L (3.5-5.1)
[2018-10-10] MEDS: CARBIDOPA/LEVODOPA 25/100MG TAB PO SCH ×5 (08:12→20:04)
[2018-10-10] MEDS: CARBIDOPA/LEVODOPA 50/200MG EXT REL TAB PO SCH ×6 (08:14→21:38)
[2018-10-10] MEDS: CYANOCOBALAMIN 500 MCG TABLET (VITAMIN B-12) PO SCH (08:15)
[2018-10-10] MEDS: MULTIVITAMIN TAB PO SCH (08:15)
[2018-10-10] MEDS: CHOLECALCIFEROL 1,000 UNITS TAB PO SCH (08:15)
[2018-10-10] MEDS: ASPIRIN 81 MG CHEW PO SCH (08:16)
[2018-10-10] MEDS: SERTRALINE 20 MG/ML PO SCH (08:18)
[2018-10-10] MEDS: ARTIFICIAL TEARS OP SCH ×4 (08:19→21:39)
--- NOTE | 2018-10-10 11:57 | Hospitalist Progress Note ---
Date of Service October 10, 2018 Assessment & Plan (1) Cellulitis of left lower extremity without foot: Cellulitis of left lower extremity/stage II pressure ulcer of sacral region-- Patient has had enterococcus faecalis 10/04 and MRSA 08/16 grown from buttock lesions. Continue daptomycin IV. Discussed with pharmacy and ordered 48h. Consulted infectious disease. Consulted wound care. PICC line Gentle IV fluid rehydration (2) Stage II pressure ulcer of sacral region: See above (3) Parkinson disease: Continue usual regimen of carbidopa levodopa and Neupro (4) Vitamin B12 deficiency: Continue oral supplement 1000 mcg every morning (5) Anxiety with depression: Continue usual regimen of buspirone 3 times daily and mirtazapine at bedtime (6) Pancreatic insufficiency: Resume pancreatic enzymes Zenpep or equivalent when dietary intake is normalized (7) DVT prophylaxis: SCDs Spent 35 minutes in mnagement of patient this included chart review. Subjective 88 YO female is found sitting in wheelchair. Patient currently denies any new complaints. She is soft spoken and mainly nods. Her daughter is at bedside, and states she does look better. Her mental status has some waxing and waning mainly due to her parkison. Review of Systems Review of Systems: Unobtainable due to mental health condition Physical Exam Physical Exam: General: no distress Eyes: normal inspection, PERLL Respiratory: chest non tender, clear to auscultation, normal breath sounds, no respiratory distress, no accessory muscle use Cardiac: regular rate and rhythm, no rub or gallop, no murmur, no edema, no jvd GI/: active bowel sounds, no abd pain or tenderness, soft, non distended Extremities: normal range of motion, generalized weakness, non tender , wound on affected extremity shows some erythema, but no drainage of any kind) Neuro/Psych: alert and oriented x 3, normal mood and affect Skin: normal color, dry, fragile Results & Data Vital Signs (Past 12 Hours) Vital Signs Temp Pulse Resp BP Pulse Ox 10/10/18 07:49 36.5 C 83 16 118/73 97 10/10/18 06:30 85 131/65 95
[2018-10-10] MEDS ORDERED: DAPTOmycin 500 MG VIAL IV SCH (12:00)
[2018-10-10] MEDS ORDERED: DAPTOmycin 150 MG in SYRINGE 0 ML IV SCH (14:00)
[2018-10-10] MEDS: ACETAMINOPHEN 1000 MG/100 ML IV IV PRN (18:25)
--- NOTE | 2018-10-10 19:13 | Infectious Disease Progress Nt ---
Date of Service October 10, 2018 Assessment & Plan (1) Cellulitis of left lower extremity without foot: 88-year-old female with infected traumatic wound to her left lower extremity, as well as sacral pressure sore. Given previous culture results, daptomycin appropriate pending further culture results. Will adjust once these are available. Length of IV antibiotics will be determined by clinical response. Will follow. (2) Stage II pressure ulcer of sacral region: Subjective Patient seen in follow-up for lower extremity infection and pressure score of buttocks. Appears improved, remains afebrile. Tolerating antibiotics without apparent difficulty. Expresses no increase in pain. Review of Systems Review of Systems: All systems reviewed & are unremarkable except as noted in HPI & below Physical Exam Constitutional: WD/WN, vitals as above comfortable; no acute distress Eyes: PERRL, conjunctivae normal, anicteric sclerae ENMT: external ear and nose normal, oropharynx normal Neck: trachea midline, no thyromegaly neck nontender Respiratory: normal respiratory effort, lungs clear to auscultation normal percussion; does not use accessory muscles Cardiovascular: Rate/Rhythm: regular rate and regular rhythm Heart Sounds: normal S1 and normal S2; no gallop, no murmur and no cardiac rub Vessels: normal peripheral pulses; no JVD Gastrointestinal (Abdomen): normal bowel sounds, soft, nontender, no hepatosplenomegaly Musculoskeletal: no cyanosis or clubbing, extremities motor strength 5/5 Spine: thoracic spine normal to inspection and lumbar spine normal to inspection; no cervical spinal tenderness Skin: normal turgor and + wound (Sacral pressure sore with some surrounding erythema, left lower leg superficial hematoma with surrounding erythema); no rashes Neurologic: moves all extremities, awake and + confused Psychiatric: Orientation: alert and oriented to person Lymphatic: no cervical or axillary lymphadenopathy no inguinal lymphadenopathy Results & Data Vital Signs (Past 12 Hours) Vital Signs Temp Pulse Resp BP Pulse Ox 10/10/18 18:18 39.8 C H 10/10/18 15:30 37.3 C 88 20 103/66 98 10/10/18 07:49 36.5 C 83 16 118/73 97 Laboratory Results Short CBC 10/10/18 Range/Units 06:50 WBC 21.24 H (4.8-10.8) K/uL Hgb 11.4 L (12.0-16.0) g/dL Hct 32.9 L (37-47) % Plt Count 265 (130-400) K/uL BMP 10/10/18 06:50 Sodium 140 Potassium 4.1 Chloride 108 H Carbon Dioxide 23 BUN 19 H Creatinine 0.87 Glucose 94 Calcium 9.1
[2018-10-10] MEDS: ARTIFICIAL TEARS OP OINT 3.5 GM TUBE OP SCH (21:38)
[2018-10-10] MEDS: MIRTAZAPINE TAB 15 MG TAB PO SCH (21:38)
[2018-10-11 06:14] LABS: Hematocrit (blood only) 31.9 % (37-47); Hemoglobin 11.1 g/dL (12.0-16.0); Mean Corpuscular Hgb Conc 34.8 g/dL (32-36); Mean Corpuscular Volume 93.3 fL (80-100); Platelet Count 288 K/uL (130-400); RDW Standard Deviation 47.9 fL (36.4-46.3); Red Blood Count 3.42 M/uL (4.2-5.4); White Blood Count 18.18 K/uL (4.8-10.8)
[2018-10-11] MEDS: CARBIDOPA/LEVODOPA 25/100MG TAB PO SCH ×5 (06:29→19:03)
[2018-10-11] MEDS: CARBIDOPA/LEVODOPA 50/200MG EXT REL TAB PO SCH ×6 (06:29→21:42)
[2018-10-11 06:40] LABS: BUN Creatinine Ratio 23.6 (10-20); Creatinine Clr Calc Pharmacy 24.2 ml/min; Est GFR (African American) 68.5; Est GFR (Non-African American) 59.1
[2018-10-11] MEDS: CHOLECALCIFEROL 1,000 UNITS TAB PO SCH (09:13)
[2018-10-11] MEDS: MULTIVITAMIN TAB PO SCH (09:13)
[2018-10-11] MEDS: CYANOCOBALAMIN 500 MCG TABLET (VITAMIN B-12) PO SCH (09:14)
[2018-10-11] MEDS: ASPIRIN 81 MG CHEW PO SCH (09:27)
[2018-10-11] MEDS: ARTIFICIAL TEARS OP SCH ×4 (09:29→21:43)
[2018-10-11] MEDS: DAPTOmycin 150 MG in SYRINGE 0 ML IV SCH (09:29)
[2018-10-11] MEDS: SERTRALINE 20 MG/ML PO SCH (09:37)
--- NOTE | 2018-10-11 14:56 | Infectious Disease Progress Nt ---
Date of Service October 11, 2018 Assessment & Plan (1) Cellulitis of left lower extremity without foot: 88-year-old female with infected traumatic wound to her left lower extremity, as well as sacral pressure sore. Previously isolated MRSA and enterococcus should be well covered by daptomycin. Continue IV daptomycin, likely need few more days of IV therapy. Will follow. (2) Stage II pressure ulcer of sacral region: (3) Enterococcal infection: Subjective Patient seen in follow-up for lower extremity infection and pressure score of buttocks. Appears improved, remains afebrile. Tolerating antibiotics without apparent difficulty. Expresses no increase in pain. Culture from buttock wound has been Enterococcus faecalis. Continues to tolerate daptomycin without apparent difficulty. Review of Systems Review of Systems: All systems reviewed & are unremarkable except as noted in HPI & below Physical Exam Constitutional: WD/WN, vitals as above comfortable; no acute distress Eyes: PERRL, conjunctivae normal, anicteric sclerae ENMT: external ear and nose normal, oropharynx normal Neck: trachea midline, no thyromegaly neck nontender Respiratory: normal respiratory effort, lungs clear to auscultation normal percussion; does not use accessory muscles Cardiovascular: Rate/Rhythm: regular rate and regular rhythm Heart Sounds: normal S1 and normal S2; no gallop, no murmur and no cardiac rub Vessels: normal peripheral pulses; no JVD Gastrointestinal (Abdomen): normal bowel sounds, soft, nontender, no hepatosplenomegaly Musculoskeletal: no cyanosis or clubbing, extremities motor strength 5/5 Spine: thoracic spine normal to inspection and lumbar spine normal to inspection; no cervical spinal tenderness Skin: normal turgor and + wound (Sacral pressure sore with some surrounding erythema, left lower leg superficial hematoma with surrounding erythema); no rashes Neurologic: moves all extremities, awake and + confused Psychiatric: Orientation: alert and oriented to person Lymphatic: no cervical or axillary lymphadenopathy no inguinal lymphadenopathy Results & Data Vital Signs (Past 12 Hours) Vital Signs Temp Pulse Resp BP Pulse Ox 10/11/18 08:00 34.7 C L 82 18 137/79 96 Laboratory Results Short CBC 10/11/18 Range/Units 05:54 WBC 18.18 H (4.8-10.8) K/uL Hgb 11.1 L (12.0-16.0) g/dL Hct 31.9 L (37-47) % Plt Count 288 (130-400) K/uL BMP 10/11/18 05:54 Sodium 139 Potassium 4.0 Chloride 107 Carbon Dioxide 24 BUN 21 H Creatinine 0.88 Glucose 112 H Calcium 9.0 Diagnostic Findings Microbiology 10/09/18 03:40 Blood Blood Culture - Preliminary No growth to date. 10/09/18 03:25 Blood Blood Culture - Preliminary No growth to date.
[2018-10-11] MEDS: MIRTAZAPINE TAB 15 MG TAB PO SCH (21:42)
[2018-10-11] MEDS: ARTIFICIAL TEARS OP OINT 3.5 GM TUBE OP SCH (21:43)
--- NOTE | 2018-10-11 22:48 | Hospitalist Progress Note ---
Date of Service October 11, 2018 Assessment & Plan (1) Cellulitis of left lower extremity without foot: Cellulitis of left lower extremity/stage II pressure ulcer of sacral region-- Patient has had enterococcus faecalis 10/04 and MRSA 08/16 grown from buttock lesions. Continue daptomycin IV. Discussed with pharmacy and ordered 48h. Next dose will be on 10/12. Consulted infectious disease. Consulted wound care. PICC line Gentle IV fluid rehydration (2) Stage II pressure ulcer of sacral region: See above (3) Parkinson disease: Continue usual regimen of carbidopa levodopa and Neupro (4) Vitamin B12 deficiency: Continue oral supplement 1000 mcg every morning (5) Anxiety with depression: Continue usual regimen of buspirone 3 times daily and mirtazapine at bedtime (6) Pancreatic insufficiency: Resume pancreatic enzymes Zenpep or equivalent when dietary intake is normalized (7) DVT prophylaxis: SCDs Spent 25 minutes in mnagement of patient this included chart review. Subjective Patient reports no new complaints. Daughter is at bedside and states she did well most of the day, but now this evening she feels tired. She also is concerned that she may be having a fever. Nurse states last fever was the day prior. Review of Systems Review of Systems: Unobtainable due to mental health condition Physical Exam Physical Exam: General: no distress Eyes: normal inspection, PERLL Respiratory: chest non tender, clear to auscultation, normal breath sounds, no respiratory distress, no accessory muscle use Cardiac: regular rate and rhythm, no rub or gallop, no murmur, no edema, no jvd GI/: active bowel sounds, no abd pain or tenderness, soft, non distended Extremities: normal range of motion, generalized weakness, non tender , wound on affected extremity shows less erythema, but no drainage of any kind) Neuro/Psych: alert and oriented to place and person, normal mood and affect Skin: normal color, dry, fragile Results & Data Vital Signs (Past 12 Hours) Vital Signs Temp Pulse Resp BP Pulse Ox 10/11/18 18:58 38.1 C H 10/11/18 15:37 36.8 C 85 20 91/60 L 96
[2018-10-12] MEDS: CARBIDOPA/LEVODOPA 25/100MG TAB PO SCH ×5 (06:30→19:25)
[2018-10-12] MEDS: CARBIDOPA/LEVODOPA 50/200MG EXT REL TAB PO SCH ×6 (06:31→21:51)
[2018-10-12 07:46] LABS: Hematocrit (blood only) 30.6 % (37-47); Hemoglobin 10.4 g/dL (12.0-16.0); Nucleated RBC # (auto) 0.02 K/uL (0-0); Nucleated RBC % (auto) 0.1 %; Platelet Count 280 K/uL (130-400); RDW Standard Deviation 48.8 fL (36.4-46.3); Red Blood Count 3.22 M/uL (4.2-5.4); White Blood Count 13.47 K/uL (4.8-10.8)
[2018-10-12 08:24] LABS: BUN Creatinine Ratio 20.3 (10-20); Calcium 9.3 mg/dl (8.5-10.1); Creatinine Clr Calc Pharmacy 26.6 ml/min; Est GFR (African American) 76.8; Est GFR (Non-African American) 66.3; Potassium 4.2 mmol/L (3.5-5.1)
[2018-10-12] MEDS: MULTIVITAMIN TAB PO SCH (09:12)
[2018-10-12] MEDS: CHOLECALCIFEROL 1,000 UNITS TAB PO SCH (09:12)
[2018-10-12] MEDS: CYANOCOBALAMIN 500 MCG TABLET (VITAMIN B-12) PO SCH (09:12)
[2018-10-12] MEDS: SERTRALINE 20 MG/ML PO SCH (09:14)
[2018-10-12] MEDS: ARTIFICIAL TEARS OP SCH ×4 (09:14→21:53)
[2018-10-12] MEDS: ASPIRIN 81 MG CHEW PO SCH (09:24)
--- NOTE | 2018-10-12 19:53 | Infectious Disease Progress Nt ---
Date of Service October 12, 2018 Assessment & Plan (1) Cellulitis of left lower extremity without foot: 88-year-old female with infected traumatic wound to her left lower extremity, as well as sacral pressure sore. Previously isolated MRSA and enterococcus should be well covered by daptomycin. Continue IV daptomycin, likely need few more days of IV therapy. Will follow. (2) Stage II pressure ulcer of sacral region: (3) Enterococcal infection: Subjective Patient seen in follow-up for left leg infection. Appears comfortable, remains afebrile. No increase in pain. Review of Systems Review of Systems: All systems reviewed & are unremarkable except as noted in HPI & below Physical Exam Constitutional: WD/WN, vitals as above comfortable; no acute distress Eyes: PERRL, conjunctivae normal, anicteric sclerae ENMT: external ear and nose normal, oropharynx normal Neck: trachea midline, no thyromegaly neck nontender Respiratory: normal respiratory effort, lungs clear to auscultation normal percussion; does not use accessory muscles Cardiovascular: Rate/Rhythm: regular rate and regular rhythm Heart Sounds: normal S1 and normal S2; no gallop, no murmur and no cardiac rub Vessels: normal peripheral pulses; no JVD Gastrointestinal (Abdomen): normal bowel sounds, soft, nontender, no hepatosplenomegaly Musculoskeletal: no cyanosis or clubbing, extremities motor strength 5/5 Spine: thoracic spine normal to inspection and lumbar spine normal to inspection; no cervical spinal tenderness Skin: normal turgor and + wound (Sacral pressure sore with some surrounding erythema, left lower leg superficial hematoma with surrounding erythema); no rashes Neurologic: moves all extremities, awake and + confused Psychiatric: Orientation: alert and oriented to person Lymphatic: no cervical or axillary lymphadenopathy no inguinal lymphadenopathy Results & Data Vital Signs (Past 12 Hours) Vital Signs Temp Pulse Resp BP Pulse Ox 10/12/18 14:59 37.2 C 79 18 159/91 H 99 Laboratory Results Short CBC 10/12/18 Range/Units 07:26 WBC 13.47 H (4.8-10.8) K/uL Hgb 10.4 L (12.0-16.0) g/dL Hct 30.6 L (37-47) % Plt Count 280 (130-400) K/uL BMP 10/12/18 07:26 Sodium 137 Potassium 4.2 Chloride 105 Carbon Dioxide 26 BUN 16 Creatinine 0.80 Glucose 93 Calcium 9.3 Diagnostic Findings Microbiology 10/09/18 03:40 Blood Blood Culture - Preliminary No growth to date. 10/09/18 03:25 Blood Blood Culture - Preliminary No growth to date.
[2018-10-12] MEDS: ARTIFICIAL TEARS OP OINT 3.5 GM TUBE OP SCH (21:54)
[2018-10-12] MEDS: MIRTAZAPINE TAB 15 MG TAB PO SCH (22:03)
--- NOTE | 2018-10-12 23:57 | Hospitalist Progress Note ---
Date of Service October 12, 2018 Assessment & Plan (1) Cellulitis of left lower extremity without foot: Cellulitis of left lower extremity/stage II pressure ulcer of sacral region-- Patient has had enterococcus faecalis 10/04 and MRSA 08/16 grown from buttock lesions. Continue daptomycin IV. Discussed with pharmacy and ordered 48h. Received dose today. Consulted infectious disease. Consulted wound care. PICC line Gentle IV fluid rehydration CBC appears to be improving. Patient still had a fever yesterday. Patient though is lehrgic and may be due to poor nutrition intake. (more on this below) (2) Stage II pressure ulcer of sacral region: See above (3) Parkinson disease: Continue usual regimen of carbidopa levodopa and Neupro (4) Vitamin B12 deficiency: Continue oral supplement 1000 mcg every morning (5) Anxiety with depression: Continue usual regimen of buspirone 3 times daily and mirtazapine at bedtime (6) Pancreatic insufficiency: Resume pancreatic enzymes Zenpep or equivalent when dietary intake is normalized (7) Severe protein-calorie malnutrition ([place]: less than 60% of standard weight): severe protein-calorie malnutrition Patient has moderate depletion of subcutaneous fat seen in the orbital region; Moderate depletion of muscle mass seen in the temples, patellar region & posterior calf region as well as pressure injury on sacrum. Placed senior system operator consult, MVI daily resume Vit D and B12 supplements upgrade diet as able (8) DVT prophylaxis: SCDs Spent 25 minutes in mnagement of patient this included chart review. Subjective 88 yo female is sitting in chair comfortably. Her daughter is at bedside, She reports that she appears to be more lethargic than usual. Review of Systems Review of Systems: All systems reviewed & are unremarkable except as noted in HPI & below Physical Exam Physical Exam: General: no distress Eyes: normal inspection, PERLL Respiratory: chest non tender, clear to auscultation, normal breath sounds, no respiratory distress, no accessory muscle use Cardiac: regular rate and rhythm, no rub or gallop, no murmur, no edema, no jvd GI/: active bowel sounds, no abd pain or tenderness, soft, non distended Extremities: normal range of motion, generalized weakness, non tender , wound on affected extremity shows less erythema, but no drainage of any kind) Neuro/Psych: alert and oriented to place and person, normal mood and affect Skin: normal color, dry, fragile Results & Data Vital Signs (Past 12 Hours) Vital Signs Temp Pulse Resp BP Pulse Ox 10/12/18 23:00 37.2 C 74 18 118/77 97 10/12/18 14:59 37.2 C 79 18 159/91 H 99
[2018-10-13] MEDS: CARBIDOPA/LEVODOPA 25/100MG TAB PO SCH ×5 (06:06→19:18)
[2018-10-13] MEDS: CARBIDOPA/LEVODOPA 50/200MG EXT REL TAB PO SCH ×6 (06:07→21:54)
[2018-10-13 06:33] LABS: Hematocrit (blood only) 30.2 % (37-47); Hemoglobin 10.8 g/dL (12.0-16.0); Mean Corpuscular Hgb Conc 35.8 g/dL (32-36); Mean Corpuscular Volume 92.6 fL (80-100); Mean Platelet Volume 9.8 fL (7.4-10.4); Platelet Count 288 K/uL (130-400); RDW Coefficient of Variation 13.8 % (11.5-14.5); RDW Standard Deviation 46.9 fL (36.4-46.3); Red Blood Count 3.26 M/uL (4.2-5.4); White Blood Count 12.17 K/uL (4.8-10.8)
[2018-10-13] MEDS: DAPTOmycin 150 MG in SYRINGE 0 ML IV SCH (08:18)
[2018-10-13] MEDS: CHOLECALCIFEROL 1,000 UNITS TAB PO SCH (08:19)
[2018-10-13] MEDS: MULTIVITAMIN TAB PO SCH (08:19)
[2018-10-13] MEDS: CYANOCOBALAMIN 500 MCG TABLET (VITAMIN B-12) PO SCH (08:19)
[2018-10-13] MEDS: SERTRALINE 20 MG/ML PO SCH (08:21)
[2018-10-13] MEDS: ASPIRIN 81 MG CHEW PO SCH (08:23)
[2018-10-13] MEDS: ARTIFICIAL TEARS OP SCH ×4 (08:40→21:54)
--- NOTE | 2018-10-13 20:20 | Infectious Disease Progress Nt ---
Date of Service October 13, 2018 Assessment & Plan (1) Cellulitis of left lower extremity without foot: 88-year-old female with infected traumatic wound to her left lower extremity, as well as sacral pressure sore. Previously isolated MRSA and enterococcus should be well covered by daptomycin. Could consider transition to oral therapy with Zyvox, will with all involved. Will follow. (2) Stage II pressure ulcer of sacral region: (3) Enterococcal infection: Subjective Patient seen in follow-up for left leg infection. Appears comfortable, remains afebrile. No increase in pain. Review of Systems Review of Systems: All systems reviewed & are unremarkable except as noted in HPI & below Physical Exam Constitutional: WD/WN, vitals as above comfortable; no acute distress Eyes: PERRL, conjunctivae normal, anicteric sclerae ENMT: external ear and nose normal, oropharynx normal Neck: trachea midline, no thyromegaly neck nontender Respiratory: normal respiratory effort, lungs clear to auscultation normal percussion; does not use accessory muscles Cardiovascular: Rate/Rhythm: regular rate and regular rhythm Heart Sounds: normal S1 and normal S2; no gallop, no murmur and no cardiac rub Vessels: normal peripheral pulses; no JVD Gastrointestinal (Abdomen): normal bowel sounds, soft, nontender, no hepatosplenomegaly Musculoskeletal: no cyanosis or clubbing, extremities motor strength 5/5 Spine: thoracic spine normal to inspection and lumbar spine normal to inspection; no cervical spinal tenderness Skin: normal turgor and + wound (Sacral pressure sore with some surrounding erythema, left lower leg superficial hematoma with surrounding erythema); no rashes Neurologic: moves all extremities, awake and + confused Psychiatric: Orientation: alert and oriented to person Lymphatic: no cervical or axillary lymphadenopathy no inguinal lymphadenopathy Results & Data Vital Signs (Past 12 Hours) Vital Signs Temp Pulse Resp BP Pulse Ox 10/13/18 15:34 36.8 C 76 18 102/63 98 Laboratory Results Short CBC 10/13/18 Range/Units 06:21 WBC 12.17 H (4.8-10.8) K/uL Hgb 10.8 L (12.0-16.0) g/dL Hct 30.2 L (37-47) % Plt Count 288 (130-400) K/uL Diagnostic Findings Microbiology 10/09/18 03:40 Blood Blood Culture - Preliminary No growth to date. 10/09/18 03:25 Blood Blood Culture - Preliminary No growth to date.
[2018-10-13] MEDS: ARTIFICIAL TEARS OP OINT 3.5 GM TUBE OP SCH (21:54)
[2018-10-13] MEDS: MIRTAZAPINE TAB 15 MG TAB PO SCH (21:54)
--- NOTE | 2018-10-13 22:17 | Hospitalist Progress Note ---
Date of Service October 13, 2018 Assessment & Plan (1) Cellulitis of left lower extremity without foot: Cellulitis of left lower extremity/stage II pressure ulcer of sacral region-- Patient has had enterococcus faecalis 10/04 and MRSA 08/16 grown from buttock lesions. Continue daptomycin IV. Discussed with pharmacy and ordered 48h. Received dose today. Consulted infectious disease. Consulted wound care. PICC line Gentle IV fluid rehydration CBC appears to be improving. Patient has not had a fever for over 24 hours. Patient is also less lethargic today (2) Stage II pressure ulcer of sacral region: See above (3) Parkinson disease: Continue usual regimen of carbidopa levodopa and Neupro (4) Vitamin B12 deficiency: Continue oral supplement 1000 mcg every morning (5) Anxiety with depression: Continue usual regimen of buspirone 3 times daily and mirtazapine at bedtime (6) Pancreatic insufficiency: Resume pancreatic enzymes Zenpep or equivalent when dietary intake is normalized (7) Severe protein-calorie malnutrition ([place]: less than 60% of standard weight): severe protein-calorie malnutrition Patient has moderate depletion of subcutaneous fat seen in the orbital region; Moderate depletion of muscle mass seen in the temples, patellar region & posterior calf region as well as pressure injury on sacrum. Placed plate shear operator consult, MVI daily resume Vit D and B12 supplements upgrade diet as able (8) DVT prophylaxis: SCDs Spent 25 minutes in mnagement of patient this included chart review. Subjective Patient appears comfortbale. She has no new complaints. She has not had a fever so far today. She converses with me but has no complaints. Daughter is at bedside and states that she appears to have more energy but is not at her baseline. She has been getting weaker over the course of the past few months. She does state though that she has been eating. Review of Systems Review of Systems: Unobtainable due to mental health condition Physical Exam Physical Exam: General: no distress Eyes: normal inspection, PERLL Respiratory: chest non tender, clear to auscultation, normal breath sounds, no respiratory distress, no accessory muscle use Cardiac: regular rate and rhythm, no rub or gallop, no murmur, no edema, no jvd GI/: active bowel sounds, no abd pain or tenderness, soft, non distended Extremities: normal range of motion, generalized weakness, non tender , wound on affected extremity shows less erythema, but no drainage of any kind) Neuro/Psych: alert and oriented to place and person, normal mood and affect Skin: normal color, dry, fragile Results & Data Vital Signs (Past 12 Hours) Vital Signs Temp Pulse Resp BP Pulse Ox 10/13/18 15:34 36.8 C 76 18 102/63 98
[2018-10-14] MEDS: CARBIDOPA/LEVODOPA 50/200MG EXT REL TAB PO SCH ×6 (05:53→21:55)
[2018-10-14] MEDS: CARBIDOPA/LEVODOPA 25/100MG TAB PO SCH ×5 (05:53→19:35)
[2018-10-14] MEDS: CHOLECALCIFEROL 1,000 UNITS TAB PO SCH (08:16)
[2018-10-14] MEDS: MULTIVITAMIN TAB PO SCH (08:16)
[2018-10-14] MEDS: ASPIRIN 81 MG CHEW PO SCH (08:16)
[2018-10-14] MEDS: CYANOCOBALAMIN 500 MCG TABLET (VITAMIN B-12) PO SCH (08:16)
[2018-10-14] MEDS: SERTRALINE 20 MG/ML PO SCH (08:18)
[2018-10-14] MEDS: ARTIFICIAL TEARS OP SCH ×4 (08:19→21:54)
[2018-10-14 08:50] LABS: Basophils # (auto) 0.05 K/uL (0-0.2); Basophils % (auto) 0.6 %; Eosinophils # (auto) 0.14 K/uL (0-0.5); Eosinophils % (auto) 1.7 %; Hematocrit (blood only) 30.1 % (37-47); Hemoglobin 10.5 g/dL (12.0-16.0); Immature Granulocytes # (auto) 0.03 K/uL (0.00-0.02); Immature Granulocytes % (auto) 0.4 %; Lymphocytes # (auto) 1.68 K/uL (1.2-3.4); Lymphocytes % (auto) 20.5 %; Mean Corpuscular Hgb Conc 34.9 g/dL (32-36); Mean Corpuscular Volume 94.4 fL (80-100); Mean Platelet Volume 9.9 fL (7.4-10.4); Monocytes # (auto) 0.96 K/uL (0.11-0.59); Monocytes % (auto) 11.7 %; Neutrophils # (auto) 5.32 K/uL (1.4-6.5); Neutrophils % (auto) 65.1 %; Platelet Count 315 K/uL (130-400); RDW Coefficient of Variation 13.8 % (11.5-14.5); Red Blood Count 3.19 M/uL (4.2-5.4); White Blood Count 8.18 K/uL (4.8-10.8)
[2018-10-14 09:17] LABS: Albumin Level 2.5 gm/dl (3.4-5.0); BUN Creatinine Ratio 20.1 (10-20); Calcium 9.1 mg/dl (8.5-10.1); Creatinine Clr Calc Pharmacy 20.5 ml/min; Est GFR (African American) 55.9; Est GFR (Non-African American) 48.3
[2018-10-14 09:19] LABS: Albumin Globulin Ratio 0.6 (0.9-2); Bilirubin,Total 0.5 mg/dl (0.2-1); Globulin 3.9 gm/dl (2.5-4.0); Total Protein 6.4 gm/dl (6.4-8.2)
--- NOTE | 2018-10-14 14:38 | Infectious Disease Progress Nt ---
Date of Service October 14, 2018 Assessment & Plan (1) Cellulitis of left lower extremity without foot: 88-year-old female with infected traumatic wound to her left lower extremity, as well as sacral pressure sore. Previously isolated MRSA and enterococcus should be well covered by daptomycin. Could consider transition to oral therapy with Zyvox, will with all involved. Will follow. (2) Stage II pressure ulcer of sacral region: (3) Enterococcal infection: Subjective Patient seen in follow-up for left leg infection. Appears comfortable, remains afebrile. No increase in pain. Review of Systems Review of Systems: All systems reviewed & are unremarkable except as noted in HPI & below Physical Exam Constitutional: WD/WN, vitals as above comfortable; no acute distress Eyes: PERRL, conjunctivae normal, anicteric sclerae ENMT: external ear and nose normal, oropharynx normal Neck: trachea midline, no thyromegaly neck nontender Respiratory: normal respiratory effort, lungs clear to auscultation normal percussion; does not use accessory muscles Cardiovascular: Rate/Rhythm: regular rate and regular rhythm Heart Sounds: normal S1 and normal S2; no gallop, no murmur and no cardiac rub Vessels: normal peripheral pulses; no JVD Gastrointestinal (Abdomen): normal bowel sounds, soft, nontender, no hepatosplenomegaly Musculoskeletal: no cyanosis or clubbing, extremities motor strength 5/5 Spine: thoracic spine normal to inspection and lumbar spine normal to inspection; no cervical spinal tenderness Skin: normal turgor and + wound (Sacral pressure sore with some surrounding erythema, left lower leg superficial hematoma with surrounding erythema); no rashes Neurologic: moves all extremities, awake and + confused Psychiatric: Orientation: alert and oriented to person Lymphatic: no cervical or axillary lymphadenopathy no inguinal lymphadenopathy Results & Data Vital Signs (Past 12 Hours) Vital Signs Temp Pulse Resp BP Pulse Ox 10/14/18 07:20 36.8 C 79 18 90/48 L 94 Laboratory Results Short CBC 10/14/18 Range/Units 08:37 WBC 8.18 (4.8-10.8) K/uL Hgb 10.5 L (12.0-16.0) g/dL Hct 30.1 L (37-47) % Plt Count 315 (130-400) K/uL BMP 10/14/18 08:37 Sodium 135 L Potassium 4.0 Chloride 102 Carbon Dioxide 25 BUN 21 H Creatinine 1.04 Glucose 128 H Calcium 9.1 Liver Function 10/14/18 Range/Units 08:37 Total Bilirubin 0.5 (0.2-1) mg/dl AST 29 (15-37) U/L ALT 8 L (12-78) U/L Alkaline Phosphatase 86 (45-117) U/L Albumin 2.5 L (3.4-5.0) gm/dl Diagnostic Findings Microbiology 10/09/18 03:40 Blood Blood Culture - Final No growth 10/09/18 03:25 Blood Blood Culture - Final No growth
[2018-10-14] MEDS: MIRTAZAPINE TAB 15 MG TAB PO SCH (21:56)
[2018-10-14] MEDS: ARTIFICIAL TEARS OP OINT 3.5 GM TUBE OP SCH (21:57)
--- NOTE | 2018-10-14 23:58 | Hospitalist Progress Note ---
Date of Service October 14, 2018 Assessment & Plan (1) Cellulitis of left lower extremity without foot: Cellulitis of left lower extremity/stage II pressure ulcer of sacral region-- Patient has had enterococcus faecalis 10/04 and MRSA 08/16 grown from buttock lesions. Continue daptomycin IV. Discussed with pharmacy and ordered 48h. Received dose today. Consulted infectious disease. Consulted wound care. PICC line Gentle IV fluid rehydration CBC has normalized. Patient has not had a fever since 10/11 Patient is no longer lethargic. Informed daughter that plan could be to discharge patient to personal care facility on oral antibiotics but personal care facility is unable to have adequate staff for her to return home until Wednesday. (2) Stage II pressure ulcer of sacral region: See above (3) Parkinson disease: Continue usual regimen of carbidopa levodopa and Neupro (4) Vitamin B12 deficiency: Continue oral supplement 1000 mcg every morning (5) Anxiety with depression: Continue usual regimen of buspirone 3 times daily and mirtazapine at bedtime (6) Pancreatic insufficiency: Resume pancreatic enzymes Zenpep or equivalent when dietary intake is normalized (7) Severe protein-calorie malnutrition ([place]: less than 60% of standard weight): severe protein-calorie malnutrition Patient has moderate depletion of subcutaneous fat seen in the orbital region; Moderate depletion of muscle mass seen in the temples, patellar region & posterior calf region as well as pressure injury on sacrum. Placed vice president of customer service consult, MVI daily resume Vit D and B12 supplements upgrade diet as able (8) DVT prophylaxis: SCDs Spent 25 minutes in mnagement of patient this included chart review. Subjective Patient reports no new complaints. D/W Daughter who states she is close to her baseline in regards to her mental status. She would still like physical therapy at discharge but to have her return to her personal care facility. Review of Systems Review of Systems: All systems reviewed & are unremarkable except as noted in HPI & below Physical Exam Physical Exam: General: no distress Eyes: normal inspection, PERLL Respiratory: chest non tender, clear to auscultation, normal breath sounds, no respiratory distress, no accessory muscle use Cardiac: regular rate and rhythm, no rub or gallop, no murmur, no edema, no jvd GI/: active bowel sounds, no abd pain or tenderness, soft, non distended Extremities: normal range of motion, generalized weakness, non tender , wound on affected extremity shows less erythema, but no drainage of any kind) Neuro/Psych: alert and oriented to place and person, normal mood and affect Skin: normal color, dry, fragile Results & Data Vital Signs (Past 12 Hours) Vital Signs Temp Pulse Resp BP Pulse Ox 10/14/18 15:46 36.7 C 77 20 126/77 97
[2018-10-15] MEDS: CYANOCOBALAMIN 500 MCG TABLET (VITAMIN B-12) PO SCH (08:32)
[2018-10-15] MEDS: MULTIVITAMIN TAB PO SCH (08:32)
[2018-10-15] MEDS: CHOLECALCIFEROL 1,000 UNITS TAB PO SCH (08:33)
[2018-10-15] MEDS: CARBIDOPA/LEVODOPA 50/200MG EXT REL TAB PO SCH ×7 (08:35→21:52)
[2018-10-15] MEDS: CARBIDOPA/LEVODOPA 25/100MG TAB PO SCH ×5 (08:36→18:56)
[2018-10-15] MEDS: ARTIFICIAL TEARS OP SCH ×4 (08:36→21:41)
[2018-10-15] MEDS: SERTRALINE 20 MG/ML PO SCH (08:38)
[2018-10-15] MEDS: ASPIRIN 81 MG CHEW PO SCH (11:09)
[2018-10-15] MEDS: DAPTOmycin 150 MG in SYRINGE 0 ML IV SCH (11:12)
--- NOTE | 2018-10-15 20:26 | Infectious Disease Progress Nt ---
Date of Service October 15, 2018 Assessment & Plan (1) Cellulitis of left lower extremity without foot: 88-year-old female with infected traumatic wound to her left lower extremity, as well as sacral pressure sore. Previously isolated MRSA and enterococcus should be well covered by daptomycin. Could consider transition to oral therapy with Zyvox, will with all involved. Will follow. (2) Stage II pressure ulcer of sacral region: (3) Enterococcal infection: Review of Systems Review of Systems: All systems reviewed & are unremarkable except as noted in HPI & below Physical Exam Constitutional: WD/WN, vitals as above comfortable; no acute distress Eyes: PERRL, conjunctivae normal, anicteric sclerae ENMT: external ear and nose normal, oropharynx normal Neck: trachea midline, no thyromegaly neck nontender Respiratory: normal respiratory effort, lungs clear to auscultation normal percussion; does not use accessory muscles Cardiovascular: Rate/Rhythm: regular rate and regular rhythm Heart Sounds: normal S1 and normal S2; no gallop, no murmur and no cardiac rub Vessels: no rmal peripheral pulses; no JVD Gastrointestinal (Abdomen): normal bowel sounds, soft, nontender, no hepatosplenomegaly Musculoskeletal: no cyanosis or clubbing, extremities motor strength 5/5 Spine: thoracic spine normal to inspection and lumbar spine normal to inspection; no cervical spinal tenderness Skin: normal turgor and + wound (Sacral pressure sore with some surrounding erythema, left lower leg superficial hematoma with surrounding erythema); no rashes Neurologic: moves all extremities, awake and + confused Psychiatric: Orientation: alert and oriented to person Lymphatic: no cervical or axillary lymphadenopathy no inguinal lymphadenopathy Results & Data Vital Signs (Past 12 Hours) Vital Signs Temp Pulse Resp BP Pulse Ox 10/15/18 15:09 36.7 C 77 20 87/59 L 96 Laboratory Results Laboratory Results - last 48 hr 10/14/18 10/14/18 08:37 08:37 WBC 8.18 RBC 3.19 L Hgb 10.5 L Hct 30.1 L MCV 94.4 MCH 32.9 MCHC 34.9 RDW Std Deviation 48.0 H RDW Coeff of [place] 13.8 Plt Count 315 MPV 9.9 Immature Gran % (Auto) 0.4 Neut % (Auto) 65.1 Lymph % (Auto) 20.5 [place] % (Auto) 11.7 Eos % (Auto) 1.7 Baso % (Auto) 0.6 Immature Gran # (Auto) 0.03 H Neut # (Auto) 5.32 Lymph # (Auto) 1.68 [place] # (Auto) 0.96 H Eos # (Auto) 0.14 Baso # (Auto) 0.05 Sodium 135 L Potassium 4.0 Chloride 102 Carbon Dioxide 25 Anion Gap 8.0 BUN 21 H Creatinine 1.04 Est Cr Clr Drug Dosing 20.5 Est GFR ( Amer) 55.9 Est GFR (Non-Af Amer) 48.3 BUN/Creatinine Ratio 20.1 H Glucose 128 H Calcium 9.1 Total Bilirubin 0.5 AST 29 ALT 8 L Alkaline Phosphatase 86 Total Protein 6.4 Albumin 2.5 L Globulin 3.9 Albumin/Globulin Ratio 0.6 L Diagnostic Findings Microbiology 10/09/18 03:40 Blood Blood Culture - Final No growth 10/09/18 03:25 Blood Blood Culture - Final No growth
[2018-10-15] MEDS: ARTIFICIAL TEARS OP OINT 3.5 GM TUBE OP SCH (21:41)
[2018-10-15] MEDS: MIRTAZAPINE TAB 15 MG TAB PO SCH ×2 (21:42→21:52)
--- NOTE | 2018-10-15 22:29 | Hospitalist Progress Note ---
Date of Service October 15, 2018 Assessment & Plan (1) Cellulitis of left lower extremity without foot: Cellulitis of left lower extremity/stage II pressure ulcer of sacral region-- Patient has had enterococcus faecalis 10/04 and MRSA 08/16 grown from buttock lesions. Continue daptomycin IV. Discussed with pharmacy and ordered q48h. Consulted infectious disease. Consulted wound care. PICC line Gentle IV fluid rehydration CBC has normalized. Patient has not had a fever since 10/11 Patient is no longer lethargic. Informed daughter that plan could be to discharge patient to personal care facility on oral antibiotics but personal care facility is unable to have adequate staff for her to return home until Wednesday. (2) Stage II pressure ulcer of sacral region: See above (3) Parkinson disease: Continue usual regimen of carbidopa levodopa and Neupro (4) Vitamin B12 deficiency: Continue oral supplement 1000 mcg every morning (5) Anxiety with depression: Continue usual regimen of buspirone 3 times daily and mirtazapine at bedtime (6) Pancreatic insufficiency: Resume pancreatic enzymes Zenpep or equivalent when dietary intake is normalized (7) Severe protein-calorie malnutrition ([place]: less than 60% of standard weight): severe protein-calorie malnutrition Patient has moderate depletion of subcutaneous fat seen in the orbital region; Moderate depletion of muscle mass seen in the temples, patellar region & posterior calf region as well as pressure injury on sacrum. Placed plastic die maker apprentice consult, MVI daily resume Vit D and B12 supplements upgrade diet as able (8) DVT prophylaxis: SCDs Spent 25 minutes in mnagement of patient this included chart review. Subjective Patient appears to be nearing her baseline. She ambulated the halls as per her daughter. Review of Systems Review of Systems: All systems reviewed & are unremarkable except as noted in HPI & below Physical Exam Physical Exam: General: No distress Eyes: normal inspection, PERLL Respiratory: chest non tender, clear to auscultation, normal breath sounds, no respiratory distress, no accessory muscle use Cardiac: regular rate and rhythm, no rub or gallop, no murmur, no edema, no jvd GI/: active bowel sounds, no abd pain or tenderness, soft, non distended Extremities: normal range of motion, generalized weakness, non tender , wound on affected extremity shows less erythema, but no drainage of any kind) Neuro/Psych: alert and oriented to place and person, normal mood and affect Skin: normal color, dry, fragile Results & Data Vital Signs (Past 12 Hours) Vital Signs Temp Pulse Resp BP Pulse Ox 10/15/18 15:09 36.7 C 77 20 87/59 L 96
[2018-10-16] MEDS: ASPIRIN 81 MG CHEW PO SCH (07:30)
[2018-10-16] MEDS: CHOLECALCIFEROL 1,000 UNITS TAB PO SCH (07:42)
[2018-10-16] MEDS: CARBIDOPA/LEVODOPA 25/100MG TAB PO SCH ×5 (07:43→19:32)
[2018-10-16] MEDS: MULTIVITAMIN TAB PO SCH (07:43)
[2018-10-16] MEDS: CARBIDOPA/LEVODOPA 50/200MG EXT REL TAB PO SCH ×6 (07:43→20:54)
[2018-10-16] MEDS: CYANOCOBALAMIN 500 MCG TABLET (VITAMIN B-12) PO SCH (07:44)
[2018-10-16] MEDS: SERTRALINE 20 MG/ML PO SCH (07:45)
[2018-10-16] MEDS: ARTIFICIAL TEARS OP SCH ×4 (07:45→20:53)
[2018-10-16] MEDS: ARTIFICIAL TEARS OP OINT 3.5 GM TUBE OP SCH (20:53)
[2018-10-16] MEDS: MIRTAZAPINE TAB 15 MG TAB PO SCH (20:54)
--- NOTE | 2018-10-16 23:07 | Hospitalist Progress Note ---
Date of Service October 16, 2018 Assessment & Plan (1) Cellulitis of left lower extremity without foot: Cellulitis of left lower extremity/stage II pressure ulcer of sacral region-- Patient has had enterococcus faecalis 10/04 and MRSA 08/16 grown from buttock lesions. Continue daptomycin IV. Patient will be discharged on oral zyvox. D/W ID dosing regimen Consulted infectious disease. Consulted wound care. PICC line Gentle IV fluid rehydration CBC has normalized. Patient has not had a fever since 10/11 Patient is no longer lethargic. Informed daughter that plan could be to discharge patient to personal care facility on oral antibiotics: Zyvox. Personal care facility is unable to have adequate staff for her to return home until 10/17 (2) Stage II pressure ulcer of sacral region: See above (3) Parkinson disease: Continue usual regimen of carbidopa levodopa and Neupro (4) Vitamin B12 deficiency: Continue oral supplement 1000 mcg every morning (5) Anxiety with depression: Continue usual regimen of buspirone 3 times daily and mirtazapine at bedtime (6) Pancreatic insufficiency: Resume pancreatic enzymes Zenpep or equivalent when dietary intake is normalized (7) Severe protein-calorie malnutrition ([place]: less than 60% of standard weight): severe protein-calorie malnutrition Patient has moderate depletion of subcutaneous fat seen in the orbital region; Moderate depletion of muscle mass seen in the temples, patellar region & posterior calf region as well as pressure injury on sacrum. Placed assembly line supervisor consult, MVI daily resume Vit D and B12 supplements upgrade diet as able (8) DVT prophylaxis: SCDs Spent 25 minutes in mnagement of patient this included chart review. Dispo: discharge wednesday. Check with case management landry of oral zyvox. Subjective 88 yo female reports no new symptoms. Daughter is at bedside, updated. Review of Systems Review of Systems: All systems reviewed & are unremarkable except as noted in HPI & below Physical Exam Physical Exam: General: No distress Eyes: normal inspection, PERLL Respiratory: chest non tender, clear to auscultation, normal breath sounds, no respiratory distress, no accessory muscle use Cardiac: regular rate and rhythm, no rub or gallop, no murmur, no edema, no jvd GI/: active bowel sounds, no abd pain or tenderness, soft, non distended Extremities: normal range of motion, generalized weakness, non tender , wound on affected extremity shows less erythema, but no drainage of any kind) Neuro/Psych: alert and oriented to place and person, normal mood and affect Skin: normal color, dry, fragile Results & Data Vital Signs (Past 12 Hours) Vital Signs Temp Pulse Resp BP Pulse Ox 10/16/18 22:55 37.0 C 82 18 97/58 L 96 10/16/18 16:03 36.9 C 82 20 134/70 95
[2018-10-17] MEDS: CARBIDOPA/LEVODOPA 50/200MG EXT REL TAB PO SCH ×3 (06:31→13:03)
[2018-10-17] MEDS: CARBIDOPA/LEVODOPA 25/100MG TAB PO SCH ×3 (06:31→13:04)
[2018-10-17] MEDS: CHOLECALCIFEROL 1,000 UNITS TAB PO SCH (08:50)
[2018-10-17] MEDS: CYANOCOBALAMIN 500 MCG TABLET (VITAMIN B-12) PO SCH (08:50)
[2018-10-17] MEDS: DAPTOmycin 150 MG in SYRINGE 0 ML IV SCH (08:51)
[2018-10-17] MEDS: ARTIFICIAL TEARS OP SCH ×2 (08:51→13:04)
[2018-10-17] MEDS: ASPIRIN 81 MG CHEW PO SCH (08:51)
[2018-10-17] MEDS: MULTIVITAMIN TAB PO SCH (08:51)
[2018-10-17] MEDS: SERTRALINE 20 MG/ML PO SCH (08:52)
--- NOTE | 2018-10-17 12:47 | Discharge Summary ---
Date of Service October 17, 2018 Admission HPI Per Admitting Provider The patient is a 88-year-old female resident of [facility], who has been followed at the wound care clinic for a buttock lesion, and more recently developed left lower extremity injury, there is now become infected and has presented to the ED for assessment. She has a history of enterococcus faecalis and staph aureus MRSA in her buttock wounds. She is also somewhat more fatigued than usual, appears dehydrated as well. Patient is unable to contribute significantly to her HPI and review of systems due to altered mental state, and her daughter who is with her, who has been her primary auto body builder apprentice for years until recently, is with her aunt and relates her information. Principal Diagnosis Left lower extremity cellulitis Discharge Exam Constitutional WD/WN, vitals as above Respiratory normal respiratory effort, lungs clear to auscultation Cardiovascular RRR, no murmur, no edema Gastrointestinal (Abdomen) normal bowel sounds, soft, nontender, no hepatosplenomegaly Musculoskeletal no cyanosis or clubbing, extremities motor strength 5/5 Skin no rashes, warm and dry Neurologic moves all extremities and awake Psychiatric A+Ox3, euthymic affect Discharge Data Allergies Allergy/AdvReac Type Severity Reaction Status Date / Time egg Allergy Unknown UNKNOWN Verified 10/09/18 05:44 Penicillins Allergy Unknown RASH Verified 10/09/18 05:44 Consultations 10/09/18 04:49 ED Decision to Admit Stat 10/09/18 08:33 Consult Case Management - Discharge Planning Routine Consult Infectious Diseases Routine Hospital Course (1) Cellulitis of left lower extremity without foot: Cellulitis of left lower extremity/stage II pressure ulcer of sacral region-- Patient has had enterococcus faecalis 10/04 and MRSA 08/16 grown from buttock lesions. Continue daptomycin IV - will need one more dose 10/19 to complete 10 day course - patient is renally dosed q48 hours. She will receive this dose at [facility]. ID had suggested Zyvox but it is contraindicated with mirtazapine and interacts with BuSpar and Sinemet Consulted infectious disease. Consulted wound care. CBC has normalized. Patient has not had a fever since 10/11 (2) Stage II pressure ulcer of sacral region: See above (3) Parkinson disease: Continue usual regimen of carbidopa levodopa and Neupro (4) Vitamin B12 deficiency: Continue oral supplement 1000 mcg every morning (5) Anxiety with depression: Continue usual regimen of buspirone 3 times daily and mirtazapine at bedtime (6) Pancreatic insufficiency: Resume pancreatic enzymes Zenpep or equivalent when dietary intake is normalized (7) Severe protein-calorie malnutrition ([place]: less than 60% of standard weight): severe protein-calorie malnutrition Transfer Clerk consult MVI daily resume Vit D and B12 supplements Regular diet (8) DVT prophylaxis: SCDs Total Time Total Time Spent Total Time Spent (In Minutes): greater than 30 minutes Discharge Plan Discharge Items Patient Disposition: Personal Half-Way Reason For Visit: LLE CELLULITIS, SACRAL PRESSURE ULCER Discharge Diagnosis: LLE cellulitis, sacral pressure ulcer Discharge Goals: Decrease discomfort and Improve disease control Activity: Resume your previous activity Activity Comment: gradually as tolerated Non-emergency contact: Primary Care Provider Call non-emergency contact if: you have any medication questions Follow-up/Referrals: Eze Benton DO [Primary Care Provider] - Diet: Regular Addtl Provider Instructions: You will need to receive your last dose of IV daptomycin 150 mg every 48 hours [facility] on [facility]. Please have physical and occupational therapy evaluate you at your [facility]. Sensicare should be applied to buttock wound. Left leg wound cleaned with saline and optifoam changed every three days Prescriptions: Continued multivitamin Tablet 1 tab PO QAM RF: 0 acetaminophen [Tylenol] 325 mg Tablet 650 mg PO Q4H MDD 3G/24HR PRN (Reason: Pain) RF: 0 carbidopa-levodopa [Sinemet CR] 50-200 mg Tablet Extended Release 0.5 tab PO 5XD RF: 0 carbidopa-levodopa [Sinemet CR] 50-200 mg Tablet Extended Release 1 tab PO HS RF: 0 cyanocobalamin (vitamin B-12) [Vitamin B-12] 1,000 mcg Tablet 1,000 mcg PO QAM RF: 0 docusate sodium 50 mg/15 mL Syrup 100 mg PO HS RF: 0 buspirone 10 mg Tablet 10 mg PO TID RF: 0 aspirin 81 mg Tablet,Chewable 81 mg PO QAM RF: 0 mirtazapine 15 mg Tablet 15 mg PO HS RF: 0 carbidopa-levodopa [Sinemet] 25-100 mg Tablet 0.5 tab PO 5XD RF: 0 sertraline [Zoloft] 20 mg/mL Concentrate 7 ml PO QAM RF: 0 Artificial Tears (PF) Dropperette 1 drp OPHTHALMIC (EYE) BID RF: 0 ferrous gluconate 324 mg (38 mg iron) Tablet 324 mg PO QAM RF: 0 Neupro 2 mg/24 hour Patch 24 Hour 2 mg TRANSDERMAL QAM RF: 0 cholecalciferol (vitamin D3) [Vitamin D3] 5,000 unit Tablet 5,000 unit PO QAM RF: 0 Zenpep 10,000-32,000 -42,000 unit Capsule,Delayed Release(Dr/Ec) 1 cap PO TIDM RF: 0 Zenpep 10,000-32,000 -42,000 unit Capsule,Delayed Release(Dr/Ec) 2 cap PO Q1H PRN (Reason: PENCREATICE ENZYME/DIGESTIVE) RF: 0 calcium carbonate-vitamin D3 [Oyster Shell Calcium-Vit D3] 500 mg(1,250mg) - 200 unit Tablet 1 tab PO QAM RF: 0 Artificial Tears (nguyen/min) 83-15 % Ointment 1 applic OPHTHALMIC (EYE) HS RF: 0 Stand-Alone Forms: [facility] Discharge Orders: Discharge Order (Routine); Ordered 10/17/18 Ordered By: Celina Cuevas Admission Data Admit Date/Time: 10/09/18 05:50 Attending Provider: Satinder Ayers Admit Provider: Gael Tucker Primary Care Provider: Eze Benton Other Providers: Gael Tucker ; Shahzad Downey ; Candelario Hill Service: Medical
== END 2018-10-17 13:55 | disposition home or self-care (01) | DRG 602 ==
LOC: ED 02:31 → 4E 05:50 → SUATTDRO 05:50 → 4E 08:10